=== PATIENT | male | born 1950 ===

== ENCOUNTER 2020-09-03 09:35 | Outpatient (REF) | payer MEDICARE, SELFPAY | END 2020-09-03 09:36 | disposition home or self-care (01) | LOC: HO.LAB 09:35 | PROVIDERS: Visit Provider Internal Medicine | DX: Z20.828 Contact with and (suspected) exposure to other viral communicable diseases (principal) | CPT/HCPCS: C9803; U0003 ==

== ENCOUNTER 2020-12-09 09:22 | Outpatient (REF) | payer MEDICARE, SELFPAY ==
--- NOTE | ~2020-12-09 | XR_ITS ---
EXAMINATION: XR HIP, RIGHT CLINICAL INFORMATION: Right hip pain COMPARISON: 06/11/2014 TECHNIQUE: Two views of the right hip. FINDINGS: Mild right hip arthritis, joint space loss. No acute fracture or dislocation. Small chronic appearing calcification adjacent to the greater trochanter. XR/XR hip RT min 2V IMPRESSION: Mild right hip arthritis. No evidence of acute osseous abnormality.
[2020-12-09 10:28] LABS: Alanine Aminotransferase 38 U/L (0-40); Albumin Level 4.3 g/dL (3.5-5.0); Alkaline Phosphatase 113 U/L (39-117); Anion Gap 12 (12-20); Aspartate Amino Transferase 24 U/L (5-37); Bilirubin Total 0.4 mg/dL (0.0-1.0); Blood Urea Nitrogen 16 mg/dL (9-16); Calcium 9.2 mg/dL (8.4-10.2); Carbon Dioxide 32 mmol/L (22-29); Chloride 102 mmol/L (96-108); Cholesterol 198 mg/dL; Estimated Glomerular Filt Rate > 60; Glucose Fasting 91 mg/dL (60-99); HDL Cholesterol 39 mg/dL; LDL Cholesterol Calculated 128 mg/dl; Potassium 4.3 mmol/L (3.3-5.1); Sodium 142 mmol/L (135-145); Total Protein 7.8 g/dL (6.5-8.0); Triglycerides 159 mg/dL
[2020-12-12 01:31] LABS: Folate 14.5 ng/mL (> or = 4.0); Vitamin B12 333 pg/mL (200-900)
[2020-12-13 11:46] LABS: Vitamin D 25-OH, D2 <4 ng/mL; Vitamin D 25-OH, D3 33 ng/mL; Vitamin D 25-OH, Total 33 ng/mL (30-100)
== END 2020-12-09 09:23 | disposition home or self-care (01) ==
LOC: HO.LAB 09:22
PROVIDERS: Visit Provider Internal Medicine
DX: M25.551 Pain in right hip (principal); E78.00 Pure hypercholesterolemia, unspecified; E78.5 Hyperlipidemia, unspecified; D51.0 Vitamin B12 deficiency anemia due to intrinsic factor deficiency; E55.9 Vitamin D deficiency, unspecified
CPT/HCPCS: 36415; 73502; 80053; 80061; 82306; 82607; 82746

== ENCOUNTER 2021-08-26 09:59 | Outpatient (RCR) | payer MEDICARE, SELFPAY ==
--- NOTE | 2021-08-26 11:31 | MHC.PT.EP ---
[facility] [place] [facility] [place] [facility] [place] [facility] [address] [place] Zhang [address] [phone] F: [phone] F: [phone] F: [phone] F: [phone] Physical Therapy Plan of Care Date of Evaluation: Date of Surgery: Diagnosis: pain in right hip Assessment: The pt arrived reporting right hip pain. He has a peculiar gait pattern where he looks as if he is hemiparetic. He hyperextends his left knee, leads with his right hand and right leg. He postures his left elbow. He has absolutely no control of his left knee terminal knee extension. Pt not able to correct gait pattern even with verbal cues. He has some comprehension difficulty as well with response to questions. He does best with clear one step commands. Pt given mat core and hip strength exercises. His history suggests he will respond best to flexion based exercises. He will also need balance retraining as part of his plan of care. Frequency and Duration: The patient will be seen 2x/week x 4 weeks. Short Term Goals: 1.Pt to demonstrate understanding of HEP. 2. Pt to be able to negotiate community obstacles such as curbs safely. Terminal Superintendent Goals: 1. The patient to be able to negotiate community obstacles such as curbs, ramps and open spaces without LOB for 100 feet. 4 weeks. - to improve activity tolerance to help community ambulation distances demonstrated by tolerating at least 45 minutes of therapeutic activity with less than 3 resting breaks. 3. Pt to be able to report a 50% incidence of right hip pain. Treatment Plan: Modalities to reduce pain, spasms and effusion. Manual therapy to restore motion and function. Therapeutic exercise to improve strength and flexibility. Neuromuscular re-education for posture and balance. Therapeutic activities to return to functional activities of daily living. Electronically signed by: Radha Fischer PT DPT Please sign and return to therapist. Thank you for your referral.
== END 2021-10-02 08:00 | disposition home or self-care (01) ==
LOC: HO.PT 09:59
PROVIDERS: PCP Internal Medicine; Visit Provider Internal Medicine
DX: M25.551 Pain in right hip (principal)
CPT/HCPCS: 97110; 97116; 97162

== ENCOUNTER 2021-12-21 08:56 | Outpatient (REF) | payer MEDICARE, SELFPAY ==
[2021-12-21 09:17] LABS: MANUAL DIFF FLAG NO
[2021-12-21 09:34] LABS: Basophils Absolute Auto 0.1 X10*3/uL (0.0-0.2); Basophils Percent Auto 0.9 % (0-2); Eosinophils Absolute Auto 0.4 X10*3/uL (0.0-0.4); Eosinophils Percent Auto 7.3 % (0-4); Hematocrit 40.7 % (42.0-52.0); Hemoglobin 12.9 g/dl (14.0-18.0); Imm Gran Abs Auto 0.02 X10*3/uL (0.00-0.03); Imm Gran Pct Auto 0.4 % (0.0-0.4); Lymphocytes Absolute Auto 1.9 X10*3/uL (1.2-4.9); Mean Corpuscular HGB Conc 31.7 g/dl (31.0-36.0); Mean Corpuscular Hemoglobin 27.7 pg (27.0-33.0); Mean Corpuscular Volume 87.3 fL (80.0-98.0); Mean Platelet Volume 9.6 fL (9.4-12.4); Monocytes Absolute Auto 0.4 X10*3/uL (0.1-1.2); Monocytes Percent Auto 7.3 % (2-11); Neutrophils Absolute Auto 2.8 x10*3/uL (2.0-8.3); Neutrophils Percent Auto 50.1 % (45-73); Platelet Count 210 X10*3/uL (160-400); Red Blood Count 4.66 X10*6/uL (4.60-5.80); Red Cell Distribution Width 14.2 % (11.0-16.0); White Blood Count 5.6 X10*3/uL (4.8-10.8)
[2021-12-21 10:08] LABS: Alanine Aminotransferase 17 U/L (0-40); Albumin Level 4.2 g/dL (3.5-5.0); Alkaline Phosphatase 86 U/L (39-117); Anion Gap 12 (12-20); Aspartate Amino Transferase 17 U/L (5-37); Bilirubin Total 0.3 mg/dL (0.0-1.0); Blood Urea Nitrogen 11 mg/dL (9-16); Calcium 9.7 mg/dL (8.4-10.2); Carbon Dioxide 31 mmol/L (22-29); Chloride 101 mmol/L (96-108); Cholesterol 242 mg/dL; Estimated Glomerular Filt Rate > 60; Glucose Fasting 99 mg/dL (60-99); HDL Cholesterol 40 mg/dL; LDL Cholesterol Calculated 161 mg/dl; Potassium 4.2 mmol/L (3.3-5.1); Sodium 140 mmol/L (135-145); Total Protein 7.8 g/dL (6.5-8.0); Triglycerides 208 mg/dL
[2021-12-21 10:40] LABS: Folate 15.5 ng/mL (> or = 4.0); Vitamin B12 501 pg/mL (200-900)
[2021-12-26 13:26] LABS: Vitamin D 25-OH, D2 <4 ng/mL; Vitamin D 25-OH, D3 31 ng/mL; Vitamin D 25-OH, Total 31 ng/mL (30-100)
== END 2021-12-21 08:57 | disposition home or self-care (01) ==
LOC: HO.LAB 08:56
PROVIDERS: PCP Internal Medicine; Visit Provider Internal Medicine
DX: D64.9 Anemia, unspecified (principal); K21.9 Gastro-esophageal reflux disease without esophagitis; E78.5 Hyperlipidemia, unspecified; D51.0 Vitamin B12 deficiency anemia due to intrinsic factor deficiency; E55.9 Vitamin D deficiency, unspecified
CPT/HCPCS: 36415; 80053; 80061; 82306; 82607; 82746; 85025

== ENCOUNTER 2023-04-26 11:11 | Outpatient (AMB) | payer MEDICARE, SELFPAY ==
--- NOTE | 2023-04-26 11:13 | A.OFFPC_ITS ---
Vital Signs 04/26/23 11:15 Height 5 ft 5 in Weight 205 lb BMI 34.1 BP 112/70 Blood Pressure Location Lt brachial Position Sitting Intake Visit Reasons: GERD, HLD Intake Note: Patient here for a follow up GERD, HLD, c/o left knee pain Nutritionist Public Health Required: No Accompanied by: Daughter Allergies No Known Allergies Allergy (Verified 04/26/23 11:27) Medication List - Last Reconciled 04/26/23 by Reyna Knutson MD cholecalciferol (vitamin D3) 50 mcg PO DAILY 90 days lidocaine 4% (Aspercreme (lidocaine)) 2 patches topical DAILY PRN omeprazole 20 mg PO DAILY 90 days Tobacco use date assessed: 10/27/22 Fall risk assessment: 1 Fall in past year Last assessed Fall Risk: 04/26/23 Dental Screening Dental Screen Date: 04/26/23 Did you have a dental visit in the last 12 months?: Yes Did you have a dental problem in the last 6 months where you did not have access to dental care?: No Was dental information given to patient?: Patient has dentist HPI HPI Comments History of Present Illness Details This is a 72-year-old male with pure hypercholesterolemia, GERD, pernicious anemia and low vitamin-D that comes today accompanied by daughter and daughter's friend Sara complaining of left knee pain that occasionally cause loss of balance and started few months ago. I will order x-ray and refer him to Ortho. Lipid panel will be reordered. GERD stable with PPIs. Vitamin B12 levels will also be order for his pernicious anemia. On supplements for low vitamin-D and vitamin-D levels will also be ordered. No chest pain or shortness of breath. Walks with a cane for gait stability. [facility] Medical History (Updated 04/26/23 @ 11:41 by Reyna Knutson MD) GERD (gastroesophageal reflux disease) Hypovitaminosis D Lumbar degenerative disc disease Osteoarthritis of right hip Pernicious anemia Pure hypercholesterolemia Right hip pain Venous (peripheral) insufficiency Surgical History History of colonoscopy History of surgery on arm Family History Father No problems noted. Mother Diabetes Hypertension Maternal Grandmother Stroke Son No problems noted. Son No problems noted. Daughter No problems noted. Daughter No problems noted. Social History Housing: House Alcohol intake: former Patient Tobacco Use Status: Former Tobacco user Tobacco use type: Cigarette e-Cigarette/Vaping Use: Never Used Second Hand Smoke Exposure: No service: No Current occupational status: disabled Cognitive needs: Yes (cane) Hearing needs: No Vision needs: No Questionnaire Thrive Questionnaire Date Thrive assessed: 10/27/22 FERNANDO-7 AMB Questionnaire FERNANDO-7 Date FERNANDO - 7 assessed: 10/27/22 Source: Developed by Drs. Maycol Chambers, Waleska Obrien, Alfredo Unger and colleagues, with an educational geo from [employer]. Review of Systems Const All systems reviewed & are unremarkable except as noted in HPI and below Eyes Reports no additional complaints, Denies change in vision and Denies other visual disturbances Card Denies chest pain at rest, Denies chest pain with activity, Denies edema, Denies irregular heart rhythm, Denies claudication, Denies dyspnea, Denies dyspnea on exertion, Denies orthopnea, Denies paroxysmal nocturnal dyspnea and Denies slow heart rate Resp Denies cough, Denies dyspnea and Denies dyspnea on exertion GI Denies abdominal pain, Denies change in bowel habits, Denies excessive flatus, Denies nausea and Denies vomiting Denies urinary hesitancy, Denies urinary incontinence and Denies urinary urgency Musc Denies abnormal gait, Denies atrophy, Denies deformity, Reports arthralgias and Denies limited range of motion Skin/Breast Denies bleeding lesions, Denies changing lesions and Denies rash Neuro Denies abnormal gait and Denies lack of coordination Physical exam (Primary Care) Vital Signs: Last Vital Signs BP 112/70 04/26/23 11:15 BMI result Body Mass Index 34.1 Tobacco/Smoking Status: Tobacco use Status Tobacco use date assessed 10/27/22 04/26/23 11:23 Patient Tobacco Use Status Former Tobacco user 04/26/23 11:23 Tobacco use type Cigarette 04/26/23 11:23 e-Cigarette/Vaping Use Never Used 04/26/23 11:23 Thrive Assessment: Date of Thrive Assessment Date Thrive assessed 10/27/22 04/26/23 11:23 Eyes General: appearance normal, both eyes and all related structures Eyelids: Yes eyelids normal Conjunctivae: conjunctivae normal Neck Neck: Yes normal visual inspection and Yes supple Resp Effort & Inspection: normal respiratory effort Auscultation: clear to auscultation bilaterally Cardio Jugular venous distension: no JVD Rate: regular rate Rhythm: regular rhythm Heart sounds: S1 normal heart sound present and S2 normal heart sound present Extrem General: Yes full ROM Assessment and Plan Assessment & Plan (1) Hypovitaminosis D: Code(s): E55.9 - Vitamin D deficiency, unspecified Plan: Continue vitamin-D supplement. (2) Pernicious anemia: Code(s): D51.0 - Vitamin B12 deficiency anemia due to intrinsic factor deficiency Plan: Repeat vitamin B12 levels. (3) GERD (gastroesophageal reflux disease): Code(s): K21.9 - Gastro-esophageal reflux disease without esophagitis Qualifiers: Esophagitis presence: esophagitis presence not specified Qualified Code(s): K21.9 - Gastro-esophageal reflux disease without esophagitis Plan: Continue PPIs as needed. (4) Pure hypercholesterolemia: Code(s): E78.00 - Pure hypercholesterolemia, unspecified Plan: Repeat lipid panel. (5) Left knee pain: Code(s): M25.562 - Pain in left knee Plan: X-ray ordered. Referred to Ortho. Orders: Orders Vitamin B12 and Folate Today E53.8 - Deficiency of other specified B group vitamins Comprehensive [place]. Panel Fast Today E78.00 - Pure hypercholesterolemia, unspecified Lipid Panel Today E78.5 - Hyperlipidemia, unspecified Vitamin D 25-OH Total Today E55.9 - Vitamin D deficiency, unspecified Complete Blood Count Auto Diff Today D51.0 - Vitamin B12 deficiency anemia due to intrinsic factor deficiency, D64.9 - Anemia, unspecified XR knee LT 2V Today M25.562 - Pain in left knee Referrals Orthopedics Referral M25.562 - Pain in left knee Medications: Refilled cholecalciferol (vitamin D3) 50 mcg PO DAILY 90 days 90 tabs 1RF Coding Level of Care Code Est Pt Level 4 (96725) Diagnoses Hypovitaminosis D E55.9 Pernicious anemia D51.0 GERD (gastroesophageal reflux disease) K21.9 Esophagitis presence: esophagitis presence not specified Pure hypercholesterolemia E78.00 Left knee pain M25.562 Time Spent (min) 22
[2023-04-26 11:15] VITALS: BP 112/70; BMI 34.1
== END 2023-04-26 11:34 | disposition home or self-care (01) ==
PROVIDERS: PCP Internal Medicine; Visit Provider Internal Medicine
DX: E55.9 Vitamin D deficiency, unspecified (principal); D51.0 Vitamin B12 deficiency anemia due to intrinsic factor deficiency; K21.9 Gastro-esophageal reflux disease without esophagitis; E78.00 Pure hypercholesterolemia, unspecified; M25.562 Pain in left knee
CPT/HCPCS: 99214

== ENCOUNTER 2023-05-24 08:55 | Outpatient (REF) | payer OTHER, SELFPAY ==
--- NOTE | ~2023-05-24 | XR_ITS ---
EXAMINATION: XR KNEE, LEFT CLINICAL INFORMATION: Pain in the left knee COMPARISON: None available. TECHNIQUE: Two views of the left knee. FINDINGS: No acute fracture or dislocation. There is slight to mild narrowing in the medial joint space compartment. No osteochondral lesions or erosions. Small suprapatellar effusion seen. XR/XR knee LT 2V IMPRESSION: No acute process. Slight to mild narrowing in the medial joint space compartment. Small suprapatellar effusion.
[2023-05-24 09:11] LABS: MANUAL DIFF FLAG NO
[2023-05-24 09:46] LABS: Basophils Absolute Auto 0.1 X10*3/uL (0.0-0.2); Basophils Percent Auto 1.1 % (0-2); Eosinophils Absolute Auto 0.4 X10*3/uL (0.0-0.4); Eosinophils Percent Auto 7.3 % (0-4); Hematocrit 40.9 % (42.0-52.0); Hemoglobin 13.1 g/dl (14.0-18.0); Imm Gran Abs Auto 0.02 X10*3/uL (0.00-0.03); Imm Gran Pct Auto 0.4 % (0.0-0.4); Lymphocytes Percent Auto 34.9 % (20-40); Mean Corpuscular Hemoglobin 28.1 pg (27.0-33.0); Mean Corpuscular Volume 87.8 fL (80.0-98.0); Mean Platelet Volume 9.9 fL (9.4-12.4); Monocytes Absolute Auto 0.4 X10*3/uL (0.1-1.2); Monocytes Percent Auto 7.1 % (2-11); Neutrophils Absolute Auto 2.8 x10*3/uL (2.0-8.3); Neutrophils Percent Auto 49.2 % (45-73); Platelet Count 254 X10*3/uL (160-400); Red Blood Count 4.66 X10*6/uL (4.60-5.80); Red Cell Distribution Width 13.9 % (11.0-16.0); White Blood Count 5.7 X10*3/uL (4.8-10.8)
[2023-05-24 11:08] LABS: Alanine Aminotransferase 15 U/L (0-40); Albumin Level 4.5 g/dL (3.5-5.0); Alkaline Phosphatase 78 U/L (39-117); Anion Gap 12 (12-20); Aspartate Amino Transferase 16 U/L (5-37); Bilirubin Total 0.4 mg/dL (0.0-1.0); Blood Urea Nitrogen 11 mg/dL (9-16); Calcium 9.8 mg/dL (8.4-10.2); Carbon Dioxide 32 mmol/L (22-29); Chloride 102 mmol/L (96-108); Cholesterol 246 mg/dL; Estimated Glomerular Filt Rate > 60; Glucose Fasting 90 mg/dL (60-99); HDL Cholesterol 39 mg/dL; LDL Cholesterol Calculated 165 mg/dl; Potassium 4.2 mmol/L (3.3-5.1); Sodium 142 mmol/L (135-145); Total Protein 8.3 g/dL (6.5-8.0); Triglycerides 211 mg/dL
[2023-05-24 11:10] LABS: Vitamin D 25-OH Total 42.3 ng/mL (>30)
[2023-05-24 11:22] LABS: Folate 14.1 ng/mL (> or = 4.0); Vitamin B12 > 2000 pg/mL (200-900)
== END 2023-05-24 08:56 | disposition home or self-care (01) ==
LOC: HO.XRAY 08:55
PROVIDERS: PCP Internal Medicine; Visit Provider Internal Medicine
DX: M25.562 Pain in left knee (principal); E53.8 Deficiency of other specified B group vitamins; E55.9 Vitamin D deficiency, unspecified; E78.00 Pure hypercholesterolemia, unspecified; D64.9 Anemia, unspecified
CPT/HCPCS: 36415; 73560; 80053; 80061; 82306; 82607; 82746; 85025

== ENCOUNTER 2023-05-31 14:51 | Outpatient (AMB) | payer MEDICARE, SELFPAY ==
--- NOTE | 2023-05-31 14:52 | MHC.OFFVIS ---
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 The patient describes his pain as sharp in nature. Most of pain is along the medial aspect of his. It is his left knee several years ago. He twisted his knee and had acute onset of pain. Since that time his symptoms have gotten worse in spite of continued non operative treatments. He has done physical therapy for 12 weeks last 6 months which aggravated his pain. He has also tried Tylenol and anti-inflammatory medicines which gave him minimal relief. Patient has had injections in the past. The most recent injection gave him only temporary relief. The patient states that his left knee will lock several times per day. Allergies No Known Allergies Allergy (Verified 05/31/23 14:53) [facility] Medical History (Updated 06/01/23 @ 07:17 by Jagdish Rogers MD) GERD (gastroesophageal reflux disease) Hypovitaminosis D Lumbar degenerative disc disease Osteoarthritis of right hip Pernicious anemia Pure hypercholesterolemia Right hip pain Venous (peripheral) insufficiency Surgical History History of colonoscopy History of surgery on arm Family History Father No problems noted. Mother Diabetes Hypertension Maternal Grandmother Stroke Son No problems noted. Son No problems noted. Daughter No problems noted. Daughter No problems noted. Social History Housing: House Alcohol intake: former Patient Tobacco Use Status: Former Tobacco user Tobacco use type: Cigarette e-Cigarette/Vaping Use: Never Used Second Hand Smoke Exposure: No service: No Current occupational status: disabled Cognitive needs: Yes (cane) Hearing needs: No Vision needs: No Physical Exam Vital Signs: BMI result Body Mass Index 34.1 Const Other: Well-nourished well-developed very friendly male awake alert and oriented x3 in no acute distress Extrem Other: Bilateral lower extremity examination shows good capillary refill, no skin lesions noted, normal sensation light touch Left knee examination shows a minimal effusion, minimal crepitus with range of motion, tenderness along his medial joint line, positive Earle's test, no instability Results Reviewed Results Reviewed: X-rays of the patient's left knee show mild diffuse joint space narrowing, no acute bony abnormalities Assessment & Plan Assessment & Plan (1) Tear of medial meniscus of left knee: Code(s): S83.242A - Other tear of medial meniscus, current injury, left knee, initial encounter Plan: Mr. Andrade Ventura presents with progressively worsening left knee pain and mechanical symptoms most likely due to a tear of his medial meniscus. Thus, I will send the patient for an MRI of his left knee. I will see him back after the imaging study to discuss the findings and treatment options. Feel free to call me at any time should questions regarding his orthopedic management arise. Thank you very much for asking me to see this very friendly gentleman. I spent 22 minutes in reviewing the patient's records and imaging studies, seeing the patient and documenting in the medical record. Orders: Orders MR knee LT wo con Today S83.242A - Other tear of medial meniscus, current injury, left knee, initial encounter Coding Level of Care Code New Pt Level 2 (27734) Diagnoses Tear of medial meniscus of left knee S83.242A
[2023-05-31 14:56] VITALS: BMI 34.1
== END 2023-05-31 15:38 | disposition home or self-care (01) ==
PROVIDERS: PCP Internal Medicine; Visit Provider Orthopaedic Surgery
DX: S83.242A Other tear of medial meniscus, current injury, left knee, initial encounter (principal)
CPT/HCPCS: 99202

== ENCOUNTER → 2023-05-31 14:51 | Outpatient (BNVA) | payer MEDICARE, SELFPAY | PROVIDERS: PCP Internal Medicine; Visit Provider Orthopaedic Surgery | DX: S83.242A Other tear of medial meniscus, current injury, left knee, initial encounter (principal) | CPT/HCPCS: 99202 ==

== ENCOUNTER 2023-08-02 19:23 | Outpatient (REF) | payer MEDICARE, SELFPAY ==
--- NOTE | ~2023-08-02 | MR_ITS ---
EXAMINATION: MR KNEE WITHOUT CONTRAST, LEFT CLINICAL INFORMATION: Left knee pain, swelling, numbness. Evaluate for a medial meniscal tear. COMPARISON: Left knee radiographs dated 05/24/2023. TECHNIQUE: MRI of the knee without contrast was performed using routine sequences on a high-field scanner. FINDINGS: MENISCI: Medial Meniscus: Minimal intrasubstance degenerative signal without articular surface tearing. Lateral Meniscus: Nondisplaced oblique inner margin tear of the meniscal body. Mild inner margin/tibial articular surface fraying of the posterior root. LIGAMENTS: Cruciate: Intact Collateral: Intact EXTENSOR MECHANISM: Intact ARTICULAR CARTILAGE/BONE: Patellofemoral Compartment: Patellar median ridge articular cartilage signal heterogeneity with fibrillation and areas of full-thickness fissuring as well as minimal subchondral cystic change. Central and medial trochlea articular cartilage signal heterogeneity and surface irregularity. Tiny marginal osteophytes. Medial Compartment: Posterior non-weightbearing articular cartilage full-thickness loss measuring up to 1.1 cm. Tiny marginal osteophytes. Lateral Compartment: Intact articular cartilage. Degenerative cystic change and marrow edema within the lateral femoral condyle adjacent to the popliteus tendon insertion. JOINT FLUID AND BURSAE: Small joint effusion and trace Weems's cyst. MUSCLES/TENDONS: Diffuse thickening and increased T2 signal with mild adjacent edema throughout the proximal aspect of the popliteus tendon, consistent with tendinosis and longitudinal partial tearing. No full-thickness transverse tendon tear or tendon retraction. MR/MR knee LT wo con IMPRESSION: 1. Nondisplaced oblique inner margin tear of the lateral meniscal body with mild inner margin/tibial articular surface fraying of the posterior root. 2. Minimal intrasubstance degenerative signal within the medial meniscus without articular surface tearing. 3. Severe popliteus tendinosis with longitudinal partial tearing and adjacent reactive marrow edema within the lateral femoral condyle. 4. Mild patellofemoral and medial compartment osteoarthritis. Small joint effusion and trace Weems's cyst.
== END 2023-08-02 19:24 | disposition home or self-care (01) ==
LOC: HO.MRI 19:23
PROVIDERS: PCP Internal Medicine; Visit Provider Orthopaedic Surgery
DX: S83.242A Other tear of medial meniscus, current injury, left knee, initial encounter (principal)
CPT/HCPCS: 73721

== ENCOUNTER 2023-11-02 12:42 | Outpatient (AMB) | payer MEDICARE, SELFPAY ==
--- NOTE | 2023-11-02 12:46 | MHC.PC.OV ---
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 Accompanied by: Daughter Allergies No Known Allergies Allergy (Verified 11/02/23 13:05) Medication List - Last Reconciled 11/02/23 by Reyna Knutson MD atorvastatin 20 mg PO BEDTIME 90 days cholecalciferol (vitamin D3) 50 mcg PO DAILY 90 days lidocaine 4% (Aspercreme (lidocaine)) 2 patches topical DAILY PRN omeprazole 20 mg PO DAILY 90 days Tobacco use date assessed: 11/02/23 Fall risk assessment: No Falls in past year Last assessed Fall Risk: 11/02/23 Dental Screening Dental Screen Date: 11/02/23 Did you have a dental visit in the last 12 months?: No Did you have a dental problem in the last 6 months where you did not have access to dental care?: No Was dental information given to patient?: Patient has dentist HPI HPI Comments History of Present Illness Details This is a 72-year-old male that comes accompanied by daughter Karuna for his physical exam. Walks with a cane for gait stability in due to left knee pain and will be referred to Ortho. Will have colonoscopy this month. No chest pain or shortness of breath. Compliant with medications. [facility] Medical History (Updated 06/01/23 @ 07:17 by Jagdish Rogers MD) Osteoarthritis of right hip Venous (peripheral) insufficiency Right hip pain Lumbar degenerative disc disease GERD (gastroesophageal reflux disease) Pure hypercholesterolemia Pernicious anemia Hypovitaminosis D Surgical History History of colonoscopy History of surgery on arm Family History Father No problems noted. Mother Diabetes Hypertension Maternal Grandmother Stroke Son No problems noted. Son No problems noted. Daughter No problems noted. Daughter No problems noted. Social History Housing: House Alcohol intake: former Patient Tobacco Use Status: Former Tobacco user Tobacco use type: Cigarette e-Cigarette/Vaping Use: Never Used Second Hand Smoke Exposure: No service: No Current occupational status: disabled Cognitive needs: Yes (cane) Hearing needs: No Vision needs: No Questionnaire PHQ-9 Over the last 2 weeks, how often have you been bothered by any of the following problems? 1. Little interest or pleasure in doing things: not at all 2. Feeling down, depressed, or hopeless: not at all 3. Trouble falling or staying asleep, or sleeping too much: not at all 4. Feeling tired or having little energy: not at all 5. Poor appetite or overeating: not at all 6. Feeling bad about yourself - or that you are a failure or have let yourself or your family down: not at all 7. Trouble concentrating on things, such as reading the newspaper or watching television: not at all 8. Moving or speaking so slowly that other people could have noticed. Or the opposite - being so fidgety or restless that you have been moving around a lot more than usual: not at all 9. Thoughts that you would be better off or of hurting yourself in some way: not at all Total score: 0 Depression Screening Interpretation: Negative Depression Screening Done: Yes 79263 - PHQ-9 Billing: Yes Source: Developed by Drs. Maycol Chambers, Waleska Obrien, Alfredo Unger and colleagues, with an educational geo from [employer]. Thrive Questionnaire Date Thrive assessed: 11/02/23 I am a: Patient What is your living situation today?: I have a steady place to live Within the past 12 months, did the food you bought not last and you didn't have the money to get more?: Never true Within the past 12 months, did you worry whether your food would run out before you got money to buy more?: Never true Do you have trouble paying for medicines?: No Do you have trouble getting transportation to medical appointments?: No Do you have trouble paying your heating and electricity bill?: No Do you have trouble taking care of your child, family member or friend?: No Do you have trouble with day-to-day activities such as bathing, preparing meals, shopping, managing finances, etc.?: No Are you currently unemployed and looking for a job?: No Are you interested in more education?: No Please select the resources that you would like help with: None AUDIT C Alcohol Use Questionnaire (AUDIT-C) 1. How often do you have a drink containing alcohol?: Never Total Score: 0 FERNANDO-7 AMB Questionnaire FERNANDO-7 Date FERNANDO - 7 assessed: 11/02/23 Feeling nervous, anxious, or on edge: 0 = Not at all Not being able to stop or control worryin = Not at all Worrying too much about different things: 0 = Not at all Trouble relaxin = Not at all Being so restless that it is hard to sit still: 0 = Not at all Becoming easily annoyed or irritable: 0 = Not at all Feeling afraid as if something awful might happen: 0 = Not at all Total FERNANDO-7 score (0-4 normal; 5-9 mild; 10-14 moderate; 15-21 severe): 0 Source: Developed by Drs. Maycol Chambers, Waleska Obrien, Alfredo Unger and colleagues, with an educational geo from [employer]. FERNANDO-7 Assessment Billing FERNANDO-7 Assessment Tool: FERNANDO-7 Assessment 47803 Review of Systems Const All systems reviewed & are unremarkable except as noted in HPI and below Eyes Reports no additional complaints, Denies change in vision and Denies other visual disturbances Card Denies chest pain at rest, Denies chest pain with activity, Denies edema, Denies irregular heart rhythm, Denies claudication, Denies dyspnea, Denies dyspnea on exertion, Denies orthopnea, Denies paroxysmal nocturnal dyspnea and Denies slow heart rate Resp Denies cough, Denies dyspnea and Denies dyspnea on exertion GI Denies abdominal pain, Denies change in bowel habits, Denies excessive flatus, Denies nausea and Denies vomiting Denies urinary hesitancy, Denies urinary incontinence and Denies urinary urgency Musc Denies abnormal gait, Denies atrophy, Denies deformity and Denies limited range of motion Skin/Breast Denies bleeding lesions, Denies changing lesions and Denies rash Neuro Denies abnormal gait, Denies behavioral changes, Denies confusion and Denies lack of coordination Psych Denies behavioral changes and Denies confusion Physical exam (Primary Care) Vital Signs: Last Vital Signs BP 110/70 11/02/23 12:51 BMI result Body Mass Index 34.4 Tobacco/Smoking Status: Tobacco use Status Tobacco use date assessed 11/02/23 11/02/23 12:56 Patient Tobacco Use Status Former Tobacco user 11/02/23 12:48 Tobacco use type Cigarette 11/02/23 12:48 e-Cigarette/Vaping Use Never Used 11/02/23 12:48 PHQ-9: PHQ-9 Score PHQ-9: Total score 0 11/02/23 13:10 Depression Screening Interpretation: Negative Thrive Assessment: Date of Thrive Assessment Date Thrive assessed 11/02/23 11/02/23 12:59 Const General: No confusion Orientation/consciousness: patient oriented x3 and No confusion Limitations: ambulation with cane HENMT Head: Yes normal to inspection, Yes normocephalic and Yes atraumatic Ears: external ears normal Eyes General: appearance normal, both eyes and all related structures Eyelids: Yes eyelids normal Conjunctivae: conjunctivae normal Neck Neck: Yes normal visual inspection and Yes supple Resp Effort & Inspection: normal respiratory effort Auscultation: clear to auscultation bilaterally Cardio Jugular venous distension: no JVD Rate: regular rate Rhythm: regular rhythm Heart sounds: S1 normal heart sound present and S2 normal heart sound present GI Inspection: Yes normal to inspection Palpation (GI): Soft to palpation and nontender Auscultation: normal bowel sounds Skin General skin exam: no rashes or lesions noted Neuro General: patient oriented x3, no focal motor deficits and No confusion Extrem General: Yes full ROM Psych Appearance: grossly normal Assessment and Plan Assessment & Plan (1) Adult general medical exam: Code(s): Z00.00 - Encounter for general adult medical examination without abnormal findings Plan: Repeat in a year. Orders: Orders IRON PROFILE Today D64.9 - Anemia, unspecified Comprehensive [place]. Panel Fast Today Z00.00 - Encounter for general adult medical examination without abnormal findings Complete Blood Count Auto Diff Today D64.9 - Anemia, unspecified Vitamin B12 and Folate Today E53.8 - Deficiency of other specified B group vitamins Vitamin D 25-OH Total Today E55.9 - Vitamin D deficiency, unspecified Lipid Panel Today E78.5 - Hyperlipidemia, unspecified Referrals Orthopedics Referral S83.242A - Other tear of medial meniscus, current injury, left knee, initial encounter Coding Level of Care Code Est Pt Prev Care >65y(88703) Diagnoses Adult general medical exam Z00.00 Additional Codes FERNANDO-7 Assessment Billing - FERNANDO-7 Assessment Tool: FERNANDO-7 Assessment 58544 ([id number]) Time Spent (min) 31
[2023-11-02 12:51] VITALS: BP 110/70; BMI 34.4
== END 2023-11-02 13:17 | disposition home or self-care (01) ==
PROVIDERS: Visit Provider Internal Medicine
DX: Z00.00 Encounter for general adult medical examination without abnormal findings (principal)
CPT/HCPCS: 99397

== ENCOUNTER 2023-11-16 10:59 | Day surgery (SDC) | payer OTHER, SELFPAY ==
[2023-08-26 13:44] VITALS: BMI 37.1
--- NOTE | 2023-08-29 08:35 | P.CONAN_ITS ---
HPI - Anesthesia Eval Consult details Narrative: 72yo M for Colonoscopy [facility] Active Problems Active Problems: All Active Problems (Updated 06/01/23 @ 07:17 by Jagdish Rogers MD) Tear of medial meniscus of left knee (Acute) Left knee pain (Acute) Obesity (BMI 30-39.9) (Acute) Bilateral knee pain (Acute) Screening for colon cancer (Acute) Screening for prostate cancer (Acute) Adult general medical exam (Acute) Osteoarthritis of right hip (Acute) Venous (peripheral) insufficiency (Acute) Right hip pain (Acute) Lumbar degenerative disc disease (Acute) GERD (gastroesophageal reflux disease) (Acute) Pure hypercholesterolemia (Acute) Pernicious anemia (Acute) Hypovitaminosis D (Acute) Past Medical History Medical History (Updated 06/01/23 @ 07:17 by Jagdish Rogers MD) Osteoarthritis of right hip Venous (peripheral) insufficiency Right hip pain Lumbar degenerative disc disease GERD (gastroesophageal reflux disease) Pure hypercholesterolemia Pernicious anemia Hypovitaminosis D Family History Family History Father No problems noted. Mother Diabetes Hypertension Maternal Grandmother Stroke Son No problems noted. Son No problems noted. Daughter No problems noted. Daughter No problems noted. Surgical History Surgical History History of colonoscopy History of surgery on arm Social History Social History Housing: House Alcohol intake: former Patient Tobacco Use Status: Former Tobacco user Tobacco use type: Cigarette e-Cigarette/Vaping Use: Never Used Second Hand Smoke Exposure: No service: No Current occupational status: disabled Cognitive needs: Yes (cane) Hearing needs: No Vision needs: No Meds Allergies Allergy/AdvReac Type Severity Reaction Status Date / Time No Known Allergies Allergy Verified 05/31/23 14:53 Exam Exam Date and Time: August 29, 2023 0835 Height,Weight and Vital Signs: Height 5 ft 6 in Weight 104.326 kg Pertinent Lab Results Pertinent Lab Results: Laboratory Tests 05/24/23 09:10 WBC 5.7 Hgb 13.1 L Hct 40.9 L Plt Count 254 Sodium 142 Potassium 4.2 Chloride 102 Carbon Dioxide 32 H BUN 11 Creatinine 1.03 Assessment and Plan Assessment Anesthesia Assessment: Chart Reviewed
--- NOTE | 2023-10-25 09:47 | HO.ANESPROP2 ---
HPI - Anesthesia Eval Consult details Narrative: 72yo M for Colonoscopy PMF Active Problems Active Problems: All Active Problems (Updated 06/01/23 @ 07:17 by Jagdish Rogers MD) Tear of medial meniscus of left knee (Acute) Left knee pain (Acute) Obesity (BMI 30-39.9) (Acute) Bilateral knee pain (Acute) Screening for colon cancer (Acute) Screening for prostate cancer (Acute) Adult general medical exam (Acute) Osteoarthritis of right hip (Acute) Venous (peripheral) insufficiency (Acute) Right hip pain (Acute) Lumbar degenerative disc disease (Acute) GERD (gastroesophageal reflux disease) (Acute) Pure hypercholesterolemia (Acute) Pernicious anemia (Acute) Hypovitaminosis D (Acute) Past Medical History Medical History (Updated 06/01/23 @ 07:17 by Jagdish Rogers MD) Osteoarthritis of right hip Venous (peripheral) insufficiency Right hip pain Lumbar degenerative disc disease GERD (gastroesophageal reflux disease) Pure hypercholesterolemia Pernicious anemia Hypovitaminosis D Family History Family History Father No problems noted. Mother Diabetes Hypertension Maternal Grandmother Stroke Son No problems noted. Son No problems noted. Daughter No problems noted. Daughter No problems noted. Surgical History Surgical History History of colonoscopy History of surgery on arm Social History Social History Housing: House Alcohol intake: former Patient Tobacco Use Status: Former Tobacco user Tobacco use type: Cigarette e-Cigarette/Vaping Use: Never Used Second Hand Smoke Exposure: No service: No Current occupational status: disabled Cognitive needs: Yes (cane) Hearing needs: No Vision needs: No Meds Allergies Allergy/AdvReac Type Severity Reaction Status Date / Time No Known Allergies Allergy Verified 05/31/23 14:53 Exam Height,Weight and Vital Signs: Height 5 ft 6 in Weight 104.326 kg Pertinent Lab Results Pertinent Lab Results: Laboratory Tests 05/24/23 09:10 WBC 5.7 Hgb 13.1 L Hct 40.9 L Plt Count 254 Sodium 142 Potassium 4.2 Chloride 102 Carbon Dioxide 32 H BUN 11 Creatinine 1.03 Assessment and Plan Assessment Anesthesia Assessment: Chart Reviewed
--- NOTE | 2023-10-26 13:02 | PC.NURSE ---
Anticipated arrival for procedure was 12 noon. Pt called and message left ( [place])- no response.by 1 pm
--- NOTE | 2023-11-15 10:54 | P.CONAN_ITS ---
Documented by User: Irma Meeks NP 11/15/23 10:55 HPI - Anesthesia Eval Consult details Narrative: 72yo M for Colonoscopy PMFSH Active Problems Active Problems: All Active Problems (Updated 06/01/23 @ 07:17 by Jagdish Rogers MD) Tear of medial meniscus of left knee (Acute) Left knee pain (Acute) Obesity (BMI 30-39.9) (Acute) Bilateral knee pain (Acute) Screening for colon cancer (Acute) Screening for prostate cancer (Acute) Adult general medical exam (Acute) Osteoarthritis of right hip (Acute) Venous (peripheral) insufficiency (Acute) Right hip pain (Acute) Lumbar degenerative disc disease (Acute) GERD (gastroesophageal reflux disease) (Acute) Pure hypercholesterolemia (Acute) Pernicious anemia (Acute) Hypovitaminosis D (Acute) Past Medical History Medical History Osteoarthritis of right hip Venous (peripheral) insufficiency Right hip pain Lumbar degenerative disc disease GERD (gastroesophageal reflux disease) Pure hypercholesterolemia Pernicious anemia Hypovitaminosis D Family History Family History Father No problems noted. Mother Diabetes Hypertension Maternal Grandmother Stroke Son No problems noted. Son No problems noted. Daughter No problems noted. Daughter No problems noted. Surgical History Surgical History History of colonoscopy History of surgery on arm Social History Social History Housing: House Alcohol intake: former Patient Tobacco Use Status: Former Tobacco user Tobacco use type: Cigarette e-Cigarette/Vaping Use: Never Used Second Hand Smoke Exposure: No Use of substances other than those prescribed or required for medical reasons: No Are you DNR?: No Advance Directives: No Advance Directives Information Provided: Yes service: No Current occupational status: disabled Cognitive needs: Yes (cane) Hearing needs: No Vision needs: No Meds Allergies Allergy/AdvReac Type Severity Reaction Status Date / Time No Known Allergies Allergy Verified 11/16/23 12:02 Exam Height,Weight and Vital Signs: Height 5 ft 6 in Weight 104.326 kg Pertinent Lab Results Pertinent Lab Results: Laboratory Tests 05/24/23 09:10 WBC 5.7 Hgb 13.1 L Hct 40.9 L Plt Count 254 Sodium 142 Potassium 4.2 Chloride 102 Carbon Dioxide 32 H BUN 11 Creatinine 1.03 Assessment and Plan Assessment Anesthesia Assessment: Chart Reviewed Documented by User: Rosamaria Pitts MD 11/16/23 13:31 [facility] Active Problems Active Problems: All Active Problems (Updated 11/16/23 @ 12:49 by Rosamaria Pitts MD) Tear of medial meniscus of left knee (Acute) Left knee pain (Acute) Obesity (BMI 30-39.9) (Acute) Bilateral knee pain (Acute) Screening for colon cancer (Acute) Screening for prostate cancer (Acute) Adult general medical exam (Acute) Osteoarthritis of right hip (Acute) Venous (peripheral) insufficiency (Acute) Right hip pain (Acute) Lumbar degenerative disc disease (Acute) GERD (gastroesophageal reflux disease) (Acute) Pure hypercholesterolemia (Acute) Pernicious anemia (Acute) Hypovitaminosis D (Acute) Past Medical History Medical History Osteoarthritis of right hip Venous (peripheral) insufficiency Right hip pain Lumbar degenerative disc disease GERD (gastroesophageal reflux disease) Pure hypercholesterolemia Pernicious anemia Hypovitaminosis D Family History Family History Father No problems noted. Mother Diabetes Hypertension Maternal Grandmother Stroke Son No problems noted. Son No problems noted. Daughter No problems noted. Daughter No problems noted. Family history of problems with anesthesia: No Surgical History Surgical History History of colonoscopy History of surgery on arm History of Problems with Anesthesia: No Social History Social History Housing: House Alcohol intake: former Patient Tobacco Use Status: Former Tobacco user Tobacco use type: Cigarette e-Cigarette/Vaping Use: Never Used Second Hand Smoke Exposure: No Use of substances other than those prescribed or required for medical reasons: No Are you DNR?: No Advance Directives: No Advance Directives Information Provided: Yes service: No Current occupational status: disabled Cognitive needs: Yes (cane) Hearing needs: No Vision needs: No Meds Allergies Allergy/AdvReac Type Severity Reaction Status Date / Time No Known Allergies Allergy Verified 11/16/23 12:02 Exam Height,Weight and Vital Signs: Height 5 ft 6 in Weight 104.326 kg Vital Signs Temp Pulse Resp BP Pulse Ox O2 Del Method 11/16/23 12:05 97.8 F 62 16 122/68 98 Room Air Airway Mallampati Class: III TM Dist: >3cm Neck ROM: Full Denture: Upper and Lower Loose/Missing/Broken Teeth: Yes (Full dentures @ home) Heart: RRR Lungs: CTAB Assessment and Plan Assessment Anesthesia Assessment: Anesthesia Plan Discussed Final Anesthetic Review Family History of Problems with Anesthesia: No History of Problems with Anesthesia: No NPO: Yes ASA Class: III Final Preanesthetic Review: No Changes in Pt Med Stat, Meds/Allgs Chart Reviewed, Consent Obtained/Reviewed and Anes Risks/Benef Reviewed Patient Risk: Intermediate Procedure Risk: Low Assessment/Block/Sedation in SS: Assess/Block/Sedation-SS Anesthetic Plan Anesthetic Plan: MAC: and TIVA Disposition: Standard PACU
[2023-11-16 11:39] VITALS: BMI 37.0
[2023-11-16 12:05] VITALS: BP 122/68; PULSE 62; RESP 16; TEMP 36.6; O2SAT 98
[2023-11-16] MEDS: Lactated Ringers 1,000 ML 100 ML IVCONT (12:07)
--- NOTE | 2023-11-16 13:26 | MHC.SHP ---
Pre-Procedural Eval Section A - 24 Hr Update-Section A only Date of Service: 11/16/23 Section B - Complete if H&P > 30 days Chief Complaint: Encounter for screening for malignant neoplasm of Details of Present Illness: see H&P no changes Relevant Family History (Specify if Yes): No Relevant Social History: None Present Medications: see Short Stay Collaborative assessment Medical History: No relevant PMH History of Previous Operations: Relevant previous surgery/procedure and date(s) Allergies: Allergies Allergy/AdvReac Type Severity Reaction Status Date / Time No Known Allergies Allergy Verified 11/16/23 12:02 Review of Systems Sugical H&P ROS: Negative: Constitution, Cardiovascular, Respiratory, Neurological, Psychiatric, Hem-Onc, Allergic/Immunologic, Gastrointestinal, Genitourinary, Musculoskeletal, Integumentary, Endocrine and Eyes/Ears/Nose/Throat Exam Surgical H&P Exam: Normal: HEENT, Normal: Heart, Normal: Lungs, Normal: Extremities, Normal: Abdomen, Normal: Skin and Normal: Neurological Plan Diagnosis/Plan: Unchanged I have reviewed the history and physical and performed a pertinent physical examination on my patient. No changes have occurred unless specified. Time Spent With Patient Time: Total time managing care of this patient today ____ minutes.
[2023-11-16 14:03] VITALS: BP 89/49; PULSE 67; RESP 18; TEMP 36.1; O2SAT 95
[2023-11-16 14:18] VITALS: BP 90/50; PULSE 54; RESP 16; O2SAT 96
[2023-11-16 14:33] VITALS: BP 108/63; PULSE 57; RESP 16; O2SAT 96
--- NOTE | 2023-11-16 14:44 | OP_ITS ---
DATE OF SERVICE: 11/16/2023 SURGEON: Justin Turk MD INDICATIONS: Colon cancer screening and prior history of polyps. PREOPERATIVE DIAGNOSIS: POSTOPERATIVE DIAGNOSIS: PROCEDURE PERFORMED: Colonoscopy to the terminal ileum with biopsy. ESTIMATED BLOOD LOSS: COMPLICATIONS: ANESTHESIA: Medications: Monitored anesthesia care. ASSISTANTS: SPECIMENS: DESCRIPTION OF PROCEDURE: History and physical performed. The risks, benefits of the procedure were explained to the patient. Informed consent was obtained. The patient was placed in left lateral decubitus position. A digital rectal exam was performed and was found to be normal. The Olympus pediatric video colonoscope was introduced into the rectum and advanced to the cecum. The cecum was identified by transillumination, palpation, and identification of ileocecal valve. The abdominal wall pressure was used to assist in advancement of the scope due to looping in the sigmoid. Examination was performed. The scope was removed. He tolerated the procedure well, was returned to recovery area in stable condition. FINDINGS: The terminal ileum was examined and appeared normal. The visualized colonic mucosa was normal. The quality of prep was good. A total of 3 polyps were removed with biopsy forceps. All measured less than 5 mm. Polyps were located at 70 cm, 45 cm, and 35 cm. Retroflexed examination showed moderate-sized internal hemorrhoids. IMPRESSION: Colon polyps. RECOMMENDATION: Follow up the biopsy results. MD EMILIE Branch/MAGNUS / [id number]
[2023-11-16 14:48] VITALS: BP 124/69; PULSE 58; RESP 16; TEMP 36.2; O2SAT 97
[2023-11-16 15:00] VITALS: BP 122/68; PULSE 62; RESP 16; O2SAT 97
== END 2023-11-16 15:56 | disposition home or self-care (01) ==
PROVIDERS: PCP Internal Medicine; Visit Provider Internal Medicine Gastroenterology
PROC: 0DJD8ZZ Inspection of Lower Intestinal Tract, Via Natural or Artificial Opening Endoscopic (ICD-10-PCS; CPT 45378; principal; 2023-11-16 13:00)
DX: Z12.11 Encounter for screening for malignant neoplasm of colon (principal); Z86.010 Personal history of colon polyps; D12.4 Benign neoplasm of descending colon; D12.5 Benign neoplasm of sigmoid colon; K64.8 Other hemorrhoids; K21.9 Gastro-esophageal reflux disease without esophagitis; E78.5 Hyperlipidemia, unspecified; E53.8 Deficiency of other specified B group vitamins; Z79.899 Other long term (current) drug therapy; Z98.890 Other specified postprocedural states; Z87.891 Personal history of nicotine dependence
CPT/HCPCS: 45380; 88305; J2704

== ENCOUNTER 2023-11-23 12:53 | Outpatient (AMB) | payer OTHER, SELFPAY ==
--- NOTE | 2023-11-23 12:55 | A.OFFVIS_ITS ---
Intake Intake Visit Reasons: ov- MRI left knee Intake Note: Judah is a 72 year old male who presents today with complaints of left knee pain and locking. The patient describes his pain as sharp in nature. Most of pain is along the medial aspect of his. It is his left knee several years ago. He twisted his knee and had acute onset of pain. Since that time his symptoms have gotten worse in spite of continued non operative treatments. He has done physical therapy for 12 weeks last 6 months which aggravated his pain. He has also tried Tylenol and anti-inflammatory medicines which gave him minimal relief. Patient has had injections in the past. The most recent injection gave him only temporary relief. The patient states that his left knee will lock several times per day. Leaf Sticker Name: [id number] Allergies No Known Allergies Allergy (Verified 11/23/23 13:01) Medication List - Last Reconciled 11/23/23 by Jagdish Rogers MD atorvastatin 20 mg PO BEDTIME 90 days cholecalciferol (vitamin D3) 50 mcg PO DAILY 90 days lidocaine 4% (Aspercreme (lidocaine)) 2 patches topical DAILY PRN omeprazole 20 mg PO DAILY 90 days [facility] Medical History Osteoarthritis of right hip Venous (peripheral) insufficiency Right hip pain Lumbar degenerative disc disease GERD (gastroesophageal reflux disease) Pure hypercholesterolemia Pernicious anemia Hypovitaminosis D Surgical History History of colonoscopy History of surgery on arm Family History Father No problems noted. Mother Diabetes Hypertension Maternal Grandmother Stroke Son No problems noted. Son No problems noted. Daughter No problems noted. Daughter No problems noted. Social History Housing: House Alcohol intake: former Patient Tobacco Use Status: Former Tobacco user Tobacco use type: Cigarette e-Cigarette/Vaping Use: Never Used Second Hand Smoke Exposure: No service: No Current occupational status: disabled Cognitive needs: Yes (cane) Hearing needs: No Vision needs: No Physical Exam Const Other: Well-nourished well-developed very friendly male awake alert and oriented x3 in no acute distress Extrem Other: Bilateral lower extremity examination shows good capillary refill, no skin lesions noted, normal sensation light touch Left knee examination shows a minimal effusion, minimal crepitus with range of motion, tenderness along the medial and lateral joint lines, positive Earle's test, no instability Results Reviewed Results Reviewed: Standing full weight-bearing x-rays of the patient's left knee show minimal diffuse joint space narrowing, no acute bony abnormalities MRI of the patient's left knee shows mild diffuse degenerative changes as well as a tear of the medial meniscus and possible lateral Assessment & Plan Assessment & Plan (1) Tear of medial meniscus of left knee: Code(s): S83.242A - Other tear of medial meniscus, current injury, left knee, initial encounter Plan Mr. Andrade Ventura presents with left knee pain and mechanical symptoms due to a medial meniscus tear and possible lateral meniscus tearing. I had a lengthy discussion with the patient and his daughter regarding the treatment options. At this point the patient has failed continued non operative treatments. The risks and benefits of left knee arthroscopic surgery were discussed at length with the patient. The patient wishes to proceed with surgery. Surgery will most likely involve left knee diagnostic arthroscopy with arthroscopic partial medial meniscectomy and possible arthroscopic partial lateral meniscectomy. The patient will be scheduled for next available date. Will be given a prescription for pain medicine at the time of his surgery. He will follow-up as instructed. Feel free to call me at any time should questions regarding his orthopedic management arise. I spent 22 minutes in reviewing the patient's records and imaging studies, seeing the patient and documenting in the medical record. Coding Level of Care Code Est Pt Level 2 (36953) Diagnoses Tear of medial meniscus of left knee S83.242A
== END 2023-11-23 13:18 | disposition home or self-care (01) ==
PROVIDERS: PCP Internal Medicine; Visit Provider Orthopaedic Surgery
DX: S83.242A Other tear of medial meniscus, current injury, left knee, initial encounter (principal)
CPT/HCPCS: 99213

== ENCOUNTER → 2023-11-23 12:53 | Outpatient (BNVA) | payer OTHER, SELFPAY | PROVIDERS: PCP Internal Medicine; Visit Provider Orthopaedic Surgery | DX: S83.242A Other tear of medial meniscus, current injury, left knee, initial encounter (principal) | CPT/HCPCS: 99212 ==

== ENCOUNTER 2024-01-06 06:43 | Day surgery (SDC) | payer OTHER, SELFPAY ==
[2024-01-04 07:44] VITALS: BMI 34.4
--- NOTE | 2024-01-04 12:16 | HO.ANESPROP2 ---
Documented by User: Irma Meeks NP 01/04/24 12:17 HPI - Anesthesia Eval Consult details Narrative: 73yo M for Left Knee Arthroscopy, partial medial meniscectomy, possible lateral meniscectomy s/p Harper 11/2023 with MAC PMFSH Active Problems Active Problems: All Active Problems (Updated 12/26/23 @ 17:56 by Reyna Knutson MD) Onychogryposis (Acute) Tear of medial meniscus of left knee (Acute) Left knee pain (Acute) Obesity (BMI 30-39.9) (Acute) Bilateral knee pain (Acute) Screening for colon cancer (Acute) Screening for prostate cancer (Acute) Adult general medical exam (Acute) Osteoarthritis of right hip (Acute) Venous (peripheral) insufficiency (Acute) Right hip pain (Acute) Lumbar degenerative disc disease (Acute) GERD (gastroesophageal reflux disease) (Acute) Pure hypercholesterolemia (Acute) Pernicious anemia (Acute) Hypovitaminosis D (Acute) Past Medical History Medical History Osteoarthritis of right hip Venous (peripheral) insufficiency Right hip pain Lumbar degenerative disc disease GERD (gastroesophageal reflux disease) Pure hypercholesterolemia Pernicious anemia Hypovitaminosis D Family History Family History Father No problems noted. Mother Diabetes Hypertension Maternal Grandmother Stroke Son No problems noted. Son No problems noted. Daughter No problems noted. Daughter No problems noted. Family history of problems with anesthesia: No Surgical History Surgical History History of colonoscopy History of surgery on arm History of Problems with Anesthesia: No Social History Social History Housing: House Alcohol intake: former Patient Tobacco Use Status: Former Tobacco user Tobacco use type: Cigarette e-Cigarette/Vaping Use: Never Used Second Hand Smoke Exposure: No Use of substances other than those prescribed or required for medical reasons: No Are you DNR?: No Advance Directives: No Advance Directives Information Provided: Yes service: No Current occupational status: disabled Cognitive needs: Yes (cane) Hearing needs: No Vision needs: No Meds Allergies Allergy/AdvReac Type Severity Reaction Status Date / Time No Known Allergies Allergy Verified 01/06/24 07:49 Active Medications: Current Medications Cefazolin Sodium/Dextrose (Ancef) 2 gm in 50 mls @ 100 mls/hr IV PREOP ONE Stop: 01/06/24 05:57 Exam Height,Weight and Vital Signs: Height 5 ft 5 in Weight 93.894 kg Assessment and Plan Assessment Anesthesia Assessment: Chart Reviewed Final Anesthetic Review Family History of Problems with Anesthesia: No History of Problems with Anesthesia: No Documented by User: Naomi Hunt MD 01/06/24 08:24 [facility] Past Medical History Medical History Osteoarthritis of right hip Venous (peripheral) insufficiency Right hip pain Lumbar degenerative disc disease GERD (gastroesophageal reflux disease) Pure hypercholesterolemia Pernicious anemia Hypovitaminosis D Family History Family History Father No problems noted. Mother Diabetes Hypertension Maternal Grandmother Stroke Son No problems noted. Son No problems noted. Daughter No problems noted. Daughter No problems noted. Surgical History Surgical History History of colonoscopy History of surgery on arm Social History Social History Housing: House Alcohol intake: former Patient Tobacco Use Status: Former Tobacco user Tobacco use type: Cigarette e-Cigarette/Vaping Use: Never Used Second Hand Smoke Exposure: No Use of substances other than those prescribed or required for medical reasons: No Are you DNR?: No Advance Directives: No Advance Directives Information Provided: Yes service: No Current occupational status: disabled Cognitive needs: Yes (cane) Hearing needs: No Vision needs: No Meds Allergies Allergy/AdvReac Type Severity Reaction Status Date / Time No Known Allergies Allergy Verified 01/06/24 07:49 Exam Airway Mallampati Class: II TM Dist: >3cm Neck ROM: Limited Heart: rrr Lungs: cta Assessment and Plan Assessment Anesthesia Assessment: Anesthesia Plan Discussed Final Anesthetic Review NPO: Yes ASA Class: III Final Preanesthetic Review: No Changes in Pt Med Stat, Meds/Allgs Chart Reviewed, Consent Obtained/Reviewed and Anes Risks/Benef Reviewed Patient Risk: Intermediate Procedure Risk: Low Anesthetic Plan Anesthetic Plan: GA Disposition: Standard PACU
[2024-01-06] VITALS (8 sets, daily range): BP systolic 97–114; BP diastolic 45–73; PULSE 68–93; RESP 14–18; TEMP 36.4–36.5; O2SAT 94–100; BMI 28.8
[2024-01-06] MEDS: Lactated Ringers 1,000 ML 100 ML IVCONT (08:21)
--- NOTE | 2024-01-06 08:58 | P.HPOP_ITS ---
History of Present Illness History of Present Illness Date of Service: 01/06/24 Chief complaint: tear of lateral and medial meniscus Narrative: Judah is a 72 year old male who presents today with complaints of left knee pain and locking. The patient describes his pain as sharp in nature. Most of pain is along the medial aspect of his. It is his left knee several years ago. He twisted his knee and had acute onset of pain. Since that time his symptoms have gotten worse in spite of continued non operative treatments. He has done physical therapy for 12 weeks last 6 months which aggravated his pain. He has also tried Tylenol and anti-inflammatory medicines which gave him minimal relief. Patient has had injections in the past. The most recent injection gave him only temporary relief. The patient states that his left knee will lock several times per day. [facility] Past Medical History Medical History Osteoarthritis of right hip Venous (peripheral) insufficiency Right hip pain Lumbar degenerative disc disease GERD (gastroesophageal reflux disease) Pure hypercholesterolemia Pernicious anemia Hypovitaminosis D Family History Family History Father No problems noted. Mother Diabetes Hypertension Maternal Grandmother Stroke Son No problems noted. Son No problems noted. Daughter No problems noted. Daughter No problems noted. Surgical History Surgical History History of colonoscopy History of surgery on arm Social History Social History Housing: House Alcohol intake: former Patient Tobacco Use Status: Former Tobacco user Tobacco use type: Cigarette e-Cigarette/Vaping Use: Never Used Second Hand Smoke Exposure: No Use of substances other than those prescribed or required for medical reasons: No Are you DNR?: No Advance Directives: No Advance Directives Information Provided: Yes service: No Current occupational status: disabled Cognitive needs: Yes (cane) Hearing needs: No Vision needs: No Meds Allergies Allergy/AdvReac Type Severity Reaction Status Date / Time No Known Allergies Allergy Verified 01/06/24 07:49 Active Medications: Current Medications Lactated Ringer's (Lr) 1,000 mls @ 100 mls/hr IVCONT .Q10H GURDEEP Last Admin: 01/06/24 08:21 Dose: 100 mls/hr Ondansetron HCl (Ondansetron Hcl 4 Mg/2 Ml Vial) 4 mg IVPUSH ONCE PRN PRN Reason: Nausea and Vomiting Stop: 01/06/24 14:23 Oxycodone HCl (Oxycodone Hcl Immed Release 5 Mg Tablet) 5 mg PO ONCE PRN PRN Reason: Pain, Severe (Pain Scale 7-10) Stop: 01/06/24 14:22 Physical Exam Vital Signs: Vital Signs: Last Vital Signs Temp 97.5 F 01/06/24 08:07 Pulse 68 01/06/24 08:07 Resp 16 01/06/24 08:07 BP 114/73 01/06/24 08:07 Pulse Ox 97 01/06/24 08:07 O2 Del Method Room Air 01/06/24 08:07 BMI result Body Mass Index 28.8 Const: Other: Well-nourished well-developed very friendly male awake alert and oriented x3 in no acute distress Extrem: Other: Bilateral lower extremity examination shows good capillary refill, no skin lesions noted, normal sensation light touch Left knee examination shows a minimal effusion, minimal crepitus with range of motion, tenderness along his medial and lateral joint lines, positive Earle's test Results Labs Labs: MRI of the patient's left knee shows mild diffuse degenerative changes as well as a tear of the medial meniscus and possible tearing of the lateral meniscus Standing full weight-bearing x-rays of the patient's left knee show mild diffuse joint space narrowing, no acute bony abnormalities Assessment and Plan (1) Tear of medial meniscus of left knee: Status: Acute Plan Mr. Andrade Ventura presents with progressively worsening left knee pain and mechanical symptoms due to a tear of his medial meniscus and possible lateral meniscus tearing. I had a lengthy discussion with the patient regarding the treatment options. At this point he has failed continued non operative treatments. The risks and benefits of left knee arthroscopic surgery were discussed at length with the patient. The patient wishes to proceed. Surgery will most likely involve left knee diagnostic arthroscopy with partial medial meniscectomy and possible partial lateral meniscectomy. The patient does understand that he may not get 100% relief of his symptoms depending on the severity of his degenerative changes. I will see the patient back in 2 weeks for his 1st postoperative appointment. The patient will follow-up as instructed. Quality Stroke Does the patient have a stroke diagnosis?: No VTE Prior VTE?: No VTE Risk Level:: Surgical - low VTE Device Contraindication: N/A - Device Ordered VTE Drug Contraindication: Treatment Not Indicated Procedures Date of Service Date of Service: 01/06/24
--- NOTE | 2024-01-06 10:38 | P.BOP_ITS ---
Brief Operative Note Date of Service: 01/06/24 Pre-op diagnosis: Left knee medial meniscus tear, left knee lateral meniscus tear, left knee degenerative joint disease Post-op diagnosis: same Procedure: Left knee diagnostic arthroscopy with left knee arthroscopic partial medial and lateral meniscectomies, left knee arthroscopic chondroplasty of the undersurface of the patella Implants: none Surgeon: Jagdish Rogers MD Anesthesia: GLMA Was an Resourcing Consultant used for this Procedure?: No Estimated blood loss (mL): 10 Pathology: none sent Condition: stable Disposition: PACU
--- NOTE | 2024-01-06 10:39 | W.PM.OPN ---
Operative Note Operative Note Date of Service: 01/06/24 Narrative: After the patient was identified as Judah Ventura and his left knee was initialed by myself they were brought to the operating room where general anesthesia was induced by the anesthesiologist in routine fashion. The patient was given 2 g of IV Ancef preoperatively for infection prophylaxis. The patient's left lower extremity was prepped and draped in sterile fashion. A formal time-out was completed. Marcaine was injected into the planned incision sites as well as the patient's left knee joint. A #11 scalpel blade was used to make an anterolateral portal 1 cm proximal to the joint line and 1 cm lateral to the patellar tendon. Blunt trocar technique was used to enter the suprapatellar pouch with the knee in extension. Diagnostic arthroscopy showed multiple bands of thickened plica which would be excised at the end of the procedure. There were no loose bodies or abnormalities found in either the medial or lateral gutters. The articular surface of the patella showed diffuse grade 2 degenerative changes. The trochlear groove articular surface showed diffuse grade 1 degenerative changes. The patient's knee was flexed to 45 degrees and a valgus force was placed upon it. The medial compartment was entered. An anteromedial portal was made 1 cm proximal to the joint line and 1 cm medial to the patellar tendon. Probing of the medial meniscus showed a radial tear of the posterior horn. A partial medial meniscectomy was performed using the arthroscopic shaver. Following the partial meniscectomy the remainder of the meniscus tissue was stable. There were diffuse grades 1 and 2 degenerative changes of the medial femoral condyle as well as grade 1 degenerative changes of the medial tibial plateau. The articular surfaces of the medial femoral condyle and medial tibial plateau were already smooth so no chondroplasty was indicated. The patient's knee was placed into a neutral position. There was no injury to the anterior cruciate ligament. The patient's knee was then placed in the figure of 4 position and the lateral compartment was entered. There was a radial tear of the anterior horn of the lateral meniscus. A partial lateral meniscectomy was performed using the arthroscopic shaver. There were minimal degenerative changes of the lateral femoral condyle and lateral tibial plateau. The patient's knee was once again brought into extension and the suprapatellar pouch was entered. The arthroscopic shaver and the ArthroCare Wand were used to excise the thickened bands of plica. The undersurface of the patella was then made smooth using the arthroscopic shaver. The articular surface of the trochlear groove was already smooth so no chondroplasty was indicated. The knee joint was irrigated and then drained. All arthroscopic instruments were removed. The 2 portals were closed with 3-0 nylon interrupted suture. The knee joint was injected with Marcaine. Dry sterile dressing and Umberto bandages were placed over the patient's knee. The patient was awoken and extubated in the operating room. The patient was transferred to the recovery room in stable condition.
[2024-01-06] MEDS: cefTRIAXone sodium 1 GM in 0.9 % Sodium Chloride 50 ML IV (10:52)
== END 2024-01-06 12:10 | disposition home or self-care (01) ==
PROVIDERS: PCP Internal Medicine; Visit Provider Orthopaedic Surgery
PROC: (CPT 29870; principal; 2024-01-06 08:40)
DX: S83.242A Other tear of medial meniscus, current injury, left knee, initial encounter (principal); S83.282A Other tear of lateral meniscus, current injury, left knee, initial encounter; M17.12 Unilateral primary osteoarthritis, left knee; M67.52 Plica syndrome, left knee; X50.1XXA Overexertion from prolonged static or awkward postures, initial encounter; Y93.9 Activity, unspecified; Y92.9 Unspecified place or not applicable; Y99.9 Unspecified external cause status; M51.36 Other intervertebral disc degeneration, lumbar region; I87.2 Venous insufficiency (chronic) (peripheral); D51.0 Vitamin B12 deficiency anemia due to intrinsic factor deficiency; E55.9 Vitamin D deficiency, unspecified; E78.00 Pure hypercholesterolemia, unspecified; Z79.899 Other long term (current) drug therapy; Z87.891 Personal history of nicotine dependence
CPT/HCPCS: 29880; 29876; J0131; J0171; J0690; J0696; J2795; J3010

== ENCOUNTER → 2024-01-06 06:43 | Outpatient (BNV) | payer OTHER, SELFPAY | PROVIDERS: PCP Internal Medicine; Visit Provider Orthopaedic Surgery | DX: S83.242A Other tear of medial meniscus, current injury, left knee, initial encounter (principal); S83.282A Other tear of lateral meniscus, current injury, left knee, initial encounter | CPT/HCPCS: 29880; 99221 ==

== ENCOUNTER 2024-01-19 13:39 | Outpatient (AMB) | payer OTHER, SELFPAY ==
--- NOTE | 2024-01-19 06:39 | A.OFFVIS_ITS ---
Intake Intake Visit Reasons: PO LT Knee 01/06/24 Intake Note: Judah a 73 year old male who presents today for a post operative left knee on 01/06/24 Patient reports he is doing well, states his pain has been tolerable and it gets worse at night. 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 Rogers. He states his pain has been tolerable however his pain is worse at night. He is doing well otherwise and has no other concerns today. [facility] Medical History Osteoarthritis of right hip Venous (peripheral) insufficiency Right hip pain Lumbar degenerative disc disease GERD (gastroesophageal reflux disease) Pure hypercholesterolemia Pernicious anemia Hypovitaminosis D Surgical History History of colonoscopy History of surgery on arm Family History Father No problems noted. Mother Diabetes Hypertension Maternal Grandmother Stroke Son No problems noted. Son No problems noted. Daughter No problems noted. Daughter No problems noted. Social History Housing: House Alcohol intake: former Patient Tobacco Use Status: Former Tobacco user Tobacco use type: Cigarette e-Cigarette/Vaping Use: Never Used Second Hand Smoke Exposure: No service: No Current occupational status: disabled Cognitive needs: Yes (cane) Hearing needs: No Vision needs: No Review of Systems Const All systems reviewed & are unremarkable except as noted in HPI and below Physical Exam Extrem Other: Left knee: Incision clean, dry and intact. No erythema or drainage. ROM is 0-95 degrees. Calf supple, nontender. NVI. Results Reviewed Results Reviewed: Brief Operative Note Date of Service: 01/06/24 Pre-op diagnosis: Left knee medial meniscus tear, left knee lateral meniscus tear, left knee degenerative joint disease Post-op diagnosis: same Procedure: Left knee diagnostic arthroscopy with left knee arthroscopic partial medial and lateral meniscectomies, left knee arthroscopic chondroplasty of the undersurface of the patella Implants: none Surgeon: Jagdish Rogers MD Assessment & Plan Assessment & Plan (1) Tear of medial meniscus of left knee: Code(s): S83.242A - Other tear of medial meniscus, current injury, left knee, initial encounter (2) Osteoarthritis of left knee: Code(s): M17.12 - Unilateral primary osteoarthritis, left knee Plan Sutures removed today, steri strips applied. I educated him on the importance of avoiding deep bending, kneeling, pivoting, or squatting and working on physical therapy. He will see us back in [address] Rogers, sooner if needed. Orders: Orders PT Evaluation and Treatment Today M17.12 - Unilateral primary osteoarthritis, left knee, S83.242A - Other tear of medial meniscus, current injury, left knee, initial encounter Patient Instructions: Scribed for Nicky Mccarthy PA-C, by Deuce Lopez medical terminologist, on 01/19/2024 at 2:00 PM EST. I, Nicky Mccarthy PA-C, have personally reviewed and agree with the information entered by the scribe. Coding Level of Care Code Global (67088) Diagnoses Tear of medial meniscus of left knee S83.242A Osteoarthritis of left knee M17.12
== END 2024-01-19 14:57 | disposition home or self-care (01) ==
PROVIDERS: PCP Internal Medicine; Visit Provider Physician Assistant
DX: S83.242A Other tear of medial meniscus, current injury, left knee, initial encounter (principal); M17.12 Unilateral primary osteoarthritis, left knee
CPT/HCPCS: 99024

== ENCOUNTER → 2024-01-19 13:39 | Outpatient (BNVA) | payer OTHER, SELFPAY | PROVIDERS: PCP Internal Medicine; Visit Provider Physician Assistant | DX: S83.242D Other tear of medial meniscus, current injury, left knee, subsequent encounter (principal); M17.12 Unilateral primary osteoarthritis, left knee | CPT/HCPCS: 99212 ==

== ENCOUNTER 2024-02-16 10:54 | Outpatient (AMB) | payer OTHER, SELFPAY ==
--- NOTE | 2024-02-16 10:58 | A.OFFVIS_ITS ---
Intake Visit Reasons: PO LT Knee 01/06/24 Intake Note: Judah is a 73 year old male who presents for his post operative appointment s/p left knee on 01/06/24 Patient reports he is doing well and has no problems at this time. He does take Tylenol as needed for intermittent discomfort. He denies any fevers or chills. Quality Improvement Manager Name: [id number] Allergies No Known Allergies Allergy (Verified 02/16/24 11:04) Medication List - Last Reconciled 02/16/24 by Jagdish Rogers MD atorvastatin 20 mg PO BEDTIME 90 days cholecalciferol (vitamin D3) 50 mcg PO DAILY 90 days lidocaine 4% (Aspercreme (lidocaine)) 2 patches topical DAILY PRN omeprazole 20 mg PO DAILY 90 days oxycodone 5 mg PO Q6H PRN 1 week PFSH Medical History Osteoarthritis of right hip Venous (peripheral) insufficiency Right hip pain Lumbar degenerative disc disease GERD (gastroesophageal reflux disease) Pure hypercholesterolemia Pernicious anemia Hypovitaminosis D Surgical History History of colonoscopy History of surgery on arm Family History Father No problems noted. Mother Diabetes Hypertension Maternal Grandmother Stroke Son No problems noted. Son No problems noted. Daughter No problems noted. Daughter No problems noted. Social History Housing: House Alcohol intake: former Patient Tobacco Use Status: Former Tobacco user Tobacco use type: Cigarette e-Cigarette/Vaping Use: Never Used Second Hand Smoke Exposure: No service: No Current occupational status: disabled Cognitive needs: Yes (cane) Hearing needs: No Vision needs: No Physical Exam Extrem Other: Bilateral lower extremity examination shows good capillary refill, no skin lesions noted, normal sensation light touch Left knee examination shows that the surgical incisions are well healed, no erythema, minimal crepitus with range of motion, minimal discomfort with range of motion, no instability Assessment & Plan Assessment & Plan (1) Left knee pain: Code(s): M25.562 - Pain in left knee Category: Medical Plan Mr. Andrade Ventura continues to do well after undergoing left knee arthroscopic surgery on 01/06/2024. Will continue with his home exercise program. Activity modifications were discussed at length with the patient. He will contact me prior to his follow-up appointment in 3 months should any questions or concerns arise. Feel free to call me at any time should questions regarding his orthopedic management arise. Coding Level of Care Code Global (17074) Diagnoses Left knee pain M25.562
== END 2024-02-16 11:18 | disposition home or self-care (01) ==
PROVIDERS: PCP Internal Medicine; Visit Provider Orthopaedic Surgery
DX: M25.562 Pain in left knee (principal)
CPT/HCPCS: 99024

== ENCOUNTER → 2024-02-16 10:54 | Outpatient (BNVA) | payer OTHER, SELFPAY | PROVIDERS: PCP Internal Medicine; Visit Provider Orthopaedic Surgery | DX: Z47.89 Encounter for other orthopedic aftercare (principal); M25.562 Pain in left knee | CPT/HCPCS: 99212 ==

== ENCOUNTER 2024-05-22 11:01 | Outpatient (AMB) | payer OTHER, SELFPAY ==
--- NOTE | 2024-05-22 11:07 | MHC.OFFVIS ---
Intake Visit Reasons: Right knee pain Intake Note: Judah is a 73 year old male who presents with complaints of progressively worsening right knee pain and giving way. The patient did undergo left knee arthroscopic surgery on 01/06/2024. Reports minimal discomfort in his left knee. He describes his right knee pain as sharp and severe in nature. Most of the pain is along the medial aspect of his right knee. The patient states that he injured his right knee approximately 1 year ago. He twisted his knee and had acute onset of pain. Since that time his symptoms have gotten worse in spite of continued non operative treatments. He has failed the last 6 weeks of conservative treatment. He has had cortisone injections in the past which gave him minimal relief. States that his right knee will give out several times per day. He has tried Tylenol and anti-inflammatory medicines which gave him minimal relief. He has also done physical therapy which aggravated his pain. Allergies No Known Allergies Allergy (Verified 05/22/24 11:19) Medication List - Last Reconciled 05/22/24 by Jagdish Rogers MD atorvastatin 20 mg PO BEDTIME 90 days cholecalciferol (vitamin D3) 50 mcg PO DAILY 90 days lidocaine 4% (Aspercreme (lidocaine)) 2 patches topical DAILY PRN omeprazole 20 mg PO DAILY 90 days oxycodone 5 mg PO Q6H PRN 1 week PFSH Medical History Osteoarthritis of right hip Venous (peripheral) insufficiency Right hip pain Lumbar degenerative disc disease GERD (gastroesophageal reflux disease) Pure hypercholesterolemia Pernicious anemia Hypovitaminosis D Surgical History History of colonoscopy History of surgery on arm Family History Father No problems noted. Mother Diabetes Hypertension Maternal Grandmother Stroke Son No problems noted. Son No problems noted. Daughter No problems noted. Daughter No problems noted. Social History Housing: House Alcohol intake: former Patient Tobacco Use Status: Former Tobacco user Tobacco use type: Cigarette e-Cigarette/Vaping Use: Never Used Second Hand Smoke Exposure: No service: No Current occupational status: disabled Cognitive needs: Yes (cane) Hearing needs: No Vision needs: No Physical Exam Const Other: Well-nourished well-developed very friendly male awake alert and oriented x3 in no acute distress Extrem Other: Bilateral lower extremity examination shows good capillary refill, no skin lesions noted, normal sensation light touch Left knee examination shows that the surgical incisions are well healed, no erythema, minimal discomfort with range of motion, minimal crepitus with range of motion Right knee examination shows a positive Earle's test, tenderness along his medial joint line, pain with range of motion, no crepitus with range of motion Results Reviewed Results Reviewed: Standing full weight-bearing x-rays of the patient's right knee show minimal joint space narrowing, no acute bony abnormalities Assessment & Plan Assessment & Plan (1) Right knee pain: Code(s): M25.561 - Pain in right knee Category: Medical Plan Mr. Andrade Ventura is doing very well after undergoing left knee arthroscopic surgery on 01/06/2024. He does have progressively worsening right knee pain and mechanical symptoms most likely due to a tear of his medial meniscus. Thus, I will send the patient for an MRI of his right knee for further evaluation. I will see him back once the MRI is completed to discuss the findings and treatment options. Feel free to call me at any time should questions regarding his orthopedic management arise. I spent 21 minutes in reviewing the patient's records and imaging studies, seeing the patient and documenting in the medical record. Orders: Orders knee RT wo con Today M25.561 - Pain in right knee Coding Level of Care Code Est Pt Level 3 (55620) Diagnoses Right knee pain M25.561
== END 2024-05-22 11:20 | disposition home or self-care (01) ==
PROVIDERS: PCP Internal Medicine; Visit Provider Orthopaedic Surgery
DX: M25.561 Pain in right knee (principal)
CPT/HCPCS: 99213

== ENCOUNTER → 2024-05-22 11:01 | Outpatient (BNVA) | payer OTHER, SELFPAY | PROVIDERS: PCP Internal Medicine; Visit Provider Orthopaedic Surgery | DX: M25.561 Pain in right knee (principal) | CPT/HCPCS: 99212 ==

== ENCOUNTER 2024-09-05 17:47 | Outpatient (REF) | payer OTHER, SELFPAY ==
--- NOTE | ~2024-09-05 | MR_ITS ---
EXAMINATION: MR KNEE WITHOUT CONTRAST, RIGHT CLINICAL INFORMATION: Knee pain COMPARISON: None available. TECHNIQUE: MRI of the knee without contrast was performed using routine sequences on a high-field scanner. FINDINGS: MENISCI: Medial Meniscus: Intrasubstance degenerative appearing signal in the posterior horn and body. No definite tear is seen. Lateral Meniscus: No tear is seen. LIGAMENTS: Cruciate: Intact Collateral: Intact EXTENSOR MECHANISM: Intact ARTICULAR CARTILAGE/BONE: Patellofemoral Compartment: High grade/full thickness chondral loss in the mid central patella, subchondral cyst/edema. Chondral thinning and fissuring otherwise in the patella, scattered foci in the trochlea. Medial Compartment: Weightbearing medial femoral condyle chondral heterogeneity and surface irregularity. Lateral Compartment: No significant chondral loss. No fracture. JOINT FLUID AND BURSAE: Small effusion. No significant Weems's cyst.. MR/MR knee RT wo con IMPRESSION: 1. Intrasubstance degenerative appearing signal in the posterior horn and body of the medial meniscus. No definite tear is seen. 2. Mild patellofemoral and medial compartment arthritis. 3. Small effusion. Electronically signed by: Cesar Paredes MD 09/25/2024 10:18 AM [facility]
== END 2024-09-05 17:48 | disposition home or self-care (01) ==
LOC: HO.MRI 17:47
PROVIDERS: PCP Internal Medicine; Visit Provider Orthopaedic Surgery
DX: M25.561 Pain in right knee (principal)
CPT/HCPCS: 73721

== ENCOUNTER 2024-10-01 11:05 | Outpatient (AMB) | payer OTHER, SELFPAY ==
[2024-10-01 11:35] VITALS: BMI 28.8
--- NOTE | 2024-10-01 11:35 | MHC.OFFVIS ---
Vital Signs 10/01/24 11:35 Height 5 ft 7 in Weight 184 lb BMI 28.8 Intake Visit Reasons: right knee pain and giving way Intake Note: Judah is a 73 year old male who presents with complaints of progressively worsening right knee pain and giving way. The patient did undergo left knee arthroscopic surgery on 01/06/2024. Reports minimal discomfort in his left knee. He describes his right knee pain as sharp and severe in nature. Most of the pain is along the medial aspect of his right knee. The patient states that he injured his right knee approximately 1 year ago. He twisted his knee and had acute onset of pain. Since that time his symptoms have gotten worse in spite of continued non operative treatments. He has failed the last 6 weeks of conservative treatment. He has had cortisone injections in the past which gave him minimal relief. States that his right knee will give out several times per day. He has tried Tylenol and anti-inflammatory medicines which gave him minimal relief. He has also done physical therapy which aggravated his pain. House Builder Required: Yes House Builder Language: Epic [employer] Services: House Builder Present House Builder Name: MEME Leonard/YANIV Allergies No Known Allergies Allergy (Verified 10/01/24 11:36) Medication List - Last Reconciled 10/01/24 by Jagdish Rogers MD atorvastatin 20 mg PO BEDTIME 90 days cholecalciferol (vitamin D3) 50 mcg PO DAILY 90 days lidocaine 4% (Aspercreme (lidocaine)) 2 patches topical DAILY PRN omeprazole 20 mg PO DAILY 90 days oxycodone 5 mg PO Q6H PRN 1 week [standard [facility] commode As directed] Transfer Bench As directed [facility] Medical History Osteoarthritis of right hip Venous (peripheral) insufficiency Right hip pain Lumbar degenerative disc disease GERD (gastroesophageal reflux disease) Pure hypercholesterolemia Pernicious anemia Hypovitaminosis D Surgical History History of colonoscopy History of surgery on arm Family History Father No problems noted. Mother Diabetes Hypertension Maternal Grandmother Stroke Son No problems noted. Son No problems noted. Daughter No problems noted. Daughter No problems noted. Social History Housing: House Alcohol intake: former Patient Tobacco Use Status: Former Tobacco user Tobacco use type: Cigarette e-Cigarette/Vaping Use: Never Used Second Hand Smoke Exposure: No service: No Current occupational status: disabled Cognitive needs: Yes (cane) Hearing needs: No Vision needs: No Physical Exam Vital Signs: BMI result Body Mass Index 28.8 Const Other: Well-nourished well-developed very friendly male awake alert and oriented x3 in no acute distress Extrem Other: Bilateral lower extremity examination shows good capillary refill, no skin lesions noted, normal sensation light touch Right knee examination shows a minimal effusion, minimal crepitus with range of motion, tenderness along his medial joint line, positive Earle's test, no instability Results Reviewed Results Reviewed: Standing full weight-bearing x-rays of the patient's right knee taken previously show mild diffuse joint space narrowing, no acute bony abnormalities MRI of the patient's right knee shows mild diffuse degenerative changes as well as a medial meniscus tear Assessment & Plan Assessment & Plan (1) Tear of medial meniscus of right knee: Code(s): S83.241A - Other tear of medial meniscus, current injury, right knee, initial encounter Category: Medical Plan Mr. Andrade Ventura presents with progressively worsening right knee pain and mechanical symptoms due to a medial meniscus tear. I had a lengthy discussion with the patient regarding the treatment options. At this point he has failed continued non operative treatments. The risks and benefits of right knee arthroscopic surgery were discussed at length with the patient. The patient wishes to proceed with surgery. Surgery will most likely involve right knee arthroscopic partial medial meniscectomy. The patient does understand that he may not get 100% relief of his symptoms depending on the severity of his degenerative changes. The patient will be scheduled for next available date. He will follow-up as instructed. Feel free to call me at any time should questions regarding his orthopedic management arise. I spent 20 minutes in reviewing the patient's records and imaging studies, seeing the patient and documenting in the medical record. Coding Level of Care Code Est Pt Level 3 (54824) Complex EM visit Add On G2211 Diagnoses Tear of medial meniscus of right knee S83.241A
== END 2024-10-01 12:09 | disposition home or self-care (01) ==
PROVIDERS: PCP Internal Medicine; Visit Provider Orthopaedic Surgery
DX: S83.241A Other tear of medial meniscus, current injury, right knee, initial encounter (principal)
CPT/HCPCS: 99213; G2211

== ENCOUNTER → 2024-10-01 11:05 | Outpatient (BNVA) | payer OTHER, SELFPAY | PROVIDERS: PCP Internal Medicine; Visit Provider Orthopaedic Surgery | DX: S83.241A Other tear of medial meniscus, current injury, right knee, initial encounter (principal); X58.XXXA Exposure to other specified factors, initial encounter; Y93.9 Activity, unspecified; Y92.9 Unspecified place or not applicable; Y99.9 Unspecified external cause status | CPT/HCPCS: 99212 ==

== ENCOUNTER 2024-11-02 08:53 | Outpatient (REF) | payer OTHER, SELFPAY ==
[2024-11-02 09:13] LABS: MANUAL DIFF FLAG NO
[2024-11-02 09:43] LABS: Basophils Absolute Auto 0.1 X10*3/uL (0.0-0.2); Basophils Percent Auto 1.1 % (0-2); Eosinophils Absolute Auto 0.3 X10*3/uL (0.0-0.4); Eosinophils Percent Auto 5.2 % (0-4); Hematocrit 40.1 % (42.0-52.0); Hemoglobin 13.1 g/dl (14.0-18.0); Imm Gran Abs Auto 0.02 X10*3/uL (0.00-0.03); Imm Gran Pct Auto 0.4 % (0.0-0.4); Lymphocytes Absolute Auto 1.9 X10*3/uL (1.2-4.9); Lymphocytes Percent Auto 36.2 % (20-40); Mean Corpuscular HGB Conc 32.7 g/dl (31.0-36.0); Mean Corpuscular Hemoglobin 28.4 pg (27.0-33.0); Mean Corpuscular Volume 86.8 fL (80.0-98.0); Mean Platelet Volume 9.3 fL (9.4-12.4); Monocytes Absolute Auto 0.5 X10*3/uL (0.1-1.2); Monocytes Percent Auto 9.3 % (2-11); Neutrophils Absolute Auto 2.6 x10*3/uL (2.0-8.3); Neutrophils Percent Auto 47.8 % (45-73); Platelet Count 245 X10*3/uL (160-400); Red Blood Count 4.62 X10*6/uL (4.60-5.80); Red Cell Distribution Width 13.9 % (11.0-16.0); White Blood Count 5.4 X10*3/uL (4.8-10.8)
[2024-11-02 10:42] LABS: Alanine Aminotransferase 21 U/L (0-40); Albumin Level 4.3 g/dL (3.5-5.0); Alkaline Phosphatase 82 U/L (39-117); Anion Gap 12 (12-20); Aspartate Amino Transferase 20 U/L (5-37); Bilirubin Total 0.5 mg/dL (0.0-1.0); Blood Urea Nitrogen 13 mg/dL (9-16); Calcium 8.9 mg/dL (8.4-10.2); Carbon Dioxide 28 mmol/L (22-29); Chloride 105 mmol/L (96-108); Cholesterol 240 mg/dL (<200); Estimated Glomerular Filt Rate > 60; Glucose Fasting 89 mg/dL (60-99); HDL Cholesterol 39 mg/dL (>40); Iron 67 mcg/dL (45-160); LDL Cholesterol Calculated 168 mg/dL (<100); Percent Iron Saturation 28 % (15-50); Sodium 141 mmol/L (135-145); Total Iron Binding Capacity 243 mcg/dL (228-428); Total Protein 8.2 g/dL (6.5-8.0); Triglycerides 169 mg/dL (<150); Unsaturated Iron Binding 176 ug/dL
[2024-11-02 10:51] LABS: Folate 15.2 ng/mL (> or = 4.0); Vitamin B12 312 pg/mL (200-900)
== END 2024-11-02 08:54 | disposition home or self-care (01) ==
LOC: HO.LAB 08:53
PROVIDERS: PCP Internal Medicine; Visit Provider Internal Medicine
DX: Z13.89 Encounter for screening for other disorder (principal)
CPT/HCPCS: 36415; 80053; 80061; 82306; 82607; 82746; 83540; 85025

== ENCOUNTER 2024-11-02 09:17 | Day surgery (SDC) | payer OTHER, SELFPAY ==
[2024-10-31 09:43] VITALS: BMI 28.8
--- NOTE | 2024-11-01 10:12 | HO.ANESPROP2 ---
Documented by User: Irma Meeks NP 11/01/24 10:12 HPI - Anesthesia Eval Consult details Narrative: 73yo M for Right Knee Arthroscopy partial medial meniscectomy PMFSH Active Problems Active Problems: All Active Problems Tear of medial meniscus of right knee (Acute) Right knee pain (Acute) Osteoarthritis of left knee (Acute) Onychogryposis (Acute) Tear of medial meniscus of left knee (Acute) Left knee pain (Acute) Obesity (BMI 30-39.9) (Acute) Bilateral knee pain (Acute) Screening for colon cancer (Acute) Screening for prostate cancer (Acute) Adult general medical exam (Acute) Osteoarthritis of right hip (Acute) Venous (peripheral) insufficiency (Acute) Right hip pain (Acute) Lumbar degenerative disc disease (Acute) GERD (gastroesophageal reflux disease) (Acute) Pure hypercholesterolemia (Acute) Pernicious anemia (Acute) Hypovitaminosis D (Acute) Past Medical History Medical History Osteoarthritis of right hip Venous (peripheral) insufficiency Right hip pain Lumbar degenerative disc disease GERD (gastroesophageal reflux disease) Pure hypercholesterolemia Pernicious anemia Hypovitaminosis D Family History Family History Father No problems noted. Mother Diabetes Hypertension Maternal Grandmother Stroke Son No problems noted. Son No problems noted. Daughter No problems noted. Daughter No problems noted. Family history of problems with anesthesia: No Surgical History Surgical History History of colonoscopy History of surgery on arm History of Problems with Anesthesia: No Social History Social History Housing: House Alcohol intake: former Patient Tobacco Use Status: Former Tobacco user Tobacco use type: Cigarette e-Cigarette/Vaping Use: Never Used Second Hand Smoke Exposure: No Use of substances other than those prescribed or required for medical reasons: No Are you DNR?: No Advance Directives: No Advance Directives Information Provided: Yes service: No Current occupational status: disabled Cognitive needs: Yes (cane) Hearing needs: No Vision needs: No Meds Allergies Allergy/AdvReac Type Severity Reaction Status Date / Time No Known Allergies Allergy Verified 11/02/24 10:45 Active Medications: Current Medications Cefazolin Sodium/Dextrose (Ancef) 2 gm in 50 mls @ 100 mls/hr IV PREOP ONE Stop: 11/02/24 05:30 Home Medications ?Medication ?Instructions ?Recorded ?Confirmed ?Last Taken ?Type Probiotic PO DAILY 11/02/24 Unknown History omeprazole 20 mg capsule,delayed 20 mg PO DAILY PRN Heartburn 11/02/24 Unknown History release Exam Height,Weight and Vital Signs: Height 5 ft 7 in Weight 83.461 kg Assessment and Plan Assessment Anesthesia Assessment: Chart Reviewed Final Anesthetic Review Family History of Problems with Anesthesia: No History of Problems with Anesthesia: No Documented by User: Paige Mckee MD 11/02/24 11:44 [facility] Past Medical History Medical History Osteoarthritis of right hip Venous (peripheral) insufficiency Right hip pain Lumbar degenerative disc disease GERD (gastroesophageal reflux disease) Pure hypercholesterolemia Pernicious anemia Hypovitaminosis D Family History Family History Father No problems noted. Mother Diabetes Hypertension Maternal Grandmother Stroke Son No problems noted. Son No problems noted. Daughter No problems noted. Daughter No problems noted. Surgical History Surgical History History of colonoscopy History of surgery on arm Social History Social History Housing: House Alcohol intake: former Patient Tobacco Use Status: Former Tobacco user Tobacco use type: Cigarette e-Cigarette/Vaping Use: Never Used Second Hand Smoke Exposure: No Use of substances other than those prescribed or required for medical reasons: No Are you DNR?: No Advance Directives: No Advance Directives Information Provided: Yes service: No Current occupational status: disabled Cognitive needs: Yes (cane) Hearing needs: No Vision needs: No Meds Allergies Allergy/AdvReac Type Severity Reaction Status Date / Time No Known Allergies Allergy Verified 11/02/24 10:45 Home Medications ?Medication ?Instructions ?Recorded ?Confirmed ?Last Taken ?Type Probiotic PO DAILY 11/02/24 Unknown History omeprazole 20 mg capsule,delayed 20 mg PO DAILY PRN Heartburn 11/02/24 Unknown History release Exam Airway Mallampati Class: I (edentulous) TM Dist: >3cm Neck ROM: Full Heart: rrr Lungs: cta Assessment and Plan Assessment Anesthesia Assessment: Anesthesia Plan Discussed Final Anesthetic Review NPO: Yes ASA Class: II Final Preanesthetic Review: No Changes in Pt Med Stat, Meds/Allgs Chart Reviewed and Consent Obtained/Reviewed Patient Risk: Low Procedure Risk: Low Anesthetic Plan Anesthetic Plan: GA Disposition: Standard PACU
[2024-11-02] VITALS (10 sets, daily range): BP systolic 90–111; BP diastolic 45–61; PULSE 52–62; RESP 15–16; TEMP 36.1–36.3; O2SAT 93–98; BMI 31.0
[2024-11-02] MEDS: Lactated Ringers 1,000 ML 100 ML IVCONT (11:10)
--- NOTE | 2024-11-02 12:49 | PM.OP ---
Brief Operative Note Date of Service: 11/02/24 Pre-op diagnosis: Right knee medial meniscus tear, right knee degenerative joint disease Post-op diagnosis: same Procedure: Right knee diagnostic arthroscopy with right knee arthroscopic partial medial meniscectomy, right knee arthroscopic chondroplasty of the undersurface of the patella as well as the medial femoral condyle Implants: none Surgeon: Jagdish Rogers MD Anesthesia: GLMA Was an Product Analyst used for this Procedure?: No Estimated blood loss (mL): 10 Pathology: none sent Condition: stable Disposition: PACU
--- NOTE | 2024-11-02 12:50 | W.PM.OPN ---
Operative Note Operative Note Date of Service: 11/02/24 Narrative: After the patient was identified as Judah Ventura and his right knee was initialed by myself they were brought to the operating room where general anesthesia was induced by the anesthesiologist in routine fashion. The patient was given 2 g of IV Ancef for infection prophylaxis. A formal time-out was completed. The patient's right lower extremity was prepped and draped in sterile fashion. Marcaine with epinephrine was injected into the planned incision sites as well as their right knee joint. A # 11 scalpel blade was used to make an anterolateral portal 1 cm proximal to the joint line and 1 cm lateral to the patellar tendon. Blunt trocar technique was used into the suprapatellar pouch with the knee in extension. Diagnostic arthroscopy showed multiple bands of thickened plica which would be excised at the end of the procedure. There were no loose bodies or abnormalities found in either the medial or lateral gutters. There were diffuse grades 1 and 2 degenerative changes of the undersurface of the patella as well as grade 1 degenerative changes of the trochlear groove. The patient's knee was flexed to 45 degrees and a valgus force was placed upon it. The medial compartment was entered. An anteromedial portal was made 1 cm proximal to the joint line and 1 cm medial to the patellar tendon. Probing of the medial meniscus showed a radial tear of the anterior horn. A partial medial meniscectomy was performed using the arthroscopic shaver. Following the partial meniscectomy the remainder of the meniscus tissue was stable. There were diffuse grades 1 and 2 degenerative changes of the medial femoral condyle as well as diffuse grade 1 degenerative changes of the medial tibial plateau. The articular surface of the medial femoral condyle was made smooth using the arthroscopic shaver. The articular surface of the medial tibial plateau was already smooth so no chondroplasty was indicated. The patient's knee was then placed into a neutral position. There was no injury to the anterior cruciate ligament. The patient's knee was then placed into the figure of 4 position and the lateral compartment was entered. There were minimal degenerative changes of the lateral femoral condyle and lateral tibial plateau. There was no evidence of lateral meniscus tearing. The patient's knee was once again brought into extension and the suprapatellar pouch was entered. The arthroscopic shaver and the ArthroCare Wand were used to excise the thickened bands of plica. The undersurface of the patella was then made smooth using the arthroscopic shaver. The articular surface of the trochlear groove was already smooth so no chondroplasty was indicated. The knee joint was irrigated and then drained. All arthroscopic instruments were removed. The 2 portals were closed with 3-0 nylon interrupted suture. The knee joint was injected with Marcaine. Dry sterile dressing and Umberto bandages were placed over the patient's knee. The patient was awoken and extubated in the operating room. They were transferred to the recovery room in stable condition.
[2024-11-02] MEDS: cefTRIAXone sodium 1 GM VIAL IVPUSH (13:06)
== END 2024-11-02 15:15 | disposition home or self-care (01) ==
PROVIDERS: PCP Internal Medicine; Visit Provider Orthopaedic Surgery
PROC: (CPT 29870; principal; 2024-11-02 12:00)
DX: S83.241A Other tear of medial meniscus, current injury, right knee, initial encounter (principal); M17.11 Unilateral primary osteoarthritis, right knee; M25.361 Other instability, right knee; M67.51 Plica syndrome, right knee; X50.1XXA Overexertion from prolonged static or awkward postures, initial encounter; Y93.9 Activity, unspecified; Y92.9 Unspecified place or not applicable; Y99.9 Unspecified external cause status; I87.2 Venous insufficiency (chronic) (peripheral); E78.00 Pure hypercholesterolemia, unspecified; E55.9 Vitamin D deficiency, unspecified; D51.0 Vitamin B12 deficiency anemia due to intrinsic factor deficiency; M16.11 Unilateral primary osteoarthritis, right hip; M51.369 Other intervertebral disc degeneration, lumbar region without mention of lumbar back pain or lower extremity pain; Z79.1 Long term (current) use of non-steroidal anti-inflammatories (NSAID); Z79.899 Other long term (current) drug therapy; Z98.890 Other specified postprocedural states; Z87.891 Personal history of nicotine dependence
CPT/HCPCS: 29881; J0131; J0171; J0690; J0696; J1100; J1885; J2003; J2250; J2371; J2405; J2704; J2795; J3010

== ENCOUNTER → 2024-11-02 09:17 | Outpatient (BNV) | payer OTHER, SELFPAY | PROVIDERS: PCP Internal Medicine; Visit Provider Orthopaedic Surgery | DX: S83.241A Other tear of medial meniscus, current injury, right knee, initial encounter (principal) | CPT/HCPCS: 29881 ==

== ENCOUNTER 2024-11-06 12:30 | Outpatient (AMB) | payer OTHER, SELFPAY ==
--- NOTE | 2024-11-06 12:37 | MHC.PC.OV ---
Vital Signs 11/06/24 12:38 Height 5 ft 7 in Weight 201 lb BMI 31.5 BP 120/68 Blood Pressure Location Lt brachial Position Sitting Intake Visit Reasons: Annual Exam - see comments Intake Note: Patient here for a physical exam Mechanical Systems Engineer Required: Yes Mechanical Systems Engineer Language: Ready Mix Truck Driver Name: Reyna Knutson MD Information Interpreted: non-clinical & clinical Accompanied by: Daughter Allergies No Known Allergies Allergy (Verified 11/06/24 12:52) Medication List - Last Reconciled 11/06/24 by Reyna Knutson MD atorvastatin 20 mg PO BEDTIME 90 days cholecalciferol (vitamin D3) 50 mcg PO DAILY 90 days lidocaine 4% (Aspercreme (lidocaine)) 2 patches topical DAILY PRN omeprazole 20 mg PO DAILY PRN oxycodone 5 mg PO Q6H PRN [Probiotic PO DAILY] [standard steel commode As directed] Transfer Bench As directed Tobacco use date assessed: 11/06/24 Fall risk assessment: No Falls in past year Last assessed Fall Risk: 11/06/24 Dental Screening Dental Screen Date: 11/06/24 Did you have a dental visit in the last 12 months?: No Did you have a dental problem in the last 6 months where you did not have access to dental care?: No Was dental information given to patient?: Patient has dentist HPI HPI Comments History of Present Illness Details The patient is a 73-year-old male presenting for an annual physical examination. During the conversation, there was a mention of a past colonoscopy done last year showing tubular adenoma. Additionally, the patient uses a cane for ambulation, but details on functionality, reasons, or history leading to this requirement were not discussed in depth. The conversation did not yield specific acute or chronic problems currently impacting the patient's health outside the scope of his general health maintenance. COUNTS INCLUDE 234 BEDS AT THE [facility] Medical History Osteoarthritis of right hip Venous (peripheral) insufficiency Right hip pain Lumbar degenerative disc disease GERD (gastroesophageal reflux disease) Pure hypercholesterolemia Pernicious anemia Hypovitaminosis D Surgical History (Updated 11/06/24 @ 13:04 by Reyna Knutson MD) H/O arthroscopy of right knee History of colonoscopy History of surgery on arm Family History Father No problems noted. Mother Diabetes Hypertension Maternal Grandmother Stroke Son No problems noted. Son No problems noted. Daughter No problems noted. Daughter No problems noted. Social History Housing: House Alcohol intake: former Patient Tobacco Use Status: Former Tobacco user Tobacco use type: Cigarette e-Cigarette/Vaping Use: Never Used Second Hand Smoke Exposure: No service: No Current occupational status: disabled Cognitive needs: Yes (cane) Hearing needs: No Vision needs: No Questionnaire PHQ-9 Over the last 2 weeks, how often have you been bothered by any of the following problems? 1. Little interest or pleasure in doing things: several days 2. Feeling down, depressed, or hopeless: not at all 3. Trouble falling or staying asleep, or sleeping too much: not at all 4. Feeling tired or having little energy: not at all 5. Poor appetite or overeating: not at all 6. Feeling bad about yourself - or that you are a failure or have let yourself or your family down: not at all 7. Trouble concentrating on things, such as reading the newspaper or watching television: several days 8. Moving or speaking so slowly that other people could have noticed. Or the opposite - being so fidgety or restless that you have been moving around a lot more than usual: not at all 9. Thoughts that you would be better off or of hurting yourself in some way: not at all Total score: 2 Depression Screening Interpretation: Negative Depression Screening Done: Yes 03174 - PHQ-9 Billing: Yes Source: Developed by Drs. Maycol Chambers, Waleska Obrien, Alfredo Unger and colleagues, with an educational geo from [employer]. Thrive Questionnaire Date Thrive assessed: 11/06/24 I am a: Patient What is your living situation today?: I have a steady place to live Within the past 12 months, did the food you bought not last and you didn't have the money to get more?: Never true Within the past 12 months, did you worry whether your food would run out before you got money to buy more?: Sometimes True Do you have trouble paying for medicines?: No Do you have trouble getting transportation to medical appointments?: No Do you have trouble paying your heating and electricity bill?: No Do you have trouble taking care of your child, family member or friend?: Yes Do you have trouble with day-to-day activities such as bathing, preparing meals, shopping, managing finances, etc.?: Yes Are you currently unemployed and looking for a job?: Yes Are you interested in more education?: No Please select the resources that you would like help with: None Currently or been in a relationship where the following occur: No concerns reported THRIVE Score: 1 AUDIT C Alcohol Use Questionnaire (AUDIT-C) 1. How often do you have a drink containing alcohol?: Never Total Score: 0 Score Reviewed/Action Taken: No FERNANDO-7 AMB Questionnaire FERNANDO-7 Date FERNANDO - 7 assessed: 11/06/24 Feeling nervous, anxious, or on edge: 0 = Not at all Not being able to stop or control worryin = Several days Worrying too much about different things: 1 = Several days Trouble relaxin = Not at all Being so restless that it is hard to sit still: 0 = Not at all Becoming easily annoyed or irritable: 0 = Not at all Feeling afraid as if something awful might happen: 0 = Not at all Total FERNANDO-7 score (0-4 normal; 5-9 mild; 10-14 moderate; 15-21 severe): 2 Source: Developed by Drs. Maycol Chambers, Waleska Obrien, Alfredo Unger and colleagues, with an educational geo from [employer]. FERNANDO-7 Assessment Billing FERNANDO-7 Assessment Tool: FERNANDO-7 Assessment 97767 Review of Systems Const All systems reviewed & are unremarkable except as noted in HPI and below Card Denies chest pain at rest, Denies chest pain with activity, Denies edema, Denies irregular heart rhythm, Denies claudication, Denies dyspnea, Denies dyspnea on exertion, Denies orthopnea, Denies paroxysmal nocturnal dyspnea and Denies slow heart rate Resp Denies cough, Denies dyspnea and Denies dyspnea on exertion GI Denies abdominal pain, Denies change in bowel habits, Denies excessive flatus, Denies nausea and Denies vomiting Physical exam (Primary Care) Vital Signs: Last Vital Signs BP 120/68 11/06/24 12:38 BMI result Body Mass Index 31.5 BMI Assessment/Plan discussion: High BMI High, discussed plan: lifestyle, weight reduction, dietary and physical activity Tobacco/Smoking Status: Tobacco use Status Tobacco use date assessed 11/06/24 11/06/24 12:47 Patient Tobacco Use Status Former Tobacco user 11/06/24 12:43 Tobacco use type Cigarette 11/06/24 12:43 e-Cigarette/Vaping Use Never Used 11/06/24 12:43 PHQ-9: PHQ-9 Score PHQ-9: Total score 2 11/06/24 12:53 Depression Screening Interpretation: Negative Thrive Assessment: Date of Thrive Assessment Date Thrive assessed 11/06/24 11/06/24 12:43 Currently or been in a relationship where the following occur: No concerns reported Const Limitations: ambulation with cane HENMT Head: Yes normal to inspection, Yes normocephalic and Yes atraumatic Ears: external ears normal Mouth: lip normal Eyes General: appearance normal, both eyes and all related structures Eyelids: Yes eyelids normal Conjunctivae: conjunctivae normal Neck Neck: Yes normal visual inspection and Yes supple Resp Effort & Inspection: normal respiratory effort Auscultation: clear to auscultation bilaterally Cardio Jugular venous distension: no JVD Rate: regular rate Rhythm: regular rhythm Heart sounds: S1 normal heart sound present and S2 normal heart sound present GI Inspection: Yes normal to inspection Palpation (GI): Soft to palpation and nontender Auscultation: normal bowel sounds Skin General skin exam: no rashes or lesions noted Neuro General: no focal motor deficits Extrem General: Yes full ROM Psych Appearance: grossly normal Office Procedures Flu Questionnaire Does the patient have a severe egg allergy?: No Immunizations Fluarix Triv [id number] (PF) 45 mcg (15 mcg x 3)/0.5 mL IM syringe Performing Provider: Reyna Knutson MD Performing Location: [facility] Documented (not given) by: MEME Velarde on 11/06/24 13:04 Reason Not Given: Patient Refused Coding Level of Care Code Est Pt Prev Care >65y(43717) Diagnoses Adult general medical exam Z00.00 Additional Codes PHQ-9 - 48258 - PHQ-9 Billing: Yes ([id number]) FERNANDO-7 Assessment Billing - FERNANDO-7 Assessment Tool: FERNANDO-7 Assessment 11635 ([id number]) Time Spent (min) 30 Assessment & Plan Assessment & Plan (1) Adult general medical exam: Code(s): Z00.00 - Encounter for general adult medical examination without abnormal findings Category: Medical Plan - Continue routine annual physical examination. - No specific diagnoses or management plans indicated from the conversation due to lack of detailed discussion. Patient was informed and verbally consented to the use of an ambient scribe for clinic note documentation during this visit. During the consultation, discussions were minimal, focusing on verifying the reason for the visit, which was the annual physical examination. No further elaboration on specific health issues, recommendations, or patient management pathways was provided in the discussion. Medications: New atorvastatin 40 mg PO BEDTIME 90 days 90 tabs 1RF E78.00 - Pure hypercholesterolemia, unspecified Discontinued atorvastatin Discontinued Reason: Patient Completed Course 20 mg PO BEDTIME 90 days 90 tabs 1RF E78.00 - Pure hypercholesterolemia, unspecified
[2024-11-06 12:38] VITALS: BP 120/68; BMI 31.5
--- OUTSIDE RECORDS SUMMARY | 2024-11-06 14:01 | XMS_ITS ---
Author Organization [facility] Address [address] [place] [address] Care Team Providers Care [place] Hand Name Role Phone Reyna Arriaza Primary Care Provider Unavailab Justin Arias Jr [phone] REASON FOR VISIT screening PROBLEMS Problem Type ICD Code Onset Dates Problem Status W/U Status Risk SNOMED Code Notes Problem Personal history of colonic polyps (Z86.010) Active confirmed History of polyp of colon (situation) ([id number]) Encounters Encounter Location Date Provider Diagnosis [facility] [address] [place] [address] [phone] 11/16/2023 Justin Turk Jr Encounter for screening colonoscopy Z12.11 ; Personal history of colonic polyps Z86.010 and Colon polyps K63.5 ASSESSMENTS Encounter Date Diagnosis Assessment Notes Treatment Notes Treatment Clinical Notes 11/16/2023 Encounter for screening colonoscopy (ICD-10 - Z12.11) 11/16/2023 Personal history of colonic polyps (ICD-10 - Z86.010) 11/16/2023 Colon polyps (ICD-10 - K63.5) PLAN OF TREATMENT No Information
--- OUTSIDE RECORDS SUMMARY | 2024-11-06 14:01 | XMS_ITS ---
Author Organization [facility] Address [address] [place] [address] Care Team Providers Care Incident Response Manager Name Role Phone Reyna Arriaza Primary Care Provider Unavailab Justin Arias Jr REASON FOR VISIT pathology Encounters Encounter Location Date Provider Diagnosis [facility] [address] [place] [address] 11/24/2023 Justin Turk Jr PLAN OF TREATMENT No Information
--- OUTSIDE RECORDS SUMMARY | 2024-11-06 14:02 | XMS_ITS ---
Author Name Diazdrew PACHECODiego Verona Jo Mcfarlane Address [address] [place] [address] Phone [phone] [facility] Care Team Providers Care Administrative Support Coordinator Name Role Phone Nikki Diaz Unavailable [phone] Unavailable Unavailable Unavailable Reason for Referral Not Available Allergies, adverse reactions, alerts No known allergies History of medication use Medication Class Instructions Start Date End Date Omeprazole 20 mg Cap delayed rel TAKE 1 CAPSULE BY MOUTH DAILY 2021-12-05 No Data Available Tylenol 8hr Arthritis Pain 650 mg Tab ER 2 tablets orally every 12h PRN pain 2022-08-06 No Data Available ThermaCare Muscle/Joint Miscellaneous 1 patch for 8 hrs prn pain 2022-08-20 No Data Avail able Icy Hot Extra Strength 10-30 % Crm 1 application BID PRN 2022-08-20 No Data Available VITAMIN D3 2000IU TABLETS TAKE 1 TABLET BY MOUTH DAILY FOR 90 DAYS 2023-04-26 No Data Available Atorvastatin Calcium 20 mg Tab TAKE 1 TABLET BY MOUTH AT BEDTIME 2023-05-24 No Data Available Problem List Problem Status Onset Date Resolved Date Morbid (severe) obesity due to excess caloriesBMI 34.0-34.9,adult Resolved 2022-08-09 2023-05-18 Dyslipidemia Active 2023-12-27 N/A Other problems related to [facility] facilities and other health care Active 2023-12-27 N/A Morbid obesity Active 2023-12-27 N/A GERD (gastroesophageal reflux disease) Active 07-09-04 N/A Arthritis Active 2022-08-06 N/A Non compliance with medical treatment Resolved 11-26-20 2024-10-30 Frozen joint Resolved 2022-08-06 2024-10-30 History of alcohol use disorder Resolved 2022-07-18 1 2024-10-30 Peripheral neuropathy, Neuro pathic pain, Poor circulation Active 2022-08-06 N/A Encounters Encounters Type Facility Date of Service Diagnosis/Co mplaint Medication List Documented (1159F) [facility] Medication List Documented (1159F) [facility] Medication List Documented (1159F) [facility] [place] Medication List Documented (1159F) [facility] [place] Medication List Documented (1159F) [facility] [place] Medication List Documented (1159F) [facility] [place] Unspecified osteoarthritis, unspecified siteNeuralgia and neuritis, unspecifiedPolyneuropathy, unspecifiedOth symptoms and signs involving the circ and resp systemsPatient's noncompliance with other medical treatment and regimen due to unspecified reasonAnkylosis, unspecified jointPersonal history of other specified conditions Estab. patient 20-29min; 1 stable chronic or 2 minor; add add modifier 95 for video, modifier 93 for phone [facility]2022 Unspecified osteoarthritis, unspecified siteNeuralgia and neuritis, unspecifiedPolyneuropathy, unspecifiedOth symptoms and signs involving the circ and resp systemsPatient's noncompliance with other medical treatment and regimen due to unspecified reasonAnkylosis, unspecified jointPersonal history of other specified conditionsMorbid (severe) obesity due to excess caloriesGastro-esophageal reflux disease without esophagitisBody mass index (bmi) 37.0-37.9, adult Estab. patient 20-29min; 1 stable chronic or 2 minor; add add modifier 95 for video, modifier 93 for phone [facility] Estab. patient 20-29min; 1 stable chronic or 2 minor; add add modifier 95 for video, modifier 93 for phone [facility] [place] Estab. patient 20-29min; 1 stable chronic or 2 minor; add add modifier 95 for video, modifier 93 for phone [facility] [place] 08/[place]/20[place] Estab. patient 20-29min; 1 stable chronic or 2 minor; add add modifier 95 for video, modifier 93 for phone [facility] Estab. patient 20-29min; 1 stable chronic or 2 minor; add add modifier 95 for video, modifier 93 for phone [facility] Estab. patient 20-29min; 1 stable chronic or 2 minor; add add modifier 95 for video, modifier 93 for phone [facility] Estab. patient 20-29min; 1 stable chronic or 2 minor; add add modifier 95 for video, modifier 93 for phone [facility] Estab. patient 30-39min; chronic exacerbation, 2 stable chronic or 1 acute illness add add modifier 95 for video, (do not use for phone, instead use [id number]) [facility] 05[place]2023 Unspecified osteoarthritis, unspecified siteNeuralgia and neuritis, unspecifiedPolyneuropathy, unspecifiedOth symptoms and signs involving the circ and resp systemsPatient's noncompliance with other medical treatment and regimen due to unspecified reasonAnkylosis, unspecified jointPersonal history of other specified conditionsGastro-esophageal reflux disease without esophagitisMorbid (severe) obesity due to excess calories Estab. patient 30-39min; chronic exacerbation, 2 stable chronic or 1 acute illness add add modifier 95 for video, (do not use for phone, instead use 61264-77) [facility] 05[place] Estab. patient 30-39min; chronic exacerbation, 2 stable chronic or 1 acute illness add add modifier 95 for video, (do not use for phone, instead use 60186-05) [facility] 05[place] Estab. patient 30-39min; chronic exacerbation, 2 stable chronic or 1 acute illness add add modifier 95 for video, (do not use for phone, instead use 53849-35) [facility] 05[place]2023 Estab. patient 30-39min; chronic exacerbation, 2 stable chronic or 1 acute illness add add modifier 95 for video, (do not use for phone, instead use 92983-95) [facility]23 Estab. patient 30-39min; chronic exacerbation, 2 stable chronic or 1 acute illness add add modifier 95 for video, (do not use for phone, instead use 93071-26) [facility] 05[place]23 Estab. patient 30-39min; chronic exacerbation, 2 stable chronic or 1 acute illness add add modifier 95 for video, (do not use for phone, instead use 38707-89) [facility] 05[place]/2023 Estab. patient 30-39min; chronic exacerbation, 2 stable chronic or 1 acute illness add add modifier 95 for video, (do not use for phone, instead use 78850-23) [facility] [place]2023 Estab. patient 30-39min; chronic exacerbation, 2 stable chronic or 1 acute illness add add modifier 95 for video, (do not use for phone, instead use 10765-72) [facility] 12[place]/2023 Morbid (severe) obesity due to excess caloriesBody mass index (BMI) 40.0-44.9, adultUnspecified osteoarthritis, unspecified siteNeuralgia and neuritis, unspecifiedPolyneuropathy, unspecifiedOth symptoms and signs involving the circ and resp systemsHyperlipidemia, unspecifiedGastro-esophageal reflux disease without esophagitisPatient's noncompliance with other medical treatment and regimen due to unspecified reasonAnkylosis, unspecified jointOther problems related to medical facilities and other health care Estab. patient 30-39min; chronic exacerbation, 2 stable chronic or 1 acute illness add add modifier 95 for video, (do not use for phone, instead use 38395-15) [facility] Estab. patient 30-39min; chronic exacerbation, 2 stable chronic or 1 acute illness add add modifier 95 for video, (do not use for phone, instead use 56948-19) [facility] [place] Estab. patient 30-39min; chronic exacerbation, 2 stable chronic or 1 acute illness add add modifier 95 for video, (do not use for phone, instead use 08515-26) [facility] [place]/2023 Estab. patient 30-39min; chronic exacerbation, 2 stable chronic or 1 acute illness add add modifier 95 for video, (do not use for phone, instead use 84059-78) [facility]/2023 Estab. patient 30-39min; chronic exacerbation, 2 stable chronic or 1 acute illness add add modifier 95 for video, (do not use for phone, instead use 39968-02) [facility] 12/[place]/2023 Estab. patient 30-39min; chronic exacerbation, 2 stable chronic or 1 acute illness add add modifier 95 for video, (do not use for phone, instead use 50533-12) [facility] 12/[place]/2023 Estab. patient 30-39min; chronic exacerbation, 2 stable chronic or 1 acute illness add add modifier 95 for video, (do not use for phone, instead use 33753-74) [facility]/2023 Estab. patient 30-39min; chronic exacerbation, 2 stable chronic or 1 acute illness add add modifier 95 for video, (do not use for phone, instead use 45574-73) [facility]/2023 Estab. patient 30-39min; chronic exacerbation, 2 stable chronic or 1 acute illness add add modifier 95 for video, (do not use for phone, instead use 10793-85) [facility]/2023 Estab. patient 20-29min; 1 stable chronic or 2 minor; add add modifier 95 for video, modifier 93 for phone [facility] [place] 10[place]30/2024 Unspecified osteoarthritis, unspecified siteNeuralgia and neuritis, unspecifiedPolyneuropathy, unspecifiedOth symptoms and signs involving the circ and resp systemsGastro-esophageal reflux disease without esophagitisHyperlipidemia, unspecifiedMorbid (severe) obesity due to excess caloriesOther problems related to medical facilities and other health care Estab. patient 20-29min; 1 stable chronic or 2 minor; add add modifier 95 for video, modifier 93 for phone [facility] 10[place] Estab. patient 20-29min; 1 stable chronic or 2 minor; add add modifier 95 for video, modifier 93 for phone [facility] 10/30/2024 Estab. patient 20-29min; 1 stable chronic or 2 minor; add add modifier 95 for video, modifier 93 for phone [facility] Estab. patient 20-29min; 1 stable chronic or 2 minor; add add modifier 95 for video, modifier 93 for phone [facility] 10/30/2024 Estab. patient 20-29min; 1 stable chronic or 2 minor; add add modifier 95 for video, modifier 93 for phone [facility] [place]30/[place] Estab. patient 20-29min; 1 stable chronic or 2 minor; add add modifier 95 for video, modifier 93 for phone [facility] 10/30/2024 Body mass index (BMI) 35.0-35.9, adult Vital Signs Date of Collection Vitals 2022-08-06 08:13:54 Height - 165.1 cmWei ght - 103.42 kgBody Mass Index (BMI) - 37.94 kg/m2 2022-08-20 07:17:14 Height - 165.1 cmWei ght - 103.42 kgBody Mass Index (BMI) - 37.94 kg/m2 2023-05-16 10:47:55 Height - 165.1 cmWei ght - 94.35 kgBody Mass Index (BMI) - 34.61 kg/m2Pain Scale - 9.0 {score} 2023-12-27 10:43:49 Height - 172.72 cmWe ight - 131.09 kgBody Mass Index (BMI) - 43.94 kg/m2BP Diastolic - 60.0 mm[Hg]BP Systolic - 98.0 mm[Hg]Pain Scale - 0.0 {score} 2024-10-30 12:01:17 Weight - 106.6 kgBod y Mass Index (BMI) - 35.73 kg/m2Pain Scale - 5.0 {score} Social History Social History Social History Observation Description Effec tive Time Current Smoking Status Former smoker 2024-10-18 1 Sex Male History of Procedures Procedures Service Procedure code Service date Servicing provider Phone# Medication List Documented (6129F) 1152F 2022-08-06 No Data Available No Data Saniya ilable Medication Review by prescribing provider or pharmacist documented (1160F) 1160F 2022-08-06 No Data Available No Data Saniya ilable Functional Status Assessed (1170F) 1170F 2022-08-06 No Data Available No Data Avail able Advance Care Directive Advance care planning discussion documented in the medical record (1158F) 1158F 2022-08-06 No Data Available No Data Availa ble BMI obtained (3008F) 3008F 2022-08-06 No Data Availab le No Data Available CODERS only for 2023 DOS 50519 2022-08-06 No Data Available No Data Availa ble Estab. patient 20-29min; 1 stable chronic or 2 minor; add add modifier 95 for video, modifier 93 for phone 10645 2022-08-20 No Data Available No Data Availa ble Advance Care Directive Advance care planning discussion documented in the medical record (1158F) 1158F 2022-08-20 No Data Available No Data Availa ble Functional Status Assessed (1170F) 1170F 2022-08-20 No Data Available No Data Avail able Medication Review by prescribing provider or pharmacist documented (1160F) 1160F 2022-08-20 No Data Available No Data Saniya ilable Medication List Documented (1159F) 1159F 2022-08-20 No Data Available No Data Saniya ilable Pain Assessment - NO pain documented (1126F) 1126F 2022-08-20 No Data Available No Data Availa ble Advance Care Directive Advance care planning discussion documented in the medical record (1158F) 1158F 2022-08-20 No Data Available No Data Availa ble BMI obtained (3008F) 3008F 2022-08-20 No Data Availab le No Data Available Estab. patient 30-39min; chronic exacerbation, 2 stable chronic or 1 acute illness add add modifier 95 for video, (do not use for phone, instead use 74538-50) 80232 2023-05-16 No Data Available No Data Availa ble Medication List Documented (1159F) 1159F 2023-05-16 No Data Available No Data Saniya ilable Medication Review by prescribing provider or pharmacist documented (1160F) 1160F 2023-05-16 No Data Available No Data Saniya ilable BMI obtained (3008F) 3008F 2023-05-16 No Data Availab le No Data Available Advance Care Directive Advance care planning discussion documented in the medical record (1158F) 1158F 2023-05-16 No Data Available No Data Availa ble Advance care planning discussed and documented ? advance care plan or surrogate decision-maker was documented in the medical record. (1123F) 1123F 2023-05-16 No Data Available No Data Availa ble Pain Assessment - Pain Documented (1125F) 1125F 2023-05-16 No Data Available No Data Availa ble Functional Status Assessed (1170F) 1170F 2023-05-16 No Data Available No Data Avail able Estab. patient 30-39min; chronic exacerbation, 2 stable chronic or 1 acute illness add add modifier 95 for video, (do not use for phone, instead use [id number]) 33188 2023-12-27 No Data Available No Data Availa ble Advance care planning discussed and documented ? advance care plan or surrogate decision-maker was documented in the medical record. (1123F) 1123F 2023-12-27 No Data Available No Data Availa ble Functional Status Assessed (1170F) 1170F 2023-12-27 No Data Available No Data Avail able Medication List Documented (1159F) 1159F 2023-12-27 No Data Available No Data Saniya ilable Medication Review by prescribing provider or pharmacist documented (1160F) 1160F 2023-12-27 No Data Available No Data Saniya ilable Pain Assessment - NO pain documented (1126F) 1126F 2023-12-27 No Data Available No Data Availa ble BMI obtained (3008F) 3008F 2023-12-27 No Data Availab le No Data Available Advance Care Directive Advance care planning discussion documented in the medical record (1158F) 1158F 2023-12-27 No Data Available No Data Availa ble SBP < 130 (3074F) 3074F 2023-12-27 No Data Available No Data Available DBP <80 (3078F) 3078F 2023-12-27 No Data Available No Data Available Estab. patient 20-29min; 1 stable chronic or 2 minor; add add modifier 95 for video, modifier 93 for phone 89765 2024-10-30 No Data Available No Data Availa ble Medication List Documented (1159F) 1159F 2024-10-30 No Data Available No Data Saniya ilable Medication Review by prescribing provider or pharmacist documented (1160F) 1160F 2024-10-30 No Data Available No Data Saniya ilable Functional Status Assessed (1170F) 1170F 2024-10-30 No Data Available No Data Avail able Pain Assessment - NO pain documented (1126F) 1126F 2024-10-30 No Data Available No Data Availa ble Advance Care Directive Advance care planning discussion documented in the medical record (1158F) 1158F 2024-10-30 No Data Available No Data Availa ble Advance care planning discussed and documented ? advance care plan or surrogate decision-maker was documented in the medical record. (1123F) 1123F 2024-10-30 No Data Available No Data Availa ble Functional Status Functional Category Effective Dates ADL: Bathing Independent , D ressing Needs Assistance , Eating Independent , Ambulation Needs Assistance , Transferring Needs Assistance and Toileting Independent 2024-10-30 IADL: Medication Needs Augustine tance , Meal Prep Needs Assistance , Shopping Needs Assistance , Driving or Public Transport Needs Assistance , Housework Needs Assistance , Finances Needs Assistance 2024-10-30 How many falls within the last 6 months? None 2024-10-30 Near falls within the last 6 months? Non e 2024-10-30 Do you feel unsteady on your feet? No 10-11-13 Do you worry about falling? No 2024-10-17 4 DME used with ambulation: [employer] 02-14-14 Social Supports - # of Inter actions with Friends/Family in a typical week: 2024-10-30 Mental Status Status Date Cognition Status: Oriented to Person, Pl derrick and Time 2024-10-30 Assessments Date of Service Assessments 2022-08-06 08:13:54 ArthritisPeripheral neuropathy, Neuropathic pain, Poor circulationNon compliance with medical treatmentFrozen jointHistory of alcohol use disorderBookeng FU appt on video call in 2 weeks 2022-08-20 07:17:14 Arthritis [M19.90]> on hip/pelvison prn tylenolPeripheral neuropathy, Neuropathic pain, Poor circulation [M79.2, G62.9, R09.89]> Some discoloration on both LEs, some varices seen, mild edema. Skin otherwise intact.Non compliance with medical treatment [Z91.199]> non-compliance w PT s/p left elbow surgery circa 2005Frozen joint [M24.60]> left arm elbow frozen - did not do PT after surgery 2005Encouraging pt to consult orthoHistory of alcohol use disorder [Z87.898]> stopped 2015BMI 35.0-35.9,adult [Z68.35]Morbid (severe) obesity due to excess calories [E66.01]> BMI-37.94Advising activity as tolerated, reduce starches (rice)GERD (gastroesophageal reflux disease) [K21.9]> OmeprazoletableTry not to go to bed w full stomach 2023-05-16 10:47:55 ArthritisPeripheral neuropathy, Neuropathic pain, Poor circulationNon compliance with medical treatmentFrozen jointHistory of alcohol use disorderMorbid (severe) obesity due to excess caloriesBMI 34.0-34.9,adultGERD (gastroesophageal reflux disease) 2023-12-27 10:43:49 ArthritisPeripheral neuropathy, Neuropathic pain, Poor circulationNon compliance with medical treatmentFrozen jointHistory of alcohol use disorderGERD (gastroesophageal reflux disease)DyslipidemiaMorbid obesityOther problems related to medical facilities and other health care 2024-10-30 12:01:17 ArthritisPeripheral neuropathy, Neuropathic pain, Poor circulationGERD (gastroesophageal reflux disease)DyslipidemiaMorbid obesityOther problems related to medical facilities and other health care Plan of Care Date of Service Plans 2022-08-06 08:13:54 Medication Review by prescribing provider or pharmacist documented (1160F)Medication List Documented (1159F)Functional Status Assessed (1170F)Advance Care Directive Advance care planning discussion documented in the medical record (1158F)BMI obtained (3008F)Televideo new patient,40-59min; chronic exacerbation, 2 stable chronic or 1 acute illness add modifier 95Continue to see PCP. Follow-up with [facility] as needed for any acute or disease education needs that may arise.on hip/pelvison prn tylenoldeferring until we can see on video call.non-compliance w PT s/p left elbow surgery circa 2005left arm elbow frozen - did not do PT after surgery 2005stopped 20142022-08-20 07:17:14 As above. Daina cons ider seeing ortho for frozen arm.Activity, diet. FU 3-4 wks or PRNTelevideo 20-29min; 1 stable chronic or 2 minor; add modifier 95Continue to see PCP. Follow-up with [facility] as needed for any acute or disease education needs that may arise 09/05. 2023-05-16 10:47:55 Medication Review by prescribing provider or pharmacist documented (1160F)Medication List Documented (1159F)Functional Status Assessed (1170F)Advance Care Directive Advance care planning discussion documented in the medical record (1158F)BMI obtained (3008F)Televideo 30-39min; chronic exacerbation, 2 stable chronic or 1 acute illness add modifier 95Advance care planning discussed and documented ? advance care plan or surrogate decision-maker was documented in the medical record. (1123F)Pain Assessment - Pain Documented (1125F)Continue to see PCP. Follow-up with [facility] as needed for any acute or disease education needs that may arise.on hip/pelvison prn tylenolECCA Update 05/16/23:Reports bilateral knee pain, hips and low back. Follows up with PCP, last visit 03/27/23, ordered labs and Knee XRays. Referred to Ortho due to knee pain, has appt on 05/31/23 for evaluation.Reports pain is well controlled by taking Tylenol and using Ice hot. Lower extremities visualized during video encounter. No swelling or skin ulcers noted. Taking:Tylenol 8hr Arthritis Pain 650 mg Tab ER 2 tablets orally every 12h PRN painDenies any acute complaint.Continue treatment as prescribed, follow up as instructed.Contact CB 09/05 as needed.Some discoloration on both LEs, some varices seen, mild edema. Skin otherwise intact.[facility] Update 05/16/23:Reports some tingling to legs bilaterally.Denies any swelling or skin ulcers (see pictures attached to visit note). Lower extremities visualized during video encounter. No swelling or skin ulcers noted. Evaluated by vascular specialist DR. Larson. Last visit 1 year ago.Advised to schedule abel for follow up.Contact CB 24/7 as needed.non-compliance w PT s/p left elbow surgery circa 2004[facility] Update 05/16/23:Patient report he did not complete PT after surgery and cannot fully extend left elbow. Denies any acute complaint.left arm elbow frozen - did not do PT after surgery 2004Encouraging pt to consult orthoECCA Update 05/16/23:Patient report he did not complete PT after surgery and cannot fully extend left elbow. Denies any acute complaint.Has appt with Ortho on 05/31/23.Advised to follow up as scheduled. Contact CB 24/7 as needed.stopped 2014[facility] Update 05/16/23:Denies any alcohol consumption since 2014.BMI-37.94Advising activity as tolerated, reduce starches (rice)[facility] Update 05/16/23:BMI decreased to 34.61.Advised to continue weight management by diet modification and staying physically active as tolerated. Low fat, low carb, low sugar diet.Follow up with PCP. Contact CB 24/7 as needed.OmeprazoletableTry not to go to bed w full stomachECCA Update 05/16/23:Follows up with PCP, last appt 03/2023.Denies any acute complaint.Taking: Omeprazole 20 mg Cap delayed rel TAKE 1 CAPSULE BY MOUTH DAILYDoing well on current treatment.Denies any acute complaint.Continue treatment as prescribed, follow up as instructed.Contact CB 24/7 as needed. 2023-12-27 10:43:49 Medication Review by prescribing provider or pharmacist documented (1160F)Medication List Documented (1159F)Functional Status Assessed (1170F)Advance Care Directive Advance care planning discussion documented in the medical record (1158F)BMI obtained (3008F)SBP < 130 (3074F)DBP <80 (3078F)Televideo 30-39min; chronic exacerbation, 2 stable chronic or 1 acute illness add modifier 95Advance care planning discussed and documented ? advance care plan or surrogate decision-maker was documented in the medical record. (1123F)Pain Assessment - NO pain documented (1126F)Continue to see PCP. Follow-up with [facility] as needed for any acute or disease education needs that may arise.on hip/pelvison prn tylenolECCA Update 05/16/23:Reports bilateral knee pain, hips and low back. Follows up with PCP, last visit 03/27/23, ordered labs and Knee XRays. Referred to Ortho due to knee pain, has appt on 05/31/23 for evaluation.Reports pain is well controlled by taking Tylenol and using Ice hot. Lower extremities visualized during video encounter. No swelling or skin ulcers noted. Taking:Tylenol 8hr Arthritis Pain 650 mg Tab ER 2 tablets orally every 12h PRN painDenies any acute complaint.Continue treatment as prescribed, follow up as instructed.Contact CB 24/7 as needed.12/27/2023:Follows up with PCP.Takes Tylenol as needed. Denies any pain at this time. Denies any complaint. Uses cane or walker to ambulate.Some discoloration on both LEs, some varices seen, mild edema. Skin otherwise intact.ECCA Update 05/16/23:Reports some tingling to legs bilaterally.Denies any swelling or skin ulcers (see pictures attached to visit note). Lower extremities visualized during video encounter. No swelling or skin ulcers noted. Evaluated by vascular specialist DR. Larson. Last visit 1 year ago.Advised to schedule abel for follow up.Contact CB 24/7 as needed. 12/27/2023:Follows up with PCP. Reports improvement.Not taking any medications.Denies any skin ulcers. Uses cane or walker to ambulate.non-compliance w PT s/p left elbow surgery circa 2004ECCA Update 05/16/23:Patient report he did not complete PT after surgery and cannot fully extend left elbow. Denies any acute complaint.left arm elbow frozen - did not do PT after surgery 2004Encouraging pt to consult orthoECCA Update 05/16/23:Patient report he did not complete PT after surgery and cannot fully extend left elbow. Denies any acute complaint.Has appt with Ortho on 05/31/23.Advised to follow up as scheduled. Contact CB 24/7 as needed. 12/27/2023:Follows up with PCP.Takes Tylenol as needed. Denies any complaint.stopped 2014ECCA Update 05/16/23:Denies any alcohol consumption since 2014. 12/27/2023: Denies alcohol intake.OmeprazoletableTry not to go to bed w full stomachECCA Update 05/16/23:Follows up with PCP, last appt 03/2023.Denies any acute complaint.Taking: Omeprazole 20 mg Cap delayed rel TAKE 1 CAPSULE BY MOUTH DAILYDoing well on current treatment.Denies any acute complaint.Continue treatment as prescribed, follow up as instructed.Contact CB 24/7 as needed.12/27/2023:Follows up with PCP.Stable.Continues Omeprazole.Denies any complaints.Follows up with PCP.Taking: Atorvastatin Calcium 20 mg Tab TAKE 1 TAB QDAdvised to follow low fat, low carb, heart healthy diet.Continue treatment as prescribed. Follow up with PCP as scheduled.Contact CB 24/7 as needed.BMI: 43.94Weight management by diet modification discussed with patient.Low fat, low carb, low sugar diet.Stay physically active as tolerated.Follow up with PCP. Contact CB 24/7 as needed.CONTINGENCY PLANMember to call for the following symptoms: Fall / Dizziness upon standing / Feeling weak Planned intervention: Encourage extra fluid intake / Assess for change in mental status and provide reassurance if none (patient's Baseline is: No deficits) / Review importance of sitting for two to three minutes prior to standing after laying down.Assess current symptoms and treat accordingly. 2024-10-30 12:01:17 Functional Status As sessed (1170F)Advance Care Directive Advance care planning discussion documented in the medical record (1158F)Advance care planning discussed and documented ? advance care plan or surrogate decision-maker was documented in the medical record. (1123F)Medication List Documented (1159F)Medication Review by prescribing provider or pharmacist documented (1160F)Estab. patient 20-29min; 1 stable chronic or 2 minor; add add modifier 95 for video, modifier 93 for phoneContinue to see PCP. Follow-up with Nahum as needed for any acute or disease education needs that may arise.on hip/pelvison prn tylenolPatient has severe pain in his right knee. He will be having surgery soon.Some discoloration on both LEs, some varices seen, mild edema. Skin otherwise intact.Reports some tingling to legs bilaterally.Denies any swelling or skin ulcers (see pictures attached to visit note). Lower extremities visualized during video encounter. No swelling or skin ulcers noted. Evaluated by vascular specialist DR. Larson. Last visit 1 year ago.OmeprazoleLimit high fat foods, deep fried foods, spicy foods. Also avoid eating and then lying down flat. Try to stay up 2-3 hours after eating minimum to avoid the risk of indigestion.Follows up with PCP.Taking: Atorvastatin Calcium 20 mg Tab TAKE 1 TAB QDAdvised to follow low fat, low carb, heart healthy diet.Continue treatment as prescribed. Follow up with PCP as scheduled.Contact CB 24/7 as needed.BMI:35.73Weight management by diet modification discussed with patient.Low fat, low carb, low sugar diet.Stay physically active as tolerated.Follow up with PCP. Contact CB 24/7 as needed.CONTINGENCY PLANMember to call for the following symptoms: Fall / Dizziness upon standing / Feeling weak Planned intervention: Encourage extra fluid intake / Assess for change in mental status and provide reassurance if none (patient's Baseline is: No deficits) / Review importance of sitting for two to three minutes prior to standing after laying down.Assess current symptoms and treat accordingly. Goals Date Goal 2022-08-06 Remember to 2022-08-06 Call me if 2022-08-06 Keep it up 2023-05-16 Remember to keep all appointments with your PCP and specialists. Call 24/7 if you have questions or concerns. Discussed how to contact [facility] via phone or tablet. 24/7 phone number provided. 2023-12-27 Remember to keep all appointments with your PCP and specialists. Call 24/7 if you have questions or concerns. Discussed how to contact [facility] via phone or tablet. 24/7 phone number provided. 2024-10-30 Continue taking medi cations as directed and keep all follow up appointments with established PCP and Specialist. Health Concerns Date Concern 2024-10-[address] audio/video. Informed verbal consent was obtained from this patient to communicate and provide care using virtual and other telecommunications tools. This patient has been explained the risks, if any, related to the encounter. I explained that care provided through video or audio communication cannot replace the need for physical examination or an in-person visit for some disorders or urgent problems. Patient/Guardian agreed to visit via telehealth. Today, patient has chief complaint of: follow up care and comprehensive review. 2024-10-30 Most recent hospital stay(s) or ER visit(s) and precipitating factors: Denies Er or hospital visits
--- OUTSIDE RECORDS SUMMARY | 2024-11-06 14:02 | XMS_ITS | Patient Health Record ---
Author Organization [facility] Address [address] [place] [address] Care Team Providers Care Senior Stack Engineer Name Role Phone Reyna Arriaza Primary Care Provider Justin Thompson Jr Unavailable ALLERGIES No Known Allergies RESULTS Component Value Reference Range Notes Pathology Reviewed date:11/24/2023 11:29:49 AM Interpretation: Performing Lab:[facility], [address] [place] [id number] Notes/Report: REASON FOR REFERRAL No Information MEDICATIONS Medication SIG (Take, Route, Frequency, Duration) Notes Start Date End Date Status MiraLax (colon prep) 17 GM/SCOOP mixed with Gatorade or Crystal Light Orally begin at 5:00 p.m. the day before the procedure for 1 day 07/14/2023 Active Dulcolax (colon prep) 5 MG take at 3:00 p.m and 7:00p.m. Orally two tablets twice a day for one day for 1 day 08/31/2023 Active Vitamin D3 50 MCG (2000 UT) TAKE 1 TABLET BY MOUTH DAILY FOR 90 DAYS Oral for 90 Active Omeprazole 20 MG TAKE 1 CAPSULE BY MOUTH DAILY Oral for 90 Active MiraLax (colon prep) 8.3 ounce ((238) grams mixed with Gatorade or Crystal Light orally begin at 5:00 p.m. the day before the procedure for 1 day 08/31/2023 Active I19-Eqgfbj monthly Active Vitamin D Active Atorvastatin Calcium 20 MG TAKE 1 TABLET BY MOUTH AT BEDTIME Oral for 90 E7800,Unavailab le Active Colyte with Flavor Packs 240 GM As directed Orally Over the specified time. for 1 day(s) 11/27/2015 Active IMMUNIZATIONS Vaccine Route Administration Date Status Comme nts Influenza Unknown 07/06/2022 Administered SOCIAL HISTORY Sex Assigned At : Social History Observation Description Sex Assigned At Unknown PROBLEMS Problem Type ICD Code Onset Dates Problem Status W/U Status Risk SNOMED Code Notes Problem Colon cancer screening (Z12.11) Active confirmed 934550870 Problem Personal history of colonic polyps (Z86.010) Active confirmed History of polyp of colon (situation) (329439324) Problem Gastroesophageal reflux disease, unspecified whether esophagitis present (K21.9) Active confirmed [id number] Encounters Encounter Location Date Provider Diagnosis [facility] [place] Outpatient [address] [place], [place] [id number] 11/16/2023 Justin Turk Jr Encounter for screening colonoscopy Z12.11 ; Personal history of colonic polyps Z86.010 and Colon polyps K63.5 [facility] [address] [place] [address] 11/24/2023 Justin Turk Jr ASSESSMENTS Encounter Date Diagnosis Assessment Notes Treatment Notes Treatment Clinical Notes 11/16/2023 Encounter for screening colonoscopy (ICD-10 - Z12.11) 11/16/2023 Personal history of colonic polyps (ICD-10 - Z86.010) 11/16/2023 Colon polyps (ICD-10 - K63.5) PLAN OF TREATMENT Future Test Test Name Order Date COLONOSCOPY 11/27/2015 COLONOSCOPY 07/14/2023 Insurance Providers Payer Name Payer Address Payer Phone Subscriber Number Group Number Insured Name Patient Relationship to Insured Coverage Start Date Coverage End Date [facility] [id number] [address] [address] [place] [address] [id number] YASMIN GARVEY Self - patient is the insured [id number] [address] [place] [address] [id number] YASMIN GARVEY Self - patient is the insured MEDICAL (GENERAL) HISTORY Medical History History ICD Code Back pain Degenerative joint disease B12 deficiency Hyperlipidemia Colonoscopy 03/01, tubular adenoma, five- year followup Gastroesophageal reflux disease Surgical History Surgery Date(Month/Year) Arm and head injury left side
--- OUTSIDE RECORDS SUMMARY | 2024-11-06 14:02 | XMS_ITS ---
Author Organization [facility] Address [address] [place] [address] Care Team Providers Care Order Picker Name Role Phone Reyna Arriaza Primary Care Provider Unavailab Justin Arias Jr [phone] REASON FOR VISIT colonoscopy n/s - FYI Encounters Encounter Location Date Provider Diagnosis [facility] [address] [place] [address] 10/26/2023 Justin Turk Jr PLAN OF TREATMENT No Information
== END 2024-11-06 13:04 | disposition home or self-care (01) ==
PROVIDERS: PCP Internal Medicine; Visit Provider Internal Medicine
DX: Z00.00 Encounter for general adult medical examination without abnormal findings (principal); Z23 Encounter for immunization

== ENCOUNTER → 2024-11-06 12:30 | Outpatient (BNVA) | payer OTHER, SELFPAY | PROVIDERS: PCP Internal Medicine; Visit Provider Internal Medicine | DX: Z00.00 Encounter for general adult medical examination without abnormal findings (principal); E78.00 Pure hypercholesterolemia, unspecified | CPT/HCPCS: 90471; 96127; 99397 ==

== ENCOUNTER 2024-11-16 13:40 | Outpatient (AMB) | payer OTHER, SELFPAY ==
[2024-11-16 13:47] VITALS: BMI 31.5
--- NOTE | 2024-11-16 13:47 | MHC.OFFVIS ---
Vital Signs 11/16/24 13:47 Height 5 ft 7 in Weight 201 lb BMI 31.5 Intake Visit Reasons: PO- RT knee 11/02/24 Intake Note: Elliot is an 84 year old male who presents today for a post operative Rt hip IMN, DOS 10/28/24 NE. Patient reports he is doing well and has mild pain and discomfort. Channel Program Manager Required: Yes Channel Program Manager Services: Channel Program Manager Present Channel Program Manager Name: Glenn ID#[id number] Allergies No Known Allergies Allergy (Verified 11/16/24 13:52) Medication List - Last Reconciled 11/16/24 by Nicky Mccarthy PA-C atorvastatin 40 mg PO BEDTIME 90 days cholecalciferol (vitamin D3) 50 mcg PO DAILY 90 days lidocaine 4% (Aspercreme (lidocaine)) 2 patches topical DAILY PRN omeprazole 20 mg PO DAILY PRN oxycodone 5 mg PO Q6H PRN [Probiotic PO DAILY] [standard steel commode As directed] Transfer Bench As directed HPI HPI PO- RT knee 11/02/24 DR: Details: 73-year-old gentleman presents to the office today status post right knee arthroscopy with Dr. Rogers on 11/02/2024. He states he is doing well with no concerns today. [facility] Medical History Osteoarthritis of right hip Venous (peripheral) insufficiency Right hip pain Lumbar degenerative disc disease GERD (gastroesophageal reflux disease) Pure hypercholesterolemia Pernicious anemia Hypovitaminosis D Surgical History H/O arthroscopy of right knee History of colonoscopy History of surgery on arm Family History Father No problems noted. Mother Diabetes Hypertension Maternal Grandmother Stroke Son No problems noted. Son No problems noted. Daughter No problems noted. Daughter No problems noted. Social History Housing: House Alcohol intake: former Patient Tobacco Use Status: Former Tobacco user Tobacco use type: Cigarette e-Cigarette/Vaping Use: Never Used Second Hand Smoke Exposure: No service: No Current occupational status: disabled Cognitive needs: Yes (cane) Hearing needs: No Vision needs: No Review of Systems Const All systems reviewed & are unremarkable except as noted in HPI and below Physical Exam Vital Signs: BMI result Body Mass Index 31.5 Extrem Other: Right knee incision clean dry and intact no erythema no joint effusion. Range of motion 0-115. Calf supple nontender neurovascularly intact. Results Reviewed Results Reviewed: Brief Operative Note Date of Service: 11/02/24 Pre-op diagnosis: Right knee medial meniscus tear, right knee degenerative joint disease Post-op diagnosis: same Procedure: Right knee diagnostic arthroscopy with right knee arthroscopic partial medial meniscectomy, right knee arthroscopic chondroplasty of the undersurface of the patella as well as the medial femoral condyle Implants: none Surgeon: Jagdish Rogers MD Assessment & Plan Assessment & Plan (1) Tear of medial meniscus of right knee: Code(s): S83.241A - Other tear of medial meniscus, current injury, right knee, initial encounter Category: Medical Plan: Sutures removed Steri-Strips applied. I stressed the importance of avoiding deep twisting pivoting or impact activities over the next 4-6 weeks. I did recommend a course of physical therapy to maintain his motion and work on strengthening exercises. He will see us back in [address] Rogers, sooner if needed. Coding Level of Care Code Global (06565) Diagnoses Tear of medial meniscus of right knee S83.241A
== END 2024-11-16 14:15 | disposition home or self-care (01) ==
PROVIDERS: PCP Internal Medicine; Visit Provider Physician Assistant
DX: S83.241A Other tear of medial meniscus, current injury, right knee, initial encounter (principal)
CPT/HCPCS: 99024

== ENCOUNTER → 2024-11-16 13:40 | Outpatient (BNVA) | payer OTHER, SELFPAY | PROVIDERS: PCP Internal Medicine; Visit Provider Physician Assistant | DX: Z47.89 Encounter for other orthopedic aftercare (principal); S83.241D Other tear of medial meniscus, current injury, right knee, subsequent encounter; Z98.890 Other specified postprocedural states | CPT/HCPCS: 99212 ==

== ENCOUNTER 2024-12-26 09:45 | Outpatient (RCR) | payer OTHER, SELFPAY ==
--- NOTE | 2024-11-26 11:53 | MHC.PT.EP ---
[facility] [place] Office [place] Office [place] Office [address] Hudson Zhang [address] [phone] F: [phone] F: [phone] F: [phone] F: [phone] Physical Therapy Plan of Care Date of Evaluation: 11/26/24 Date of Surgery: 11/02/24 Diagnosis: Other tear of medial meniscus Tear of medial meniscus of R knee Assessment: Judah is a 74 year old male who is referred to PT for Other tear of medial meniscus, Tear of medial meniscus of R knee . He is 3.5 weeks s/p R knee arthroscopic partial medial menisectomy, right knee arthroscopic chondroplasty of the undersurface of the patella as well as the medial femoral condyle . On PT examination he presented with 0/10 pain, no TTP, decreased R Knee ROM, decreased R LE, altered posture, balance and gait. He lives alone and is independent with most self care activities. His daughter assists him with IADLS. He would benefit from skilled PT to address the aforementioned impairments and improve tolerance to functional activities. Frequency and Duration: The patient will be seen 2/week for 4 weeks Short Term Goals: 1. Pt will demonstrate initiation of HEP in 2 weeks. 2. Pt will be able to move his knee through full plane of motion which will enable him to perform sit to stand without compensations in 3 weeks Garment Looper Goals: 1. Pt will demonstrate an increase in muscle strength by 1 grade which will enable him to ambulate and negotiate stairs without AD in 5 weeks 2. Pt will be independent with all HEP for symptom management and maintenance following d/c in 5 weeks Treatment Plan: Modalities to reduce pain, spasms and effusion. Manual therapy to restore motion and function. Therapeutic exercise to improve strength and flexibility. Neuromuscular re-education for posture and balance. Therapeutic activities to return to functional activities of daily living. Electronically signed by: Ermelinda Suarez PT DPT Please sign and return to therapist. Thank you for your referral.
--- NOTE | 2025-02-19 10:20 | MHC.PT.DC ---
[facility] [place] Office [place] Office [place] Office [address] Hudson Zhang [address] [facility] [phone] F: [phone] F: [phone] F: [phone] F: [phone] Physical Therapy Discharge Report Diagnosis: Other tear of medial meniscus Tear of medial meniscus of R knee Date of Surgery: 11/02/24 Date of Evaluation: 11/26/24 Date of Discharge: 02/19/25 Treatments to Date: 6 Cancellations to Date: 0 No Shows to Date: 0 Discharge Status: Discharge Summary: Judah attended 6 PT visits and then did not make any more appointments in the last 2 months. He is therefore being d/c from PT. Electronically signed by: Ermelinda Suarez PT, DPT Please sign and return to therapist. Thank you for your referral.
== END 2025-02-19 10:20 | disposition home or self-care (01) ==
LOC: HO.PT 09:45
PROVIDERS: PCP Internal Medicine; Visit Provider Physician Assistant
DX: S83.241D Other tear of medial meniscus, current injury, right knee, subsequent encounter (principal)
CPT/HCPCS: 97110; 97161; 97530

== ENCOUNTER 2024-12-27 09:59 | Outpatient (AMB) | payer OTHER, SELFPAY ==
--- NOTE | 2024-12-27 10:02 | MHC.OFFVIS ---
Intake Visit Reasons: [employer] referral for PVD Intake Note: New patient presents for PVD. Patient had a nurse from [facility] visit him at home who states he might have PVD. Accompanied by: Daughter Allergies No Known Allergies Allergy (Verified 12/27/24 10:04) HPI HPI [employer] referral for PVD: Details: Judah, A pleasant 74-year-old Bulgarian-speaking only male patient, is presenting today on referral from PCP for question of peripheral arterial disease. He presents after being screened through his insurance company at home with findings of a decreased NESHA in the left lower extremity. He remains asymptomatic. He denies any concerns today. He does have a history of venous procedures with Dr. Larson, approximately a year ago, in bilateral lower extremities. He was having complaints of numbness at that time, he states the numbness has gone away and he does feel a little bit better. He is a nonsmoker and not a diabetic. [facility] Medical History (Updated 12/19/24 @ 15:30 by Reyna Knutson MD) Osteoarthritis of right hip Venous (peripheral) insufficiency Right hip pain Lumbar degenerative disc disease GERD (gastroesophageal reflux disease) Pure hypercholesterolemia Pernicious anemia Hypovitaminosis D Surgical History H/O arthroscopy of right knee History of colonoscopy History of surgery on arm Family History Father No problems noted. Mother Diabetes Hypertension Maternal Grandmother Stroke Son No problems noted. Son No problems noted. Daughter No problems noted. Daughter No problems noted. Social History Housing: House Alcohol intake: former Patient Tobacco Use Status: Former Tobacco user Tobacco use type: Cigarette e-Cigarette/Vaping Use: Never Used Second Hand Smoke Exposure: No service: No Current occupational status: disabled Cognitive needs: Yes (cane) Hearing needs: No Vision needs: No Review of Systems Const Reports as per HPI and Denies weakness ENT Reports Normal hearing present and Denies dizziness Card Reports as per HPI, Denies chest pain, Denies chest pain at rest, Denies chest pain with activity, Denies dyspnea and Denies dyspnea on exertion Resp Reports as per HPI, Denies cough, Denies dyspnea and Denies dyspnea on exertion GI Reports as per HPI, Denies abdominal pain, Denies nausea and Denies vomiting Musc Denies numbness Skin/Breast Reports as per HPI, Denies erythema and Denies wounds Neuro Reports Normal hearing present, Denies dizziness, Denies numbness, Denies Sensory deficit (Neuro) and Denies weakness Psych Reports no additional complaints Endo Reports no additional complaints Physical Exam Const General: healthy appearing and no acute distress Orientation/consciousness: patient oriented x3 HEENT Head: Yes normal to inspection Ears: hearing grossly normal bilaterally Mouth: Normal oral and palatal mucosa present Resp Effort & Inspection: normal respiratory effort and able to speak in complete sentences Auscultation: clear to auscultation bilaterally Cardio Jugular venous distension: no JVD Rate: regular rate Rhythm: regular rhythm Heart sounds: S1 normal heart sound present and S2 normal heart sound present Bruits: no abdominal aortic bruits, no carotid bruits, no femoral bruits and no renal bruits Peripheral pulses: Peripheral pulses 2+ throughout GI Inspection: Yes normal to inspection Palpation (GI): No Abdominal aortic bruit present Skin General skin exam: no rashes or lesions noted Wounds: no wounds Hair: normal Neuro General: patient oriented x3 Cranial nerves: Yes Normal hearing present Cognition (Neuro): normal cognition Gait exam (Neuro): Normal gait present Motor exam (neuro): 5/5 motor strength present throughout Sensory Exam: No Sensory deficit (Neuro) Extrem Other: Bilateral lower extremities: strong and palpable DP and PT pulses. Feet are warm to the touch. No discoloration noted. Trace peripheral edema noted. General: Yes normal to inspection, Yes full ROM, Yes capillary refill normal and Yes normal gait Assessment & Plan Assessment & Plan (1) Peripheral arterial disease: Code(s): I73.9 - Peripheral vascular disease, unspecified Category: Medical Plan: Judah is presenting today on a referral from his PCP for question of peripheral artery disease. He was seen at home through his insurance for screening and it was noted that he had a left NESHA of 0.72 and right of 1.09. Due to this, his primary care we wanted him to be seen by vascular surgery. The patient denies any claudication issues. He has no concerns today. Due to the findings, we will be ordering an arterial duplex with ABIs. We discussed that if he experiences any claudication issues, to reach out to us. We will follow up with him after the US. If there are any questions or concerns, please do not hesitate to reach out to us. Orders: Orders US NESHA complete 1 Week I73.9 - Peripheral vascular disease, unspecified Coding Level of Care Code New Pt Level 4 (71316) Diagnoses Peripheral arterial disease I73.9
--- OUTSIDE RECORDS SUMMARY | 2024-12-27 12:22 | XMS_ITS ---
Author Name Diazdrew PACHECODiego Verona Jo Mcfarlane Address [address] [place] [address] Phone [phone] [facility] Care Team Providers Care Hospital Aide Name Role Phone Nikki Diaz Unavailable [phone] Reason for Referral Not Available Allergies, adverse [...] Active 2023-12-27 N/A Other problems related to [facility] facilities and other health care Active 2023-12-27 [...] Service Diagnosis/Co mplaint Medication List Documented (1159F) [facility] Medication List Documented (1159F) [facility] Medication List Documented (1159F) [facility] Medication List Documented (1159F) [facility] Medication List Documented (1159F) [facility] Medication List Documented (1159F) [facility]20[place] Unspecified osteoarthritis, unspecified siteNeuralgia and neuritis, unspecifiedPolyneuropathy, unspecifiedOth symptoms and signs involving the circ and resp systemsPatient's noncompliance with other medical treatment and regimen due to unspecified reasonAnkylosis, unspecified jointPersonal history of other specified conditions Estab. patient 20-29min; 1 stable chronic or 2 minor; add add modifier 95 for video, modifier 93 for phone [facility]20[place] Unspecified osteoarthritis, unspecified siteNeuralgia and [...] 95 for video, modifier 93 for phone [facility] Estab. patient 20-29min; 1 stable chronic or 2 minor; add add modifier 95 for video, modifier 93 for phone [facility] Estab. patient 20-29min; 1 stable chronic or 2 minor; add add modifier 95 for video, modifier 93 for phone [facility] 08[place]20[place] Estab. patient 20-29min; 1 stable chronic or 2 minor; add add modifier 95 for video, modifier 93 for phone [facility] ([place]) 08/20/2022 Estab. patient 20-29min; 1 stable chronic or 2 minor; add add modifier 95 for video, modifier 93 for phone [facility] 08[place]20[place] Estab. patient 20-29min; 1 stable chronic or 2 minor; add add modifier 95 for video, modifier 93 for phone [facility] 08/[place]/2022 Estab. patient 20-29min; 1 stable chronic or 2 minor; add add modifier 95 for video, modifier 93 for phone [facility] [place] 08/[place]2022 Estab. patient 30-39min; chronic exacerbation, 2 stable chronic or 1 acute illness add add modifier 95 for video, (do not use for phone, instead use 76161-45) [facility] [place] 05/16/2023 Unspecified osteoarthritis, unspecified siteNeuralgia and neuritis, [...] (do not use for phone, instead use 33335-32) [facility] [place] 05[place]16/2023 Estab. patient 30-39min; chronic exacerbation, 2 stable chronic or 1 acute illness add add modifier 95 for video, (do not use for phone, instead use 68707-46) [facility] [place] 05/16/2023 Estab. patient 30-39min; chronic exacerbation, 2 stable chronic or 1 acute illness add add modifier 95 for video, (do not use for phone, instead use 36995-00) [facility] [place] 05[place]16/2023 Estab. patient 30-39min; chronic exacerbation, 2 stable chronic or 1 acute illness add add modifier 95 for video, (do not use for phone, instead use 61483-19) [facility] [place] 05/16/2023 Estab. patient 30-39min; chronic exacerbation, 2 stable chronic or 1 acute illness add add modifier 95 for video, (do not use for phone, instead use 50458-27) [facility] [place] 05/16/2023 Estab. patient 30-39min; chronic exacerbation, 2 stable chronic or 1 acute illness add add modifier 95 for video, (do not use for phone, instead use 42742-23) [facility] [place] 05/16/2023 Estab. patient 30-39min; chronic exacerbation, 2 stable chronic or 1 acute illness add add modifier 95 for video, (do not use for phone, instead use 21822-94) [facility] [place] 05/16/2023 Estab. patient 30-39min; chronic exacerbation, 2 stable chronic or 1 acute illness add add modifier 95 for video, (do not use for phone, instead use 12830-73) [facility] [place] 12/27/2023 Morbid (severe) obesity due to excess [...] (do not use for phone, instead use 04871-85) [facility] 12[place]2023 Estab. patient 30-39min; chronic exacerbation, 2 stable chronic or 1 acute illness add add modifier 95 for video, (do not use for phone, instead use 70054-14) [facility] [place] 12/27/2023 Estab. patient 30-39min; chronic exacerbation, 2 stable chronic or 1 acute illness add add modifier 95 for video, (do not use for phone, instead use 18385-51) [facility] [place] 12/27/2023 Estab. patient 30-39min; chronic exacerbation, 2 stable chronic or 1 acute illness add add modifier 95 for video, (do not use for phone, instead use 45462-80) [facility] 12[place]20[place] Estab. patient 30-39min; chronic exacerbation, 2 stable chronic or 1 acute illness add add modifier 95 for video, (do not use for phone, instead use 50376-36) [facility] 12/[place]/2023 Estab. patient 30-39min; chronic exacerbation, 2 stable chronic or 1 acute illness add add modifier 95 for video, (do not use for phone, instead use 50906-51) [facility] 12/[place]/2023 Estab. patient 30-39min; chronic exacerbation, 2 stable chronic or 1 acute illness add add modifier 95 for video, (do not use for phone, instead use 50309-11) [facility] 12/[place]/2023 Estab. patient 30-39min; chronic exacerbation, 2 stable chronic or 1 acute illness add add modifier 95 for video, (do not use for phone, instead use 67146-34) [facility] 12/[place]/2023 Estab. patient 30-39min; chronic exacerbation, 2 stable chronic or 1 acute illness add add modifier 95 for video, (do not use for phone, instead use 18355-29) [facility] 12/[place]/2023 Estab. patient 20-29min; 1 stable chronic or 2 minor; add add modifier 95 for video, modifier 93 for phone [facility] [place] 10/30/2024 Unspecified osteoarthritis, unspecified siteNeuralgia and neuritis, unspecifiedMorbid (severe) obesity due to excess caloriesPolyneuropathy, unspecifiedOth symptoms and signs involving the circ and resp systemsGastro-esophageal reflux disease without esophagitisHyperlipidemia, unspecifiedOther problems related to medical facilities and other health careBody mass index (BMI) 35.0-35.9, adult Estab. patient 20-29min; 1 stable chronic or 2 minor; add add modifier 95 for video, modifier 93 for phone [facility] [place] 10/30/2024 Estab. patient 20-29min; 1 stable chronic or 2 minor; add add modifier 95 for video, modifier 93 for phone [facility] 10/[place]/20[place] Estab. patient 20-29min; 1 stable chronic or 2 minor; add add modifier 95 for video, modifier 93 for phone [facility] 10/[place]/2024 Estab. patient 20-29min; 1 stable chronic or 2 minor; add add modifier 95 for video, modifier 93 for phone [facility] 10/30/2024 Estab. patient 20-29min; 1 stable chronic or 2 minor; add add modifier 95 for video, modifier 93 for phone [facility] 10/30/2024 Vital Signs Date of Collection Vitals 2022-08-06 [...] tive Time Current Smoking Status Former smoker 2024-12-15 3 Sex Male History of Procedures Procedures Service Procedure code Service date Servicing provider Phone# Medication List Documented (1159F) 1159F 2022-08-06 No Data Available No Data Saniya [...] No Data Availab le No Data Available No Data Available 25043 2022-08-06 No Data Available No Data Available Estab. patient 20-29min; 1 stable chronic or 2 minor; add add modifier 95 for video, modifier 93 for phone 38828 2022-08-20 No Data Available No Data Availa [...] Saniya ilable Pain Assessment - NO pain present (1126F) 1126F 2022-08-20 No Data Available No Data A vailable Advance Care Directive Advance care planning discussion documented in the medical record (1158F) 1158F 2022-08-20 No Data Available No Data Availa ble BMI obtained (3008F) 3008F 2022-08-20 No Data Availab le No Data Available Estab. patient 30-39min; chronic exacerbation, 2 stable chronic or 1 acute illness add add modifier 95 for video, (do not use for phone, instead use 22911-00) 09145 2023-05-16 No Data Available No Data Availa [...] Availa ble Pain Assessment - Pain Documented on a Pain Scale (1125F) 1125F 2023-05-16 No Data Available No Data Saniya ilable Functional Status Assessed (1170F) 1170F 2023-05-16 No Data Available No Data Avail able Estab. patient 30-39min; chronic exacerbation, 2 stable chronic or 1 acute illness add add modifier 95 for video, (do not use for phone, instead use 58115-71) 49764 2023-12-27 No Data Available No Data Availa [...] Saniya ilable Pain Assessment - NO pain present (1126F) 1126F 2023-12-27 No Data Available No Data A vailable BMI obtained (3008F) 3008F 2023-12-27 No Data [...] 95 for video, modifier 93 for phone 53522 2024-10-30 No Data Available No Data Availa ble Medication List Documented (1159F) 1159F 2024-10-30 No Data Available No Data Saniya ilable Functional Status Assessed (1170F) 1170F 2024-10-30 No Data Available No Data Avail able Pain Assessment - Pain Documented on a Pain Scale (1125F) 1125F 2024-10-30 No Data Available No Data Saniya ilable Advance Care Directive Advance care planning discussion [...] w PT s/p left elbow surgery circa 2004Frozen joint [M24.60]> left arm elbow frozen - did not do PT after surgery 2005Encouraging pt to consult orthoHistory of alcohol use disorder [Z87.898]> stopped 2014BMI 35.0-35.9,adult [Z68.35]Morbid (severe) obesity due to excess [...] w PT s/p left elbow surgery circa 2004left arm elbow frozen - did not do PT after surgery 2004opped 20142022-08-20 07:17:14 As above. [place] cons ider seeing ortho for frozen arm.Activity, diet. FU 3-4 wks or PRNTelevideo 20-29min; 1 stable chronic or 2 minor; add modifier 95Continue to see PCP. Follow-up with [facility] as needed for any acute or disease [...] Documented (1125F)Continue to see PCP. Follow-up with [facility] as needed for any acute or disease [...] to schedule abel for follow up.Contact CB / as needed.non-compliance w PT s/p left elbow surgery circa 2004[facility] Update 05/16/23:Patient report he did not complete PT after surgery and cannot fully extend left elbow. Denies any acute complaint.left arm elbow frozen - did not do PT after surgery 2005Encouraging pt to consult orthoECCA Update 05/16/23:Patient report he did not complete PT after surgery and cannot fully extend left elbow. Denies any acute complaint.Has appt with Ortho on 05/31/23.Advised to follow up as scheduled. Contact CB 24/ as needed.stopped 2015[facility] Update 05/16/23:Denies any alcohol consumption since 2014.BMI-37.94Advising [...] Follow up with PCP as scheduled.Contact CB 24 as needed.BMI: 43.94Weight management by diet modification discussed with patient.Low fat, low carb, low sugar diet.Stay physically active as tolerated.Follow up with PCP. Contact CB 24 as needed.CONTINGENCY PLANMember to call for the [...] for phoneContinue to see PCP. Follow-up with [facility] as [...] appointments with your PCP and specialists. Call CB 24/7 if you have questions or concerns. Discussed how to contact [facility] via phone or tablet. 24/7 phone number provided. 2023-12-27 Remember to keep all appointments with your PCP and specialists. Call 24/7 if you have questions or concerns. Discussed how to contact [facility] via phone or tablet. 24/7 phone [...]
--- OUTSIDE RECORDS SUMMARY | 2024-12-27 12:22 | XMS_ITS ---
Author Organization [facility] Address [address] [place] [address] Care Team Providers Care Hospital Housekeeper Name Role Phone Reyna Arriaza Primary Care Provider Unavailab Justin Arias Jr REASON FOR VISIT colonoscopy n/s - FYI Encounters Encounter Location Date Provider Diagnosis [facility] [address] [place] [address] 10/26/2023 Justin Turk Jr Plan Of Treatment No Information Progress Notes * YASMIN GARVEYDOB:01/1951 (72 yo M)Acc No.[id number]:10/26/2023 Patient:?LANDRY FARFANPATRICIA ROAS :1950???Age:72 Y???Sex:Male Address:[address], [place], [address] * true * Date:? Generated for Printi bree/iLta/eTransmitting on:?12/27/2024 12:22 PM EDT
--- OUTSIDE RECORDS SUMMARY | 2024-12-27 12:22 | XMS_ITS ---
Author Organization [facility] Address [address] [place] [address] Care Team Providers Care Grades 1 Thru 5 Teacher Name Role Phone Reyna Arriaza Primary Care Provider Unavailab Justin Arias Jr REASON FOR VISIT pathology Encounters Encounter Location Date Provider Diagnosis [facility] [address] [place] [address] 11/24/2023 Justin Turk Jr Plan Of Treatment No Information Progress Notes * YASMIN GARVEYDOB:01/1951 (73 yo M)Acc No.[id number]:11/24/2023 Patient:?LANDRY FARFANPATRICIA ROSA :1950???Age:73 Y???Sex:Male Address:[address], [place], [address] * true * Date:? Generated for Garth giron/Lita/eTransmitting on:?12/27/2024 12:22 PM EDT
--- OUTSIDE RECORDS SUMMARY | 2024-12-27 12:22 | XMS_ITS ---
Author Organization [facility] Address [address] [place] [address] Care Team Providers Care Marine Diesel Mechanic Name Role Phone Reyna Arriaza Primary Care Provider Unavailab Justin Arias Jr REASON FOR VISIT screening Problems Problem Type SNOMED Code ICD Code Onset Dates Problem Status W/U Status Risk Notes Problem History of polyp of colon (situation) (430990486) Personal history of colonic polyps (Z86.010) Active confirmed Encounters Encounter Location Date Provider Diagnosis [facility] [address] [place] [phone] 11/16/2023 Justin Turk Jr Encounter for screening colonoscopy Z12.11 ; Personal history of colonic polyps Z86.010 and Colon polyps K63.5 Assessments Encounter Date Diagnosis (ICD Code) Assessment Notes Treatment Notes Treatment Clinical Notes Section Notes 11/16/2023 Encounter for screening colonoscopy (ICD-10 - Z12.11) 11/16/2023 Personal history of colonic polyps (ICD-10 - Z86.010) 11/16/2023 Colon polyps (ICD-10 - K63.5) Plan Of Treatment No Information Progress Notes * YASMIN GARVEYDOB:01/1951 (74 yo M)Acc No.[id number]:11/16/2023 COLON WITH MAC Patient:?LANDRY FARFAN MANJINDERJayna LEE Provider:?Justin Turk MD :1950???Age:72 Y???Sex:Male Antonio e:11/16/2023 Address:[address] [place] [address] Pcp:Reyna Knutson Subjective: * Chief Complaints: * ???1. Screening. * Medical History:? Objective: * Vitals:? Assessment: * Assessment: 1.?Encounter for screening c olonoscopy - Z12.11 (Primary)???2.?Personal history of colonic polyps - Z86.010???3.?Colon polyps - K63.5??? Plan: * Treatment: * Procedure Codes:?35356 COLON OSCOPY AND BIOPSY * Preventive Medicine:? ??CAROLA Screening:?Colonoscopy?Was interval between colonoscopies three years or more??Yes,?Was last colonoscopy performed three or more years ago??Yes.? * * The named appointment provid er may or may not be the originator of this progress note, and it is not deemed complete until electronically signed by the appointment provider. Sign off status: Pending * Provider:?Justin Turk MD Date:?0 11/16/2023 Generated for Garth giron/Lita/eTransmitting on:?12/27/2024 12:21 PM EDT
--- OUTSIDE RECORDS SUMMARY | 2024-12-27 12:22 | XMS_ITS | Patient Health Record ---
Author Organization [facility] Address [address] [place] [address] Care Team Providers Care Building Guard Deputy Sheriff Name Role Phone Reyna Arriaza Primary Care Provider Unavailab Justin Arias Jr Unavailable Allergies No Known Allergies Reason For Referral No Information Medications Medication SIG (Take, Route, Frequency, Duration) Notes [...] the procedure for 1 day 08/31/2023 Active G51-Cnspot monthly Active Vitamin D Active Atorvastatin Calcium 20 MG TAKE 1 TABLET BY MOUTH AT BEDTIME Oral for 90 E7800,Unavailab claudio Active Colyte with Flavor Packs 240 GM As directed Orally Over the specified time. for 1 day(s) 11/27/2015 Active Immunizations Vaccine Route Administration Date Status Comme nts Influenza Unknown 07/06/2022 Administered Problems Problem Type SNOMED Code ICD Code Onset Dates Problem Status W/U Status Risk Notes Problem 097709522 Colon cancer screening (Z12.11) Active confirmed Problem History of polyp of colon (situation) (515726968) Personal history of colonic polyps (Z86.010) Active confirmed Problem 229895137 Gastroesophageal reflux disease, unspecified whether esophagitis present (K21.9) Active confirmed Plan Of Treatment Future Test Test Name Order Date COLONOSCOPY 11/27/2015 COLONOSCOPY 07/14/2023 Insurance Providers Payer Name Payer Address Payer Phone Subscriber Number Group Number Insured Name Patient Relationship to Insured Coverage Start Date Coverage End Date [facility] [employer] [address] [address] [place] [address] [id number] YASMIN GARVEY Self - patient is the insured MEDICAID [facility] [address] [place] [address] [id number] YASMIN GARVEY Self - patient is the insured Medical (General) History Medical History History ICD Code Back pain Degenerative joint disease B12 deficiency Hyperlipidemia Colonoscopy 03/01, tubular adenoma, five- year followup Gastroesophageal reflux disease Surgical History Surgery Date(Month/Year) Arm and head injury left side
== END 2024-12-27 10:49 | disposition home or self-care (01) ==
LOC: HO.HVS 10:00
PROVIDERS: PCP Internal Medicine; Visit Provider Physician Assistant Surgical
DX: I73.9 Peripheral vascular disease, unspecified (principal)
CPT/HCPCS: 99204

== ENCOUNTER → 2024-12-27 09:59 | Outpatient (BNVA) | payer OTHER, SELFPAY | PROVIDERS: PCP Internal Medicine; Visit Provider Physician Assistant Surgical | DX: I73.9 Peripheral vascular disease, unspecified (principal) | CPT/HCPCS: 99202 ==

== ENCOUNTER 2025-01-29 12:58 | Outpatient (REF) | payer OTHER, SELFPAY ==
--- NOTE | ~2025-01-29 | US_ITS ---
EXAMINATION: Noninvasive assessment of the bilateral lower extremities with ARTERIAL DUPLEX, ANKLE BRACHIAL INDICES (ABIs), and PULSE VOLUME RECORDINGS (PVRs). CLINICAL INFORMATION: Peripheral vascular disease, unspecified. TECHNIQUE: Duplex Doppler techniques with waveform analysis and measurement of velocities in the bilateral common femoral, profunda femoris, superficial femoral, popliteal and tibial arteries were performed. Additionally, ankle pulse volume recordings, ankle pressure measurements and ankle brachial indices were obtained of the lower extremity arterial system bilaterally. The study was performed only at rest. COMPARISON: None FINDINGS: DIRECT DUPLEX DOPPLER FINDINGS: RIGHT LEG: Common femoral artery: 106 cm/s, phasicity: Triphasic. Profunda femoris artery: 81 cm/s, phasicity: Biphasic. Superficial femoral artery (proximal): 95 cm/s, phasicity: Triphasic. Superficial femoral artery (mid): 92 cm/s, phasicity: Triphasic. Superficial femoral artery (distal): 68 cm/s, phasicity: Triphasic. Popliteal artery: 73 cm/s, phasicity: Biphasic. Posterior tibial artery: 94 cm/s, phasicity: Biphasic. Peroneal artery: Not color Doppler. Anterior tibial artery: 47 cm/s, phasicity: Biphasic. Dorsalis pedis artery: 22 cm/s, phasicity:Biphasic. Arrhythmia episodes. LEFT LEG: Common femoral artery: 104 cm/s, phasicity: Triphasic. Profunda femoris artery: 71 cm/s, phasicity: Biphasic. Superficial femoral artery (proximal): 68 cm/s, phasicity: Biphasic. Superficial femoral artery (mid): 103 cm/s, phasicity: Triphasic. Superficial femoral artery (distal): 99 cm/s, phasicity: Biphasic. Popliteal artery: 67 cm/s, phasicity: Biphasic. Posterior tibial artery: 86 cm/s, phasicity: Biphasic. Peroneal artery: 20 cm/s, phasicity: Biphasic Anterior tibial artery: 19 cm/s, phasicity: Biphasic. Dorsalis pedis artery: 22 cm/s, phasicity: Biphasic BRACHIAL PRESSURES: Right: 104 Left: 115 ANKLE PRESSURES: Right: PT 118, DP 120 Left: PT 108, DP 80 ANKLE-BRACHIAL INDEX: Right: 1.04. Left: 0.94 ANKLE PVR WAVEFORMS: Right: Abnormal Left: Abnormal US/US arterial duplex BI w/ NESHA IMPRESSION: Right leg: Moderate inflow disease throughout the majority of the arteries. Left leg: Moderate inflow disease throughout the majority of the interrogated arteries. NESHA Reference: - >1.4 = calcified vessels - 0.9 - 1.4 = normal - no significant arterial disease - 0.7 - 0.89 = mild peripheral arterial disease - 0.51 - 0.69 = moderate peripheral arterial disease - d 0.50 = severe peripheral arterial disease - < .30 = critical arterial disease Electronically signed by: Renaldo Olmos MD 01/30/2025 09:02 AM EDT
--- OUTSIDE RECORDS SUMMARY | 2025-01-29 15:50 | XMS_ITS | Patient Health Record ---
Author Organization [facility] Address [address] [place] [address] Care Team Providers Care Keyseating Machine Set Up Operator Name Role Phone Reyna Arriaza Primary Care Provider Unavailab Justin Arias Jr Unavailable [phone] Allergies No Known Allergies Reason For Referral [...] the procedure for 1 day 08/31/2023 Active H24-Bnqgqo monthly Active Vitamin D Active Atorvastatin Calcium [...] Problem Status W/U Status Risk Notes Problem 374746109 Colon cancer screening (Z12.11) Active confirmed Problem History of polyp of colon (situation) (251614639) Personal history of colonic polyps (Z86.010) Active confirmed Problem 010405725 Gastroesophageal reflux disease, unspecified whether esophagitis present (K21.9) Active confirmed Plan Of Treatment Future Test Test Name Order Date COLONOSCOPY 11/27/2015 COLONOSCOPY 07/14/2023 Insurance Providers Payer Name Payer Address Payer Phone Subscriber Number Group Number Insured Name Patient Relationship to Insured Coverage Start Date Coverage End Date [facility] [employer] [address] [address] [place] [address] [id number] YASMIN GARVEY Self - patient is the insured MEDICAID [facility] [address] [place] [address] [id number] YASMIN GARVEY Self - patient is the insured Medical (General) History Medical History History ICD Code Back pain Degenerative joint disease B12 deficiency Hyperlipidemia Colonoscopy 03/01, tubular adenoma, five- year followup Gastroesophageal reflux disease Surgical History Surgery Date(Month/Year) Arm and head injury left side
--- OUTSIDE RECORDS SUMMARY | 2025-01-29 15:50 | XMS_ITS ---
Author Name Trejo PHARMACY SALES ASSISTANT,BLOCKING MACHINE OPERATOR SECOND,FN P,SERVER MANAGER, Paola Address [address] [place] [address] Phone [phone] [facility] Care Team Providers Care Public Safety Officer Name Role Phone Paola Trejo Unavailable [phone] Reason for Referral Not Available Allergies, adverse [...] Active 2023-12-27 N/A Other problems related to [facility] facilities and other health care [...] Service Diagnosis/Co mplaint Medication List Documented (1159F) [facility]20[place] Medication List Documented (1159F) [facility] Medication List Documented (1159F) [facility] Medication List Documented (1159F) [facility] Medication List Documented (1159F) [facility] Medication List Documented (1159F) [facility]2022 Unspecified osteoarthritis, unspecified siteNeuralgia and neuritis, unspecifiedPolyneuropathy, unspecifiedOth symptoms and signs involving the circ and resp systemsPatient's noncompliance with other medical treatment and regimen due to unspecified reasonAnkylosis, unspecified jointPersonal history of other specified conditions Estab. patient 20-29min; 1 stable chronic or 2 minor; add add modifier 95 for video, modifier 93 for phone [facility]2022 Unspecified osteoarthritis, unspecified siteNeuralgia and [...] 95 for video, modifier 93 for phone [facility]20[place] Estab. patient 20-29min; 1 stable chronic or 2 minor; add add modifier 95 for video, modifier 93 for phone [facility] 08/[place]/2022 Estab. patient 20-29min; 1 stable chronic or 2 minor; add add modifier 95 for video, modifier 93 for phone [facility] 08/20/2022 Estab. patient 20-29min; 1 stable chronic or 2 minor; add add modifier 95 for video, modifier 93 for phone [facility] ([place] 08/20/2022 Estab. patient 20-29min; 1 stable chronic or 2 minor; add add modifier 95 for video, modifier 93 for phone [facility] 08/[place]/2022 Estab. patient 20-29min; 1 stable chronic or 2 minor; add add modifier 95 for video, modifier 93 for phone [facility] 08/20/2022 Estab. patient 20-29min; 1 stable chronic or 2 minor; add add modifier 95 for video, modifier 93 for phone [facility] 08/20/2022 Estab. patient 30-39min; chronic exacerbation, 2 stable chronic or 1 acute illness add add modifier 95 for video, (do not use for phone, instead use 92747-00) [facility] 05/16/2023 Unspecified osteoarthritis, unspecified siteNeuralgia and neuritis, [...] (do not use for phone, instead use 87709-98) [facility] 05[place]16[place]2023 Estab. patient 30-39min; chronic exacerbation, 2 stable chronic or 1 acute illness add add modifier 95 for video, (do not use for phone, instead use 34376-87) [facility] 05[place]16/2023 Estab. patient 30-39min; chronic exacerbation, 2 stable chronic or 1 acute illness add add modifier 95 for video, (do not use for phone, instead use 47880-11) [facility] 05[place]16/2023 Estab. patient 30-39min; chronic exacerbation, 2 stable chronic or 1 acute illness add add modifier 95 for video, (do not use for phone, instead use 88774-69) [facility] [place] 05[place]16/2023 Estab. patient 30-39min; chronic exacerbation, 2 stable chronic or 1 acute illness add add modifier 95 for video, (do not use for phone, instead use 69319-37) [facility] 05[place]16/2023 Estab. patient 30-39min; chronic exacerbation, 2 stable chronic or 1 acute illness add add modifier 95 for video, (do not use for phone, instead use 94690-23) [facility] [place] 05/16/2023 Estab. patient 30-39min; chronic exacerbation, 2 stable chronic or 1 acute illness add add modifier 95 for video, (do not use for phone, instead use 84094-63) [facility] [place] 05/16/2023 Estab. patient 30-39min; chronic exacerbation, 2 stable chronic or 1 acute illness add add modifier 95 for video, (do not use for phone, instead use 32971-82) [facility] 12/27/2023 Morbid (severe) obesity due to excess [...] (do not use for phone, instead use 47087-30) [facility] 12/27/2023 Estab. patient 30-39min; chronic exacerbation, 2 stable chronic or 1 acute illness add add modifier 95 for video, (do not use for phone, instead use 25793-56) [facility] [place] 12/27/2023 Estab. patient 30-39min; chronic exacerbation, 2 stable chronic or 1 acute illness add add modifier 95 for video, (do not use for phone, instead use 74702-73) [facility] 12/27/2023 Estab. patient 30-39min; chronic exacerbation, 2 stable chronic or 1 acute illness add add modifier 95 for video, (do not use for phone, instead use 23896-07) [facility] [place] 12/27/2023 Estab. patient 30-39min; chronic exacerbation, 2 stable chronic or 1 acute illness add add modifier 95 for video, (do not use for phone, instead use 75317-25) [facility] [place] 12/27/2023 Estab. patient 30-39min; chronic exacerbation, 2 stable chronic or 1 acute illness add add modifier 95 for video, (do not use for phone, instead use 94292-20) [facility] 12/27/2023 Estab. patient 30-39min; chronic exacerbation, 2 stable chronic or 1 acute illness add add modifier 95 for video, (do not use for phone, instead use 62716-92) [facility] 12/27/2023 Estab. patient 30-39min; chronic exacerbation, 2 stable chronic or 1 acute illness add add modifier 95 for video, (do not use for phone, instead use 94538-82) [facility] 12/27/2023 Estab. patient 30-39min; chronic exacerbation, 2 stable chronic or 1 acute illness add add modifier 95 for video, (do not use for phone, instead use 67643-68) [facility] [place] 12/27/2023 Estab. patient 20-29min; 1 stable chronic or 2 minor; add add modifier 95 for video, modifier 93 for phone [facility] [place] 10/30/2024 Unspecified osteoarthritis, unspecified siteNeuralgia and neuritis, unspecifiedMorbid (severe) obesity due to excess caloriesPolyneuropathy, unspecifiedOth symptoms and signs involving the circ and resp systemsGastro-esophageal reflux disease without esophagitisHyperlipidemia, unspecifiedOther problems related to medical facilities and other health careBody mass index (BMI) 35.0-35.9, adult Estab. patient 20-29min; 1 stable chronic or 2 minor; add add modifier 95 for video, modifier 93 for phone [facility] ([place] 10/30/2024 Estab. patient 20-29min; 1 stable chronic or 2 minor; add add modifier 95 for video, modifier 93 for phone [facility] 10/30/2024 Estab. patient 20-29min; 1 stable chronic or 2 minor; add add modifier 95 for video, modifier 93 for phone [facility] 10/30/2024 Estab. patient 20-29min; 1 stable chronic or 2 minor; add add modifier 95 for video, modifier 93 for phone [facility] 10/30/2024 Estab. patient 20-29min; 1 stable chronic or 2 minor; add add modifier 95 for video, modifier 93 for phone [facility] [place] 10/30/2024 Vital Signs Date of Collection Vitals [...] tive Time Current Smoking Status Former smoker 2025-01-15 5 Sex Male History of Procedures Procedures Service [...] le No Data Available No Data Available [id number] 2022-08-06 No Data Available No Data Available Estab. patient 20-29min; 1 stable chronic or 2 minor; add add modifier 95 for video, modifier 93 for phone 54129 2022-08-20 No Data Available No Data Availa [...] (do not use for phone, instead use 74810-32) [id number] 2023-05-16 No Data Available No Data Availa [...] (do not use for phone, instead use 64398-25) 92309 2023-12-27 No Data Available No Data Availa [...] 95 for video, modifier 93 for phone 10216 2024-10-30 No Data Available No Data Availa [...] - did not do PT after surgery 2004stopped 20142022-08-20 07:17:14 As above. Daina cons ider [...] to schedule abel for follow up.Contact CB 09/05 as needed.non-compliance w PT s/p left elbow [...] as scheduled. Contact CB 24/7 as needed.stopped 2015[facility] Update 05/16/23:Denies any alcohol [...] as prescribed, follow up as instructed.Contact CB 24/Emelia as needed.12/27/2023:Follows up with PCP.Takes Tylenol as [...] 05/31/23.Advised to follow up as scheduled. Contact MANGO 24/Emelia as needed. 12/27/2023:Follows up with PCP.Takes Tylenol [...] treatment as prescribed, follow up as instructed.Contact MANGO 24/Emelia as needed.12/27/2023:Follows up with PCP.Stable.Continues Omeprazole.Denies any [...] questions or concerns. Discussed how to contact [facility] via phone or tablet. 24/7 phone number provided. 2023-12-27 Remember to keep all appointments with your PCP and specialists. Call 24/7 if you have questions or concerns. Discussed how to contact [facility] via phone or tablet. 24/7 phone number [...]
--- OUTSIDE RECORDS SUMMARY | 2025-01-29 15:50 | XMS_ITS ---
Author Organization [facility] Address [address] [place] [address] Care Team Providers Care Multimedia Producer Name Role Phone Reyna Arriaza Primary Care Provider Unavailab Justin Arias Jr REASON FOR VISIT screening Problems Problem Type SNOMED Code ICD Code Onset Dates Problem Status W/U Status Risk Notes Problem History of polyp of colon (situation) (619248482) Personal history of colonic polyps (Z86.010) Active confirmed Encounters Encounter Location Date Provider Diagnosis [facility] Outpatient [address] [place] [id number] 11/16/2023 Justin Turk Jr Encounter for screening [...] Notes * YASMIN GARVEYDOB:01/1951 (74 yo M)Acc No.[id number]:11/16/2023 COLON WITH MAC Patient:?LANDRY FARFAN MANJINDERJayna LEE Provider:?Justin Turk MD :1950???Age:72 Y???Sex:Male Antonio e:11/16/2023 Address:[address] [place] [address] Pcp:Reyna Knutson Subjective: * Chief Complaints: * ???1. Screening. * Medical History:? Objective: * Vitals:? Assessment: * Assessment: 1.?Encounter for screening c olonoscopy - Z12.11 (Primary)???2.?Personal history of colonic polyps - Z86.010???3.?Colon polyps - K63.5??? Plan: * Treatment: * Procedure Codes:?40588 COLON OSCOPY AND BIOPSY * Preventive Medicine:? [...] MD Date:?0 11/16/2023 Generated for Garth giron/Lita/eTransmitting on:?01/29/2025 03:49 PM EDT
--- OUTSIDE RECORDS SUMMARY | 2025-01-29 15:50 | XMS_ITS ---
Author Organization [facility] Address [address] [place] [address] Care Team Providers Care Warp Tester Name Role Phone Reyna Arriaza Primary Care Provider Unavailab Justin Arias Jr REASON FOR VISIT pathology Encounters Encounter Location Date Provider Diagnosis [facility] [address] [place] [address] 11/24/2023 Justin Turk Jr Plan Of Treatment No Information Progress Notes * YASMIN GARVEYDOB:01/1951 (73 yo M)Acc No.[id number]:11/24/2023 Patient:?LANDRY FARFANPATRICIA ROSA :1950???Age:73 Y???Sex:Male Address:[address], [place], [address] * true * Date:? Generated for Garth giron/Lita/eTransmitting on:?01/29/2025 03:50 PM EDT
--- OUTSIDE RECORDS SUMMARY | 2025-01-29 15:50 | XMS_ITS ---
Author Organization [facility] Address [address] [place] [address] Care Team Providers Care Technical Sales Advisor Name Role Phone Reyna Arriaza Primary Care Provider Unavailab Justin Arias Jr [phone] REASON FOR VISIT colonoscopy n/s - FYI Encounters Encounter Location Date Provider Diagnosis [facility] [address] [place] [address] 10/26/2023 Justin Turk Jr Plan Of Treatment No Information Progress Notes * YASMIN GARVEYDOB:01/1951 (72 yo M)Acc No.[id number]:10/26/2023 Patient:?LANDRY FARFANPATRICIA ROSA :1950???Age:72 Y???Sex:Male Address:[address], [place], [address] * true * Date:? Generated for Printi bree/Lita/eTransmitting on:?01/29/2025 03:50 PM EDT
== END 2025-01-29 12:59 | disposition home or self-care (01) ==
LOC: HO.US 12:58
PROVIDERS: PCP Internal Medicine; Visit Provider Physician Assistant Surgical
DX: I73.9 Peripheral vascular disease, unspecified (principal)
CPT/HCPCS: 93922; 93925

== ENCOUNTER → 2025-01-29 13:02 | Outpatient (BNV) | payer OTHER, SELFPAY | PROVIDERS: PCP Internal Medicine; Visit Provider Radiology Diagnostic Radiology | DX: I73.9 Peripheral vascular disease, unspecified (principal) | CPT/HCPCS: 93922; 93925 ==

== ENCOUNTER 2025-02-07 10:52 | Outpatient (AMB) | payer OTHER, SELFPAY ==
--- NOTE | 2025-02-07 10:56 | A.OFFVIS_ITS ---
Intake Visit Reasons: follow up s/p Arterial US 01/29/25 Intake Note: Patient presents for follow up US. He has no complaints. Accompanied by: Daughter Allergies No Known Allergies Allergy (Verified 02/07/25 10:57) [facility] HPI follow up s/p Arterial US 01/29/25: Details: Judah is presenting today with his daughter for a follow up to arterial duplex US, performed on 01/29/25. We utilized the baby sitter on the Ipad. The pt continues to be asymptomatic and has no new concerns this morning. He is a nonsmoker and not a diabetic. [facility] Medical History (Updated 12/19/24 @ 15:30 by Reyna Knutson MD) Osteoarthritis of right hip Venous (peripheral) insufficiency Right hip pain Lumbar degenerative disc disease GERD (gastroesophageal reflux disease) Pure hypercholesterolemia Pernicious anemia Hypovitaminosis D Surgical History H/O arthroscopy of right knee History of colonoscopy History of surgery on arm Family History Father No problems noted. Mother Diabetes Hypertension Maternal Grandmother Stroke Son No problems noted. Son No problems noted. Daughter No problems noted. Daughter No problems noted. Social History Housing: House Alcohol intake: former Patient Tobacco Use Status: Former Tobacco user Tobacco use type: Cigarette e-Cigarette/Vaping Use: Never Used Second Hand Smoke Exposure: No service: No Current occupational status: disabled Cognitive needs: Yes (cane) Hearing needs: No Vision needs: No Review of Systems Const Reports as per HPI and Denies weakness ENT Reports Normal hearing present and Denies dizziness Card Reports as per HPI, Denies chest pain, Denies chest pain at rest, Denies chest pain with activity, Denies dyspnea and Denies dyspnea on exertion Resp Reports as per HPI, Denies cough, Denies dyspnea and Denies dyspnea on exertion GI Reports as per HPI, Denies abdominal pain, Denies nausea and Denies vomiting Musc Denies numbness Skin/Breast Reports as per HPI, Denies erythema and Denies wounds Neuro Reports Normal hearing present, Denies dizziness, Denies numbness, Denies Sensory deficit (Neuro) and Denies weakness Psych Reports no additional complaints Endo Reports no additional complaints Physical Exam Const General: healthy appearing and no acute distress Orientation/consciousness: patient oriented x3 HEENT Head: Yes normal to inspection Ears: hearing grossly normal bilaterally Mouth: Normal oral and palatal mucosa present Resp Effort & Inspection: normal respiratory effort and able to speak in complete sentences Auscultation: clear to auscultation bilaterally Cardio Jugular venous distension: no JVD Rate: regular rate Rhythm: regular rhythm Heart sounds: S1 normal heart sound present and S2 normal heart sound present Bruits: no abdominal aortic bruits, no carotid bruits, no femoral bruits and no renal bruits Peripheral pulses: Peripheral pulses 2+ throughout GI Inspection: Yes normal to inspection Palpation (GI): No Abdominal aortic bruit present Skin General skin exam: no rashes or lesions noted Wounds: no wounds Hair: normal Neuro General: patient oriented x3 Cranial nerves: Yes Normal hearing present Cognition (Neuro): normal cognition Gait exam (Neuro): Normal gait present Motor exam (neuro): 5/5 motor strength present throughout Sensory Exam: No Sensory deficit (Neuro) Extrem Other: Bilateral lower extremities: strong and palpable DP and PT pulses. Feet are warm to the touch. No discoloration noted. General: Yes normal to inspection, Yes full ROM, Yes capillary refill normal and Yes normal gait Results Reviewed Results Reviewed: Arterial duplex US results from 01/29/25: Left NESHA: 0.94 Right NESHA: 1.04 Right leg: moderate inflow dx throughout the majority of the arteries Left leg: moderate inflow dx throughout the majority of the interrogated arteries Assessment & Plan Assessment & Plan (1) Peripheral arterial disease: Code(s): I73.9 - Peripheral vascular disease, unspecified Category: Medical Plan: Judah is presenting today as a follow up to arterial duplex US, performed on 01/29/25. He continues to remain asymptomatic. He initially presented due to findings on an in-home evaluation with his medical insurance company, which screening indicated he may have peripheral arterial dx. The US revealed normal ABIs with bilateral lower extremity moderate inflow dx throughout. Due to the pt remaining asymptomatic and no significant dx found on US, there is no intervention that is required at this time. We discussed to continue with physical activity, elevation of his legs when sitting, and healthy, well- balanced diet. We discussed the signs and symptoms of claudication and that if he experienced any of them, he can reach back out to us. We will have him follow up only as needed. Thank you for allowing us to participate in the patient's care. If there are any questions or concerns, please do not hesitate to reach out to us. Coding Level of Care Code Est Pt Level 4 (16856) Diagnoses Peripheral arterial disease I73.9 Comment review of arterial duplex US
--- OUTSIDE RECORDS SUMMARY | 2025-02-07 12:46 | XMS_ITS ---
Author Organization [facility] Address [address] [place] [address] Care Team Providers Care Surveying Crew Stake Runner Name Role Phone Reyna Arriaza Primary Care Provider Unavailab Justin Arias Jr REASON FOR VISIT screening Problems Problem Type SNOMED Code ICD Code Onset Dates Problem Status W/U Status Risk Notes Problem History of polyp of colon (situation) (451201708) Personal history of colonic polyps (Z86.010) Active confirmed Encounters Encounter Location Date Provider Diagnosis [facility] Outpatient [address] [place] [phone] 11/16/2023 Justin Turk Jr Encounter for screening [...] Notes * YASMIN GARVEYDOB:01/1951 (74 yo M)Acc No.[id number]:11/16/2023 COLON WITH MAC Patient:?LANDRY FARFAN MANJINDERJayna LEE Provider:?Justin Turk MD :1950???Age:72 Y???Sex:Male Antonio e:11/16/2023 Address:[address] [place] [address] Pcp:Reyna Knutson Subjective: * Chief Complaints: * ???1. Screening. * Medical History:? Objective: * Vitals:? Assessment: * Assessment: 1.?Encounter for screening c olonoscopy - Z12.11 (Primary)???2.?Personal history of colonic polyps - Z86.010???3.?Colon polyps - K63.5??? Plan: * Treatment: * Procedure Codes:?15601 COLON OSCOPY AND BIOPSY * Preventive Medicine:? [...] MD Date:?0 11/16/2023 Generated for Garth giron/Lita/eTransmitting on:?02/07/2025 12:46 PM EDT
--- OUTSIDE RECORDS SUMMARY | 2025-02-07 12:46 | XMS_ITS | Patient Health Record ---
Author Organization [facility] Address [address] [place] [address] Care Team Providers Care Credit Support Specialist Name Role Phone Reyna Arriaza Primary Care [...] the procedure for 1 day 08/31/2023 Active [id number]-Kuajkm monthly Active Vitamin D Active Atorvastatin Calcium [...] Problem Status W/U Status Risk Notes Problem 304337697 Colon cancer screening (Z12.11) Active confirmed Problem History of polyp of colon (situation) (335304462) Personal history of colonic polyps (Z86.010) Active confirmed Problem 737724718 Gastroesophageal reflux disease, unspecified whether esophagitis present (K21.9) Active confirmed Plan Of Treatment Future Test Test Name Order Date COLONOSCOPY 11/27/2015 COLONOSCOPY 07/14/2023 Insurance Providers Payer Name Payer Address Payer Phone Subscriber Number Group Number Insured Name Patient Relationship to Insured Coverage Start Date Coverage End Date [facility] [employer] [address] [address] [place] [address] [id number] YASMIN GARVEY Self - patient is the insured [facility] [address] [place] [address] [id number] YASMIN GARVEY Self - patient is the insured Medical (General) History Medical History History ICD Code Back pain Degenerative joint disease B12 deficiency Hyperlipidemia Colonoscopy 03/01, tubular adenoma, five- year followup Gastroesophageal reflux disease Surgical History Surgery Date(Month/Year) Arm and head injury left side
--- OUTSIDE RECORDS SUMMARY | 2025-02-07 12:46 | XMS_ITS ---
Author Organization [facility] Address [address] [place] [address] Care Team Providers Care Dispatch Clerk Name Role Phone Reyna Arriaza Primary Care Provider Unavailab Justin Arias Jr REASON FOR VISIT pathology Encounters Encounter Location Date Provider Diagnosis [facility] [address] [place] [address] 11/24/2023 Justin Turk Jr Plan Of Treatment No Information Progress Notes * YASMIN GARVEYDOB:01/1951 (73 yo M)Acc No.[id number]:11/24/2023 Patient:?LANDRY FARFANPATRICIA ROSA :1950???Age:73 Y???Sex:Male Address:[address], [place], [address] * true * Date:? Generated for Garth giron/Lita/eTransmitting on:?02/07/2025 12:46 PM EDT
--- OUTSIDE RECORDS SUMMARY | 2025-02-07 12:47 | XMS_ITS ---
Author Name Trejo RECAPPER,[employer] SAL[employer]OCIATE,FN P,USER EXPERIENCE LEAD, Paola Address [address] [place] [id number] Phone [phone] [facility] Care Team Providers Care Coating Machine Helper Name Role Phone Paola Trejo Unavailable [phone] Reason for Referral Not Available Allergies, adverse [...] Active 2023-12-27 N/A Other problems related to [facility] facilities and other health care Active 2023-12-27 [...] Service Diagnosis/Co mplaint Medication List Documented (1159F) [facility]/20[place] Medication List Documented (1159F) [facility]20[place] Medication List Documented (1159F) [facility] Medication List Documented (1159F) [facility]20[place] Medication List Documented (1159F) [facility]20[place] Medication List Documented (1159F) [facility]2022 Unspecified osteoarthritis, unspecified siteNeuralgia and neuritis, unspecifiedPolyneuropathy, unspecifiedOth symptoms and signs involving the circ and resp systemsPatient's noncompliance with other medical treatment and regimen due to unspecified reasonAnkylosis, unspecified jointPersonal history of other specified conditions Estab. patient 20-29min; 1 stable chronic or 2 minor; add add modifier 95 for video, modifier 93 for phone [facility]2022 Unspecified osteoarthritis, unspecified siteNeuralgia [...] 95 for video, modifier 93 for phone [facility]20[place] Estab. patient 20-29min; 1 stable chronic or 2 minor; add add modifier 95 for video, modifier 93 for phone [facility]/20[place] Estab. patient 20-29min; 1 stable chronic or 2 minor; add add modifier 95 for video, modifier 93 for phone [facility] 08/[place]/2022 Estab. patient 20-29min; 1 stable chronic or 2 minor; add add modifier 95 for video, modifier 93 for phone [facility] ([place] 08[place]20/2022 Estab. patient 20-29min; 1 stable chronic or 2 minor; add add modifier 95 for video, modifier 93 for phone [facility]20[place] Estab. patient 20-29min; 1 stable chronic or 2 minor; add add modifier 95 for video, modifier 93 for phone [facility]/2022 Estab. patient 20-29min; 1 stable chronic or 2 minor; add add modifier 95 for video, modifier 93 for phone [facility]2022 Estab. patient 30-39min; chronic exacerbation, 2 stable chronic or 1 acute illness add add modifier 95 for video, (do not use for phone, instead use 13861-94) [facility] 05[place]16/2023 Unspecified osteoarthritis, unspecified siteNeuralgia and neuritis, [...] (do not use for phone, instead use 08862-05) [facility]2023 Estab. patient 30-39min; chronic exacerbation, 2 stable chronic or 1 acute illness add add modifier 95 for video, (do not use for phone, instead use 17081-83) [facility] 05[place]16/2023 Estab. patient 30-39min; chronic exacerbation, 2 stable chronic or 1 acute illness add add modifier 95 for video, (do not use for phone, instead use 19427-69) [facility] 05[place]16/2023 Estab. patient 30-39min; chronic exacerbation, 2 stable chronic or 1 acute illness add add modifier 95 for video, (do not use for phone, instead use 94999-09) [facility] [place] 05[place]16/2023 Estab. patient 30-39min; chronic exacerbation, 2 stable chronic or 1 acute illness add add modifier 95 for video, (do not use for phone, instead use 56652-17) [facility] 05[place]16/2023 Estab. patient 30-39min; chronic exacerbation, 2 stable chronic or 1 acute illness add add modifier 95 for video, (do not use for phone, instead use 82973-09) [facility] [place] 05[place]16/2023 Estab. patient 30-39min; chronic exacerbation, 2 stable chronic or 1 acute illness add add modifier 95 for video, (do not use for phone, instead use 81421-48) [facility] [place] 05[place]16/2023 Estab. patient 30-39min; chronic exacerbation, 2 stable chronic or 1 acute illness add add modifier 95 for video, (do not use for phone, instead use 61169-91) [facility] 12[place]27[place]2023 Morbid (severe) obesity due to excess [...] (do not use for phone, instead use 85381-39) [facility] 12[place]27/2023 Estab. patient 30-39min; chronic exacerbation, 2 stable chronic or 1 acute illness add add modifier 95 for video, (do not use for phone, instead use 38778-03) [facility] [place] 12/27/2023 Estab. patient 30-39min; chronic exacerbation, 2 stable chronic or 1 acute illness add add modifier 95 for video, (do not use for phone, instead use 64582-60) [facility] 12/27/2023 Estab. patient 30-39min; chronic exacerbation, 2 stable chronic or 1 acute illness add add modifier 95 for video, (do not use for phone, instead use 98038-26) [facility] [place] 12[place]27/2023 Estab. patient 30-39min; chronic exacerbation, 2 stable chronic or 1 acute illness add add modifier 95 for video, (do not use for phone, instead use 37974-41) [facility] [place] 12/27/2023 Estab. patient 30-39min; chronic exacerbation, 2 stable chronic or 1 acute illness add add modifier 95 for video, (do not use for phone, instead use 89339-27) [facility] 12[place]/2023 Estab. patient 30-39min; chronic exacerbation, 2 stable chronic or 1 acute illness add add modifier 95 for video, (do not use for phone, instead use 43652-51) [facility] 12[place]27/2023 Estab. patient 30-39min; chronic exacerbation, 2 stable chronic or 1 acute illness add add modifier 95 for video, (do not use for phone, instead use 27082-09) [facility] 12[place]/2023 Estab. patient 30-39min; chronic exacerbation, 2 stable chronic or 1 acute illness add add modifier 95 for video, (do not use for phone, instead use 03735-14) [facility] [place] 12[place]/2023 Estab. patient 20-29min; 1 stable chronic or 2 minor; add add modifier 95 for video, modifier 93 for phone [facility] [place] 10/30/2024 Unspecified osteoarthritis, unspecified siteNeuralgia and neuritis, unspecifiedMorbid (severe) obesity due to excess caloriesPolyneuropathy, unspecifiedOth symptoms and signs involving the circ and resp systemsGastro-esophageal reflux disease without esophagitisHyperlipidemia, unspecifiedOther problems related to medical facilities and other health careBody mass index (BMI) 35.0-35.9, adult Estab. patient 20-29min; 1 stable chronic or 2 minor; add add modifier 95 for video, modifier 93 for phone [facility] ([place] 10/30/2024 Estab. patient 20-29min; 1 stable chronic or 2 minor; add add modifier 95 for video, modifier 93 for phone [facility] 10/30/2024 Estab. patient 20-29min; 1 stable chronic or 2 minor; add add modifier 95 for video, modifier 93 for phone [facility] 10/30/2024 Estab. patient 20-29min; 1 stable chronic or 2 minor; add add modifier 95 for video, modifier 93 for phone [facility] 10/30/2024 Estab. patient 20-29min; 1 stable chronic or 2 minor; add add modifier 95 for video, modifier 93 for phone [facility] 10/30/2024 Vital Signs Date of Collection Vitals [...] tive Time Current Smoking Status Former smoker 2025-01-16 4 Sex Male History of Procedures Procedures Service [...] le No Data Available No Data Available [id number] 2022-08-06 No Data Available No Data Available Estab. patient 20-29min; 1 stable chronic or 2 minor; add add modifier 95 for video, modifier 93 for phone [id number] 2022-08-20 No Data Available No Data Availa [...] (do not use for phone, instead use 21612-59) [id number] 2023-05-16 No Data Available No Data Availa [...] (do not use for phone, instead use 31635-05) [id number] 2023-12-27 No Data Available No Data Availa [...] 95 for video, modifier 93 for phone [id number] 2024-10-30 No Data Available No Data Availa [...] questions or concerns. Discussed how to contact [facility] via phone or tablet. 24/7 phone number provided. 2023-12-27 Remember to keep all appointments with your PCP and specialists. Call 24/7 if you have questions or concerns. Discussed how to contact [facility] via phone or tablet. 24/7 phone [...]
--- OUTSIDE RECORDS SUMMARY | 2025-02-07 12:47 | XMS_ITS ---
Author Organization [facility] Address [address] [place] [address] Care Team Providers Care Huc Name Role Phone Reyna Arriaza Primary Care Provider Unavailab Justin Arias Jr REASON FOR VISIT colonoscopy n/s - FYI Encounters Encounter Location Date Provider Diagnosis [facility] [address] [place] [address] 10/26/2023 Justin Turk Jr Plan Of Treatment No Information Progress Notes * YASMIN GARVEYDOB:01/1951 (72 yo M)Acc No.[id number]:10/26/2023 Patient:?LANDRY FARFANPATRICIA ROSA :1950???Age:72 Y???Sex:Male Address:[address], [place], [address] * true * Date:? Generated for Printi bree/Lita/eTransmitting on:?02/07/2025 12:46 PM EDT
== END 2025-02-07 11:18 | disposition home or self-care (01) ==
LOC: HO.HVS 10:52
PROVIDERS: PCP Internal Medicine; Visit Provider Physician Assistant Surgical
DX: I73.9 Peripheral vascular disease, unspecified (principal)
CPT/HCPCS: 99214

== ENCOUNTER → 2025-02-07 10:52 | Outpatient (BNVA) | payer OTHER, SELFPAY | PROVIDERS: PCP Internal Medicine; Visit Provider Physician Assistant Surgical | DX: I73.9 Peripheral vascular disease, unspecified (principal) | CPT/HCPCS: 99212 ==